=== PATIENT | female | born 1930 | race Caucasian/White ===

== ENCOUNTER 2016-03-05 13:46 | Emergency (ER) | payer OTHER ==
[~2016-03-05] VITALS: Ht 170.2 cm; Wt 74.0 kg
[~2016-03-05 13:46] MED LIST: ASPI81TA28 PO; BUPR-267 PO; CALC1TAB10 PO; MECL1TAB42 PO; MULT-190 PO; OMEP20CA9 PO; SERT-234 PO; SIMV20TA2 PO; TPRSR50 PO; ULT50X PO
[2016-03-05 13:51] VITALS: TEMP 36.9; Ht 170.2 cm; Wt 74.0 kg
[2016-03-05] MEDS ORDERED: METO25TA3 PO (15:26)
[2016-03-05] MEDS ORDERED: CALC8.5C PO (15:26)
[2016-03-05] MEDS ORDERED: MULT-663 PO (15:26)
[2016-03-05] MEDS ORDERED: TRAM-10 PO (15:26)
[2016-03-05] MEDS ORDERED: METOCLOPRAMIDE HCL INJ 5 MG/ML 2 ML VIAL IV STA (15:31)
[2016-03-05] MEDS ORDERED: SODIUM CHLORIDE 0.9% 500ML 500 ML IV STA (15:31)
--- NOTE | 2016-03-05 15:40 | EMERGENCY ROOM VISIT NOTE ---
History Report prepared by Ra: Ruperto Lam Under the Supervision of: Dr. Farshad Padron M.D. First contact with patient: 15:21 Chief Complaint: CONSTIPATION Stated Complaint: UNABLE TO HAVE BOWEL MOVEMENT Nursing Triage Summary: Had a BM on Tuesday, tried dulcolax. Prior BM to that was the . Lower abd pain. Denies vomiting. History of Present Illness The patient is an 85 year old female who presents to the Emergency Room with complaints of persistent lower abdominal pain that started around 12 days ago. She says the pain started when she became constipated. The patient was constipated for around a week until 5 days ago. That night she moved her bowels a couple times. She had been taking Miralax during the week that she was constipated. Currently, she is not constipated anymore. The patient has a history of diverticulitis, and her last colonoscopy was a while ago. She denies any vomiting. Source of History: patient Onset: 12 days ago Position: abdomen (lower) Timing: other (persistent) Associated Symptoms: No vomiting Note: Associated symptoms: Pain started when she became constipated. She denies current constipation, but the pain persisted. Review of Systems See HPI for pertinent positives & negatives. A total of 10 systems reviewed and were otherwise negative. Past Medical & Surgical Medical Problems: (1) HTN (hypertension) (2) Hyperlipidemia Family History Heart disease Social History Smoking Status: Former Smoker Alcohol Use: none Drug Use: none Marital Status: Occupation Status: retired Current/Historical Medications Scheduled Aspirin (Aspirin Ec), 81 MG PO HS Bupropion Hcl (Bupropion Hcl Er), 150 MG PO QAM Calcium W/ Vitamins D & K (Viactiv), 1 TAB PO DAILY Metoprolol Succinate (Toprol Xl), 25 MG PO DAILY Multiple Minerals W/ Vitamins (Citracal Plus), 2 TAB PO DAILY Ocuvite Preservision (Ocuvite Preservision), 1 TAB PO HS Omeprazole (Prilosec), 20 MG PO DAILY Sertraline (Zoloft), 150 MG PO DAILY Simvastatin (Zocor), 20 MG PO QPM Tramadol (Ultram), 50 MG PO HS Scheduled PRN Meclizine Hcl (Meclizine Hcl), 25 MG PO TID PRN for Dizziness or Vertigo Allergies Coded Allergies: Cephalosporins (Unverified Allergy, Unknown, HIVES/RASH, 03/05/16) Celecoxib (Unverified Adverse Reaction, Unknown, upset stomach, 03/05/16) Venlafaxine (Verified Adverse Reaction, Unknown, GI UPSET, 03/05/16) Physical Exam Vital Signs Date Time Temp Pulse Resp B/P Pulse Ox O2 Delivery O2 Flow Rate FiO2 03/05/16 19:33 62 16 166/64 92 03/05/16 17:42 61 16 140/80 97 03/05/16 16:24 64 03/05/16 16:00 70 16 149/82 03/05/16 13:51 36.9 81 18 151/84 94 Room Air Physical Exam GENERAL: Patient is a healthy-appearing well-nourished HEAD: Normocephalic atraumatic EYES: Ocular movements intact pupils equal and react to light OROPHARYNX mucous membranes are moist no exudates present no erythema or edema present NECK: Supple no nuchal rigidity CHEST: Good equal expansion LUNGS: Clear and equal to auscultation CARDIAC: Normal S1 and S2 ABDOMEN: Soft, mild tenderness to RLQ and LLQ, no guarding BACK: No CVA tenderness EXTREMITIES: No pain upon palpation normal muscle strength in all groups no clubbing cyanosis or edema NEURO: Patient is following commands is answering questions appropriately. Alert and oriented x3 Cranial Nerves 2-12 grossly intact Medical Decision & Procedures ER Provider Diagnostic Interpretation: CT results as stated below per my review and radiologist interpretation: ABDOMEN AND PELVIS CT WITH IV AND ORAL CONTRAST CT DOSE: 734.74 mGycm HISTORY: Generalized abdominal pain. TECHNIQUE: Multiaxial CT images of the abdomen and pelvis were performed following the use of intravenous and oral contrast. COMPARISON STUDY: Abdomen and pelvis CT 06/25/2011. FINDINGS: There is a 4.3 x 3.7 cm abdominal aortic aneurysm. This is increased in size in the interval. The heart is mildly enlarged. Bibasilar linear densities consistent with subsegmental atelectasis. There is a right total hip arthroplasty. This results in suboptimal evaluation of the pelvic structures due to the metallic artifact. There is posterior decompression and fusion within the lumbar spine. There is 3 mm of periprosthetic lucency surrounding the bilateral L1 pedicle screws. This is consistent with loosening. A 5 mm hypodense lesion within the right hepatic lobe remain stable. Therefore, this favors a cyst. The gallbladder, pancreas, spleen, and adrenal glands are unremarkable. The kidneys enhance normally. No hydronephrosis. There is pelvic floor collapse. Prior hysterectomy. The bladder is not well-distended but appears unremarkable. Contrast extends into the rectum. Colonic diverticulosis. No bowel wall thickening or obstruction. The appendix is surgically absent. No retroperitoneal lymphadenopathy. Focal area of soft tissue thickening anterior to the L1-L2 disc space. This measures up to 1.5 cm in thickness. However, there is gas within the L1-L2 disc space and no bony erosion. Therefore, this is unlikely to represent a discitis/osteomyelitis. Mildly distended right iliopsoas bursa measuring up to 1.8 cm in thickness. Small amount of fluid lateral to the greater trochanter which measures 1.5 x 3.6 cm. This may represent a trochanteric bursitis. IMPRESSION: 1. No bowel wall thickening or obstruction. 2. Increase in size in the 4.3 x 3.7 cm infrarenal abdominal aortic aneurysm. 3. Posterior decompression and fusion from L1 through L5. Abnormal periprosthetic lucency surrounding the bilateral L1 pedicle screws which favors loosening. 4. There is also focal soft tissue thickening anterior to the L1-L2 disc space level which is nonspecific. There is normal gas within the L1-L2 disc space and no endplate erosions. Therefore, this is unlikely to represent a discitis/osteomyelitis. Clinical correlation recommended. In addition, follow-up abdomen and pelvis CT in one month is recommended to ensure stability of this finding. 5. Mildly distended right iliopsoas bursa. This is consistent with a bursitis. 6. Small fluid collection lateral to the right greater trochanter. This likely represents a trochanteric bursitis. Electronically signed by: Rainer Manuel M.D. 03/05/2016 7:20 PM Dictated Date/Time: 03/05/2016 7:08 PM Laboratory Results 03/05/16 15:44 Red Blood Count 4.26, Mean Corpuscular Volume 89.4, Mean Corpuscular Hemoglobin 29.1, Mean Corpuscular Hemoglobin Concent 32.5, Mean Platelet Volume 8.9, Neutrophils (%) (Auto) 61.9, Lymphocytes (%) (Auto) 26.0, Monocytes (%) (Auto) 9.4, Eosinophils (%) (Auto) 1.6, Basophils (%) (Auto) 1.0, Neutrophils # (Auto) 4.14, Lymphocytes # (Auto) 1.74, Monocytes # (Auto) 0.63, Eosinophils # (Auto) 0.11, Basophils # (Auto) 0.07 03/05/16 15:44 Test 03/05/16 00:00 03/05/16 15:44 Urine Color YELLOW Urine Appearance CLEAR (CLEAR) Urine pH 5.0 (4.5-7.5) Urine Specific [place] 1.008 (1.000-1.030) Urine Protein NEG (NEG) Urine Glucose (UA) NEG (NEG) Urine Ketones NEG (NEG) Urine Occult Blood TRACE (NEG) Urine Nitrite NEG (NEG) Urine Bilirubin NEG (NEG) Urine Urobilinogen NEG (NEG) Urine Leukocyte Esterase SMALL (NEG) Urine WBC (Auto) 1-5 /hpf (0-5) Urine RBC (Auto) 0-4 /hpf (0-4) Urine Hyaline Casts (Auto) 0 /lpf (0-5) Urine Epithelial Cells (Auto) 10-20 /lpf (0-5) Urine Bacteria (Auto) NEG (NEG) White Blood Count 6.70 K/uL (4.8-10.8) Red Blood Count 4.26 M/uL (4.2-5.4) Hemoglobin 12.4 g/dL (12.0-16.0) Hematocrit 38.1 % (37-47) Mean Corpuscular Volume 89.4 fL (80-100) Mean Corpuscular Hemoglobin 29.1 pg (25-34) Mean Corpuscular Hemoglobin Concent 32.5 g/dl (32-36) Platelet Count 313 K/uL (130-400) Mean Platelet Volume 8.9 fL (7.4-10.4) Neutrophils (%) (Auto) 61.9 % Lymphocytes (%) (Auto) 26.0 % Monocytes (%) (Auto) 9.4 % Eosinophils (%) (Auto) 1.6 % Basophils (%) (Auto) 1.0 % Neutrophils # (Auto) 4.14 K/uL (1.4-6.5) Lymphocytes # (Auto) 1.74 K/uL (1.2-3.4) Monocytes # (Auto) 0.63 K/uL (0.11-0.59) Eosinophils # (Auto) 0.11 K/uL (0-0.5) Basophils # (Auto) 0.07 K/uL (0-0.2) RDW Standard Deviation 45.6 fL (36.4-46.3) RDW Coefficient of Variation 13.9 % (11.5-14.5) Immature Granulocyte % (Auto) 0.1 % Immature Granulocyte # (Auto) 0.01 K/uL (0.00-0.02) Anion Gap 11.0 mmol/L (3-11) Est Creatinine Clear Calc Drug Dose 37.3 ml/min Estimated GFR () 48.4 Estimated GFR (Non- 41.8 BUN/Creatinine Ratio 19.8 (10-20) Calcium Level 9.1 mg/dl (8.5-10.1) Total Bilirubin 0.3 mg/dl (0.2-1) Direct Bilirubin < 0.1 mg/dl (0-0.2) Aspartate Amino Transf (AST/SGOT) 16 U/L (15-37) Alanine Aminotransferase (ALT/SGPT) 14 U/L (12-78) Alkaline Phosphatase 97 U/L (45-117) Total Protein 8.1 gm/dl (6.4-8.2) Albumin 3.7 gm/dl (3.4-5.0) Lipase 227 U/L (73-393) Labs reviewed by ED physician. Medications Administered Medications (Trade) Dose Ordered Sig/Vaughn Route Start Time Stop Time Status Last Admin Dose Admin Sodium Chloride (Nss 500ml) 500 ml @ 999 mls/hr Q31M STAT IV 03/05/16 15:31 03/05/16 16:01 DC 03/05/16 16:03 999 MLS/HR Metoclopramide HCl (Reglan Inj) 10 mg NOW STAT IV 03/05/16 15:31 03/05/16 15:33 DC 03/05/16 16:03 10 MG ED Course 1525: Past medical records reviewed. The patient was evaluated in room A11B. A complete history and physical examination was performed. 1531: Ordered Reglan Inj 10 mg IV, NSS 500 ml @ 999 mls/hr IV. 1936: I reevaluated the patient and she is resting comfortably. The patient verbally expressed understanding and agreement of the treatment plan. The patient will be discharged. Medical Decision Differential diagnosis: Etiologies such as appendicitis, diverticulitis, PUD, biliary pathology, UTI, pancreatitis, obstruction, mesenteric ischemia, aortic pathology, infections, inflammatory bowel disease, renal colic, as well as others were entertained. This is an 85-year-old female who presents emergency department bowel movement pencil thin stools and having difficulty with a bowel movement since the . The patient is requesting a CAT scan to get a better look and does not feel that she is constipated. She has a normal CBC normal renal renal profile normal liver profile normal lipase. Based on the patient's complaint she was sent for a CAT scan of the abdomen pelvis. No an IV was established, the patient was given normal saline bolus as well as Reglan. The CAT scan does not show any evidence of obstruction. I do believe that the patient can be placed on magnesium citrate for a cleanout. I did stress the need for follow-up with gastroenterology to the patient as well as follow-up with the patient's primary care physician and have a repeat CAT scan of the abdomen pelvis performed in 1 month. Repeat abdominal examination revealed no tenderness on examination. I believe that the patient as well as to be discharged home. Patient was in agreement with the treatment plan. Impression Primary Impression: Abdominal pain Additional Impression: Constipation Scribe Attestation The scribe's documentation has been prepared under my direction and personally reviewed by me in its entirety. I confirm that the note above accurately reflects all work, treatment, procedures, and medical decision making performed by me. Departure Information Dispostion Home / Self-Care Referrals Demetris Garcia M.D. (PCP) Forms HOME CARE DOCUMENTATION FORM, IMPORTANT VISIT INFORMATION, School Instructions, Work Instructions Patient Instructions Constipation, ED Diet Clear Liquid, ED Epigastric Pain [facility], [facility] Additional Instructions Take 1/2 bottle of Mag Citrate Repeat second half in six hours Clear liquid diet next [address] scan in one month with PCP You have been examined and treated today on an emergency basis only. This is not a substitute for, or an effort to provide, complete comprehensive medical care. It is impossible to recognize and treat all injuries or illnesses in a single emergency department visit. It is therefore important that you follow up closely with Dr Garcia. Call as soon as possible for an appointment. Thank you for your time and consideration. I look forward to speaking with you again soon. Please don't hesitate to call us if you have any questions. Problem Qualifiers Primary Impression: Abdominal pain Abdominal location: epigastric Qualified Codes: R10.13 - Epigastric pain Additional Impression: Constipation Constipation type: unspecified constipation type Qualified Codes: K59.00 - Constipation, unspecified
[2016-03-05] MEDS ORDERED: OPTIRAY 320 IV PRN (15:45)
[2016-03-05 15:57] LABS: BASO ABS # 0.07 K/uL (0-0.2); COMPLETE YES; EOS % 1.6 %; HEMATOCRIT 38.1 % (37-47); IG% 0.1 %; LYMPH ABS # 1.74 K/uL (1.2-3.4); MEAN CELL VOLUME 89.4 fL (80-100); MEAN CORPUSCULAR HEMOGLOBIN 29.1 pg (25-34); MEAN CORPUSCULAR HGB CONC 32.5 g/dl (32-36); MEAN PLATELET VOLUME 8.9 fL (7.4-10.4); MONO % 9.4 %; NEUT % 61.9 %; PLATELET COUNT 313 K/uL (130-400); RED BLOOD COUNT 4.26 M/uL (4.2-5.4)
[2016-03-05 16:19] LABS: ALT/SGPT 14 U/L (12-78); BLOOD UREA NITROGEN 24 mg/dl (7-18); BUN/CREATININE RATIO 19.8 (10-20); CALCIUM 9.1 mg/dl (8.5-10.1); CARBON DIOXIDE 27 mmol/L (21-32); CHLORIDE 104 mmol/L (98-107); GLUCOSE 101 mg/dl (70-99); POTASSIUM 4.1 mmol/L (3.5-5.1); SODIUM 142 mmol/L (136-145)
[2016-03-05 16:22] LABS: ALKALINE PHOSPHATASE 97 U/L (45-117); AST/SGOT 16 U/L (15-37)
--- NOTE | 2016-03-05 19:22 | DIAGNOSTIC IMAGING REPORT ---
ABDOMEN AND PELVIS CT WITH IV AND ORAL CONTRAST CT DOSE: 734.74 mGycm HISTORY: Generalized abdominal pain. TECHNIQUE: Multiaxial CT images of the abdomen and pelvis were performed following the use of intravenous and oral contrast. COMPARISON STUDY: Abdomen and pelvis CT 06/25/2011. FINDINGS: There is a 4.3 x 3.7 cm abdominal aortic aneurysm. This is increased in size in the interval. The heart is mildly enlarged. Bibasilar linear densities consistent with subsegmental atelectasis. There is a right total hip arthroplasty. This results in suboptimal evaluation of the pelvic structures due to the metallic artifact. There is posterior decompression and fusion within the lumbar spine. There is 3 mm of periprosthetic lucency surrounding the bilateral L1 pedicle screws. This is consistent with loosening. A 5 mm hypodense lesion within the right hepatic lobe remain stable. Therefore, this favors a cyst. The gallbladder, pancreas, spleen, and adrenal glands are unremarkable. The kidneys enhance normally. No hydronephrosis. There is pelvic floor collapse. Prior hysterectomy. The bladder is not well-distended but appears unremarkable. Contrast extends into the rectum. Colonic diverticulosis. No bowel wall thickening or obstruction. The appendix is surgically absent. No retroperitoneal lymphadenopathy. Focal area of soft tissue thickening anterior to the L1-L2 disc space. This measures up to 1.5 cm in thickness. However, there is gas within the L1-L2 disc space and no bony erosion. Therefore, this is unlikely to represent a discitis/osteomyelitis. Mildly distended right iliopsoas bursa measuring up to 1.8 cm in thickness. Small amount of fluid lateral to the greater trochanter which measures 1.5 x 3.6 cm. This may represent a trochanteric bursitis. IMPRESSION: 1. No bowel wall thickening or obstruction. 2. Increase in size in the 4.3 x 3.7 cm infrarenal abdominal aortic aneurysm. 3. Posterior decompression and fusion from L1 through L5. Abnormal periprosthetic lucency surrounding the bilateral L1 pedicle screws which favors loosening. 4. There is also focal soft tissue thickening anterior to the L1-L2 disc space level which is nonspecific. There is normal gas within the L1-L2 disc space and no endplate erosions. Therefore, this is unlikely to represent a discitis/osteomyelitis. Clinical correlation recommended. In addition, follow-up abdomen and pelvis CT in one month is recommended to ensure stability of this finding. 5. Mildly distended right iliopsoas bursa. This is consistent with a bursitis. 6. Small fluid collection lateral to the right greater trochanter. This likely represents a trochanteric bursitis. Electronically signed by: Rainer Manuel M.D. 03/05/2016 7:20 PM Dictated Date/Time: 03/05/2016 7:08 PM
[2016-03-05 19:33] VITALS: BP 166/64; PULSE 62; O2SAT 92
[2016-03-05 19:37] LABS: URINE APPEARANCE CLEAR (CLEAR); URINE BILIRUBIN NEG (NEG); URINE COLOR YELLOW; URINE NITRITE NEG (NEG); URINE SPECIFIC GRAVITY 1.008 (1.000-1.030); UROBILINOGEN NEG (NEG)
[2016-03-05 19:38] LABS: MANUAL MICROSCOPIC REQUIRED? NO; REVIEW REQ? NO
[2016-03-05] MEDS ORDERED: MAGNESIUM CITRATE 296 ML/BTL ONE (20:03)
[2016-03-05] MEDS ORDERED: MAGNESIUM CITRATE 296 ML/BTL PO STA (20:04)
[2016-03-26] MEDS ORDERED: ACET-1256 PO ×2 (13:28)
== END 2016-03-05 20:15 | disposition home or self-care (01) ==
LOC: EDBD 13:46 → C.EDB 13:47 → C.EDA 20:15
DX: R10.13 Epigastric pain (principal); K59.00 Constipation, unspecified; I10 Essential (primary) hypertension; E78.5 Hyperlipidemia, unspecified; Z87.891 Personal history of nicotine dependence; Z79.82 Long term (current) use of aspirin; Z79.899 Other long term (current) drug therapy

== ENCOUNTER → 2016-03-26 | Outpatient (CLI) | payer OTHER ==
[~2016-03-26] MED LIST changes: +ACET-1256 PO; -CALC1TAB10 PO; +CALC8.5C PO; +METO25TA3 PO; +MULT-663 PO; -TPRSR50 PO; +TRAM-10 PO; -ULT50X PO
--- NOTE | 2016-03-26 15:38 | DIAGNOSTIC IMAGING REPORT ---
LUMBAR SPINE RADIOGRAPHS, INCLUDING FLEXION AND EXTENSION CLINICAL HISTORY: Lumbago. History of fusion. COMPARISON: Lumbar spine MRI June 22, 2007 and lumbar spine fluoroscopic images July 11, 2013. FINDINGS: There are findings consistent with a posterior decompression with bilateral pedicle screws at the L1-L5 levels. The hardware is intact. There is lucency surrounding the L1 pedicle screws. No acute fracture is identified. There is 8 mm of retrolisthesis of L1 on L2 and minimal retrolisthesis of L2 on L3. This does not significantly change with flexion or extension. Extensive atherosclerotic plaque of the abdominal aorta is noted. Right hip arthroplasty is incidentally noted. IMPRESSION: 1. Status post L1-L5 bilateral pedicle screw fusion with decompression. Lucency surrounding the L1 pedicle screws suggests loosening. 2. No acute lumbar spine fracture. 3. Mild retrolisthesis of L1 on L2 and L2 on L3 which does not significantly change with flexion or extension. Electronically signed by: Neymar rCum M.D. 03/26/2016 3:36 PM Dictated Date/Time: 03/26/2016 3:29 PM
== END | disposition home or self-care (01) ==
LOC: C.RADBC 14:36
PROVIDERS: ATTEND Anesthesiology
DX: M54.5 Low back pain (principal)

== ENCOUNTER → 2016-05-31 | Outpatient (CLI) | payer OTHER ==
[~2016-05-31] MED LIST changes: -METO25TA3 PO
--- NOTE | 2016-05-31 15:32 | DIAGNOSTIC IMAGING REPORT ---
MRI OF THE LUMBAR SPINE WITHOUT CONTRAST CLINICAL HISTORY: Lumbar pain. COMPARISON STUDY: Lumbar spine MRI June 22, 2007 and lumbar spine fluoroscopic images July 11, 2013 and lumbar spine radiographs March 26, 2016. TECHNIQUE: Utilizing a 1.5 Khushi magnet and dedicated coil, multiplanar, multiecho imaging of the lumbar spine was performed without IV contrast. FINDINGS: For purposes of numbering on this exam, the L5-S1 disc space is assigned to axial image 27 of 30. There is a posterior decompression with bilateral pedicle screws at the L1, L2, L3, L4 and L5 levels. There is slight retrolisthesis of L1 on L2. No suspicious marrow replacement is present. There is a hemangioma within T12 vertebral body. The conus terminates at the L1 level. There is a 2.8 x 1.2 x 1.7 cm laminectomy bed fluid collection at the L4 level. An abdominal aortic aneurysm is suboptimally assessed on this exam but is similar to CT of March 05, 2016, measuring approximate 4.3 cm in caliber. L1-2: There is disc space narrowing with disc bulge and a central disc protrusion that results in moderate narrowing of the central canal. This is slightly increased since MRI of June 22, 2007. Findings are suboptimally assessed due to artifact related to the hardware. L2-3: The central canal and neural foramen are patent. L3-4: There is disc space narrowing with a disc bulge. The central canal is patent. There is mild narrowing of the left neural foramen. L4-5: Central canal and neural foramen are patent. L5-S1: Central canal and neural foramen are patent. IMPRESSION: 1. Status post L1-L5 bilateral pedicle screw fusion with decompression. 2. Small 2.8 x 1.2 x 1.7 cm laminectomy bed fluid collection at the L4 level. This likely reflects a seroma. A pseudomeningocele could appear similar although is considered less likely. 3. Disc bulge with a moderate-sized central disc protrusion at L1-L2. Resultant moderate narrowing of the central canal. 4. Mild multilevel neural foraminal stenosis. Electronically signed by: Neymar Crum M.D. 05/31/2016 3:29 PM Dictated Date/Time: 05/31/2016 3:21 PM
--- NOTE | 2016-05-31 15:41 | DIAGNOSTIC IMAGING REPORT ---
MRI OF THE THORACIC SPINE WITHOUT CONTRAST CLINICAL HISTORY: Thoracic pain. COMPARISON: Chest CT January 07, 2012. TECHNIQUE: Utilizing a 1.5 Khushi magnet and dedicated coil, multiplanar, multiecho imaging of the thoracic spine was performed without IV contrast. FINDINGS: Alignment of the thoracic spine is anatomic. Vertebral body heights are maintained. There is no intracanalicular mass or fluid collection. Thoracic cord signal and caliber are normal. T1 and T2 hyperintense lesions within the thoracic spine are consistent with hemangiomas. There is no suspicious marrow replacement. Paravertebral soft tissues are unremarkable. Central canal and neural foramen are patent. No disc herniations are identified. Lumbar spinal hardware is better depicted on the MRI of the lumbar spine. IMPRESSION: Unremarkable MRI of the thoracic spine. Electronically signed by: Neymar Crum M.D. 05/31/2016 3:40 PM Dictated Date/Time: 05/31/2016 3:34 PM
== END | disposition home or self-care (01) ==
LOC: C.MRI 14:13
PROVIDERS: ATTEND Orthopaedic Surgery Orthopaedic Surgery of the Spine
DX: M54.6 Pain in thoracic spine (principal); M54.5 Low back pain

== ENCOUNTER → 2016-07-06 | Outpatient (CLI) | payer OTHER ==
--- NOTE | 2016-07-06 16:38 | MAMMOGRAPHY REPORT ---
BILATERAL DIGITAL SCREENING MAMMOGRAM WITH CAD: 07/06/2016 CLINICAL HISTORY: Routine screening. Patient has no complaints. TECHNIQUE: Bilateral CC and MLO views were obtained. Current study was also evaluated with a Comput er Aided Detection (CAD) system. COMPARISON: Comparison is made to exams dated: 07/04/2015 mammogram, 07/02/2014 mammogram, 06/28/2012 mammogram, 06/28/2011 mammogram, 06/29/2010 mammogram, and 06/24/2010 mammogram - [facility]. BREAST COMPOSITION: There are scattered areas of fibroglandular density in both breasts. FINDINGS: There are scattered bilateral benign-appearing rounded rim calcifications. Mild to modera te vascular calcifications in the breasts. No suspicious mass, architectural distortion or cluster of suspicious microcalcifications is seen. IMPRESSION: ACR BI-RADS CATEGORY 1: NEGATIVE There is no mammographic evidence of malignancy. A 1 year screening mammogram is recommended. The p atient will receive written notification of the results. Approximately 10% of breast cancers are not detected with mammography. A negative mammographic repor t should not delay biopsy if a clinically suggestive mass is present. Evy Huber M.D. ay/:07/06/2016 14:43:30 Ballast Regulator Operator: Desiree BALTAZAR(Michel)(Baylee), [facility] letter sent: Normal 1/2 BI-RADS Code: ACR BI-RADS Category 1: Negative
== END | disposition home or self-care (01) ==
LOC: C.MAMM 13:05
PROVIDERS: ATTEND Internal Medicine
DX: Z12.31 Encounter for screening mammogram for malignant neoplasm of breast (principal)

== ENCOUNTER → 2016-07-07 | Outpatient (CLI) | payer OTHER ==
--- NOTE | 2016-07-07 12:06 | DIAGNOSTIC IMAGING REPORT ---
ABDOMINAL AORTIC ULTRASOUND CLINICAL HISTORY: Aneurysm of infrarenal abdominal aorta. COMPARISON STUDY: Abdominal aortic ultrasound May 12, 2015. FINDINGS: There is moderate atherosclerotic plaque. An infrarenal abdominal aortic aneurysm is again noted. This aneurysm measures 3.8 x 3.6 cm. This is similar to exam of May 12, 2015 when it measured approximately 3.8 x 4 cm. IMPRESSION: No significant change in the infrarenal abdominal aortic aneurysm which measures approximately 3.8 cm since ultrasound of May 12, 2015. Electronically signed by: Neymar Crum M.D. 07/07/2016 12:04 PM Dictated Date/Time: 07/07/2016 12:02 PM
== END | disposition home or self-care (01) ==
LOC: C.ULTRBC 11:26
PROVIDERS: ATTEND Internal Medicine
DX: I71.4 Abdominal aortic aneurysm, without rupture (principal)

== ENCOUNTER → 2016-07-26 | Outpatient (CLI) | payer OTHER ==
[2016-07-26 14:45] LABS: HEMATOCRIT 36.7 % (37-47); MEAN CELL VOLUME 83.6 fL (80-100); MEAN CORPUSCULAR HEMOGLOBIN 25.5 pg (25-34); MEAN CORPUSCULAR HGB CONC 30.5 g/dl (32-36); PLATELET COUNT 312 K/uL (130-400); RED BLOOD COUNT 4.39 M/uL (4.2-5.4); WHITE BLOOD COUNT 7.01 K/uL (4.8-10.8)
--- NOTE | 2016-07-26 17:39 | DIAGNOSTIC IMAGING REPORT ---
THREE-PHASE BONE SCAN OF THE HIPS CLINICAL HISTORY: RIGHT HIP PAIN COMPARISON STUDY: 03/10/2015, CT scan dated 03/05/2016, conventional radiographic study dated 03/12/2014 FINDINGS: The patient was injected with 26 mCi of technetium 99m MDP. Anterior posterior vascular sequences were performed centered on the hips. Flow appears symmetric. Blood pool images demonstrated slight increased activity in the region the right hip. Delayed images demonstrate a focus of increased activity overlying the right symphysis pubis. This likely represents the bladder. There is a photopenic defect involving the right femoral head consistent with patient's known total right hip arthroplasty. There is increased activity surrounding the femoral portion of the prosthesis. This is increased when compared the prior March 2015 study. The findings could indicate loosening. Correlation with recent conventional radiographs is advocated. IMPRESSION: 1. Increasing nonspecific activity surrounding the femoral portion of the patient's right hip prosthesis. While nonspecific, this could indicate loosening. Correlation with recent conventional radiographs is recommended. Electronically signed by: Ethan Sotelo M.D. 07/26/2016 5:37 PM Dictated Date/Time: 07/26/2016 5:31 PM
== END | disposition home or self-care (01) ==
LOC: C.NUCL 13:39
PROVIDERS: ATTEND Orthopaedic Surgery Sports Medicine
DX: M25.551 Pain in right hip (principal); Z96.641 Presence of right artificial hip joint

== ENCOUNTER → 2016-08-06 | Outpatient (CLI) | payer OTHER ==
--- NOTE | 2016-08-06 10:26 | DIAGNOSTIC IMAGING REPORT ---
RIGHT HIP CT CT DOSE: 329.69 mGy.cm HISTORY: RT HIP PAIN TECHNIQUE: Multiaxial CT images of the right hip were performed and reformatted in the sagittal and coronal plane without the use of contrast. COMPARISON: Abdomen and pelvis CT 03/05/2016. FINDINGS: There is a right total hip arthroplasty. Metallic artifact results in suboptimal evaluation of the right hip. The hardware appears intact. No abnormal periprosthetic lucency. No definite fracture or dislocation within the right hip. The fluid collection within the lateral aspect of the right hip is not clearly identified and may have resolved in the interval. However, this is suboptimally assessed due to the lack of intravenous contrast. No masses or hematoma within the right hip. IMPRESSION: 1. Right total hip arthroplasty. No fracture or dislocation within the right hip. 2. Suboptimal evaluation of the right hip due to the metallic artifact. The fluid collection within the lateral aspect of the right seen on the prior study is not clearly identified and likely resolved. Electronically signed by: Rainer Manuel M.D. 08/06/2016 10:25 AM Dictated Date/Time: 08/06/2016 10:19 AM
== END | disposition home or self-care (01) ==
LOC: C.ULTR 09:24 → EDSTATUS 10:00
PROVIDERS: ATTEND Orthopaedic Surgery Sports Medicine
DX: M25.551 Pain in right hip (principal); M70.61 Trochanteric bursitis, right hip

== ENCOUNTER 2017-03-11 15:11 | Emergency (ER) | payer OTHER ==
[~2017-03-11] VITALS: Ht 170.2 cm; Wt 73.2 kg
[~2017-03-11 15:11] MED LIST changes: -ASPI81TA28 PO; -BUPR-267 PO; -MULT-190 PO; -MULT-663 PO; -OMEP20CA9 PO; -SERT-234 PO; -SIMV20TA2 PO; -TRAM-10 PO
[2017-03-11 15:15] VITALS: TEMP 37.1; Ht 170.2 cm; Wt 73.2 kg
[2017-03-11] MEDS ORDERED: MULT-663 PO (15:26)
[2017-03-11] MEDS ORDERED: TRAM-10 PO (15:26)
[2017-03-11] MEDS ORDERED: METO25TA3 PO (16:08)
[2017-03-11] MEDS ORDERED: GABA-113 PO (16:08)
[2017-03-11] MEDS ORDERED: SODIUM CHLORIDE 0.9% 1000ML 1,000 ML IV STA (16:09)
[2017-03-11] MEDS ORDERED: OPTIRAY 320 IV PRN (16:15)
[2017-03-11 16:28] LABS: BASO % 0.9 %; BASO ABS # 0.06 K/uL (0-0.2); EOS % 1.6 %; EOS ABS # 0.11 K/uL (0-0.5); HEMATOCRIT 39.5 % (37-47); HEMOGLOBIN 12.9 g/dL (12.0-16.0); IG# 0.01 K/uL (0.00-0.02); LYMPH % 26.9 %; LYMPH ABS # 1.85 K/uL (1.2-3.4); MEAN CELL VOLUME 82.1 fL (80-100); MEAN CORPUSCULAR HEMOGLOBIN 26.8 pg (25-34); MEAN CORPUSCULAR HGB CONC 32.7 g/dl (32-36); MEAN PLATELET VOLUME 9.4 fL (7.4-10.4); MONO % 8.3 %; MONO ABS # 0.57 K/uL (0.11-0.59); NEUT % 62.2 %; NEUT ABS # 4.29 K/uL (1.4-6.5); PLATELET COUNT 300 K/uL (130-400); RED CELL DISTRIBUTION WIDTH CV 15.2 % (11.5-14.5); RED CELL DISTRIBUTION WIDTH SD 45.6 fL (36.4-46.3); WHITE BLOOD COUNT 6.89 K/uL (4.8-10.8)
[2017-03-11 16:30] LABS: ISTAT IONIZED CALCIUM 1.23 mmol/l (1.12-1.32); ISTAT POTASSIUM 3.8 mEq/L (3.3-5.0)
--- NOTE | 2017-03-11 16:48 | EMERGENCY ROOM VISIT NOTE ---
History Report prepared by Ra: Quinton Johansen Under the Supervision of: Dr. Lance Herrera M.D. First contact with patient: 15:45 Chief Complaint: ILLNESS Stated Complaint: ILLNESS, VOMITING History of Present Illness The patient is a 86 year old female who presents to the Emergency Room with complaints of persistent generalized illness beginning three days ago. Her symptoms include nausea, headache, and fatigue. She also complains of dizziness after standing up and looking to the right (but not the left). The patient denies chest pain, SOB, diarrhea, fevers, ear pain, vomiting, or abdominal pain. She states that she as constipated this week. She denies any new medication changes. The patient states that she has been eating very little recently due to her nausea. She has a history of depression. She states that she has not left her house in about a month due to the weather. Source of History: patient Onset: Three days ago Position: other (generalized) Quality: other (illness) Timing: other (persistent) Associated Symptoms: + headache, + nausea, + fatigue, No fevers, No chest pain, No SOB, No vomiting, No abdominal pain, No diarrhea Note: The patient denies ear pain. She also complains of dizziness after standing up and looking to the right (but not the left). Review of Systems See HPI for pertinent positives & negatives. A total of 10 systems reviewed and were otherwise negative. Past Medical & Surgical Medical Problems: (1) Abrasions of multiple sites (2) Contusion of multiple sites (3) Contusion of multiple sites (4) Depression (5) Fall (6) Fall (7) Hip fracture, right (8) HTN (hypertension) (9) Hyperlipidemia (10) Minor head injury (11) Wound infection Surgical Problems: (1) Postoperative state Old medical records were reviewed. Nurse's notes were reviewed and I agree with. Family History Heart disease Social History Smoking Status: Former Smoker Alcohol Use: none Drug Use: none Marital Status: Occupation Status: retired Current/Historical Medications Scheduled Aspirin (Aspirin Ec), 81 MG PO HS Bupropion Hcl (Bupropion Hcl Er), 150 MG PO QAM Gabapentin (Neurontin), 300 MG PO TID Metoprolol Succ (Toprol Xl) (Toprol-Xl), 25 MG PO DAILY Multiple Minerals W/ Vitamins (Citracal Plus), 2 TAB PO DAILY Ocuvite Preservision (Ocuvite Preservision), 1 TAB PO HS Omeprazole (Prilosec), 20 MG PO DAILY Ondasetron Odt (Zofran Odt), 4 MG SL Q6H Sertraline (Zoloft), 150 MG PO DAILY Simvastatin (Zocor), 20 MG PO QPM Tramadol (Ultram), 50 MG PO TID Allergies Coded Allergies: Cephalosporins (Unverified Allergy, Unknown, HIVES/RASH, 03/05/16) Celecoxib (Unverified Adverse Reaction, Unknown, upset stomach, 03/05/16) Venlafaxine (Verified Adverse Reaction, Unknown, GI UPSET, 03/05/16) Physical Exam Vital Signs Date Time Temp Pulse Resp B/P (MAP) Pulse Ox O2 Delivery O2 Flow Rate FiO2 03/11/17 18:09 64 18 141/73 95 03/11/17 16:29 71 18 157/85 93 Room Air 03/11/17 15:15 37.1 76 18 174/88 92 Room Air Physical Exam General: Non-ill appearing older female in no acute distress. HEENT: Normal cephalic atraumatic. Pupils are equal round and reactive to light. Extraocular movements are intact. Oropharynx is pink with moist mucous membranes. No swelling of the mouth lips or tongue. Neck: Supple with a midline trachea. No meningeal signs or stiffness, no JVD or bruits. No Stridor. Chest: Clear to auscultation bilaterally. No wheezes or rhonchi. No increased work of breathing. Heart: regular rate and rhythm. Abdomen: Soft , nondistended. Mildly tender in the lower abdomen. No rebound, guarding or rigidity. Extremities: No cyanosis clubbing or edema. No calf tenderness or assymetry Spine/Back. Non tender to palpation. No CVA tenderness Skin: Good turgor without rashes. Neurologic exam: Cranial nerves two through 12 are intact. Motor and sensation are intact and symmetrical throughout. Medical Decision & Procedures ER Provider Diagnostic Interpretation: Radiology results as stated below per my review and radiologist interpretation: CT SCAN OF THE BRAIN WITHOUT IV CONTRAST FINDINGS: Brain parenchyma: There are age-related involutional changes noting mild subcortical and periventricular microangiopathic change. There is no hemorrhage, mass effect, or evidence of acute territorial ischemia by CT criteria. Martin-white matter is preserved. No extra-axial fluid collection is seen. Ventricles, sulci, cisterns: Prominent secondary to involutional change. Intracranial vasculature: There is atherosclerotic calcification of the cavernous carotid and vertebral arteries. Calvarium: Unremarkable. Sinuses and mastoids: Because of thickening is noted within the left sphenoid sinus. The remaining visualized paranasal sinuses are clear. The mastoid air cells are well pneumatized. Orbits: The bony orbits are grossly intact. There are bilateral ocular lens implants. IMPRESSION: There is no hemorrhage, mass effect, or evidence of acute territorial ischemia by CT criteria. Electronically signed by: Georges Hodge M.D. 03/11/2017 5:[address] SCAN OF THE ABDOMEN AND PELVIS WITH IV CONTRAST FINDINGS: Lung bases: The heart is enlarged and without pericardial effusion. The coronary arteries and mitral annulus are densely calcified. The lung bases are clear noting dependent atelectasis. Liver: The contrast-enhanced liver is normal in size, contour, and attenuation. 5. Infiltration is seen adjacent to falciform ligament. There is minimal central intrahepatic biliary ductal dilatation. The hepatic veins and portal veins are patent. Gallbladder: Unremarkable. Spleen: Normal in size and attenuation. Pancreas: Atrophic and grossly unremarkable. Adrenal glands: Unremarkable. Kidneys: The contrast enhanced kidneys are atrophic and without hydronephrosis. The kidneys enhance symmetrically. Abdominal vasculature: There is advanced atherosclerotic calcification and ectasia of the abdominal aorta. An infrarenal abdominal aneurysm measures 3.8 cm in AP diameter and 3.9 cm in transverse diameter. 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 There is ectasia of the right common iliac artery which measures up to 1.7 cm. Bowel: There is moderate sigmoid diverticulosis without CT evidence of acute diverticulitis. Liquid stool is noted in the right colon. No bowel obstruction is seen. The appendix is not identified. Peritoneum: There is no intraperitoneal free air or abdominal ascites. Lymphadenopathy: None. Pelvic viscera: Evaluation of the pelvis is degraded by streak artifact from a right hip arthroplasty. The bladder is decompressed and grossly unremarkable. The uterus is surgically absent. No adnexal lesion is seen. Skeletal structures: The skeletal structures are osteopenic. No lytic or blastic lesions are seen. Lumbar sacral spondylosis is noted. There are postoperative changes from L1 to L5 spinal fusion. Interpedicular screws are present at all levels. There is lucency around the interpedicular screws in the body of L1. This suggests loosening. Soft tissue thickening possibly representing anterior disc herniation is seen at L1-L2. This is unchanged from previous. A right hip arthroplasty is in place. Bursal fluid is noted around the right hip arthroplasty. IMPRESSION: 1. Liquid stool is noted in the right colon. Correlate clinically for evidence of a diarrheal illness. There is no colonic wall thickening or pericolonic inflammation. 2. Moderate sigmoid diverticulosis without CT evidence of acute diverticulitis. 3. Unchanged appearance of a 3.8 x 3.9 cm infrarenal abdominal aortic aneurysm as compared to previous. 4. Cardiomegaly. 5. There is lucency around the intervertebral screws at L1 suggesting loosening. 6. Nonspecific soft tissue thickening anterior to L1-L2 is unchanged and may represent anterior disc herniation. There is no surrounding inflammation. 7. Additional findings as above. Electronically signed by: Georges Hodge M.D. 03/11/2017 5:32 PM SINGLE VIEW CHEST FINDINGS: An AP, portable, upright chest radiograph is compared to study dated 10/07/2013. The examination is degraded by portable technique and patient rotation. The heart is enlarged and there is atherosclerotic calcification of the thoracic aorta. The pulmonary vasculature is noncongested. Chronic interstitial thickening is similar to previous. There is mild bibasilar atelectasis. No airspace consolidation or large pleural effusion is seen. No pneumothorax is identified. The skeletal structures are osteopenic. The bony thorax is grossly intact. IMPRESSION: Cardiomegaly with no acute cardiopulmonary abnormality. Electronically signed by: Georges Hodge M.D. 03/11/2017 5:35 PM Laboratory Results 03/11/17 16:10 Red Blood Count 4.81, Mean Corpuscular Volume 82.1, Mean Corpuscular Hemoglobin 26.8, Mean Corpuscular Hemoglobin Concent 32.7, Mean Platelet Volume 9.4, Neutrophils (%) (Auto) 62.2, Lymphocytes (%) (Auto) 26.9, Monocytes (%) (Auto) 8.3, Eosinophils (%) (Auto) 1.6, Basophils (%) (Auto) 0.9, Neutrophils # (Auto) 4.29, Lymphocytes # (Auto) 1.85, Monocytes # (Auto) 0.57, Eosinophils # (Auto) 0.11, Basophils # (Auto) 0.06 03/11/17 16:10 Test 03/11/17 16:10 03/11/17 16:15 03/11/17 16:17 03/11/17 16:24 White Blood Count 6.89 K/uL (4.8-10.8) Red Blood Count 4.81 M/uL (4.2-5.4) Hemoglobin 12.9 g/dL (12.0-16.0) Hematocrit 39.5 % (37-47) Mean Corpuscular Volume 82.1 fL (80-100) Mean Corpuscular Hemoglobin 26.8 pg (25-34) Mean Corpuscular Hemoglobin Concent 32.7 g/dl (32-36) Platelet Count 300 K/uL (130-400) Mean Platelet Volume 9.4 fL (7.4-10.4) Neutrophils (%) (Auto) 62.2 % Lymphocytes (%) (Auto) 26.9 % Monocytes (%) (Auto) 8.3 % Eosinophils (%) (Auto) 1.6 % Basophils (%) (Auto) 0.9 % Neutrophils # (Auto) 4.29 K/uL (1.4-6.5) Lymphocytes # (Auto) 1.85 K/uL (1.2-3.4) Monocytes # (Auto) 0.57 K/uL (0.11-0.59) Eosinophils # (Auto) 0.11 K/uL (0-0.5) Basophils # (Auto) 0.06 K/uL (0-0.2) RDW Standard Deviation 45.6 fL (36.4-46.3) RDW Coefficient of Variation 15.2 % (11.5-14.5) Immature Granulocyte % (Auto) 0.1 % Immature Granulocyte # (Auto) 0.01 K/uL (0.00-0.02) Est Creatinine Clear Calc Drug Dose 35.7 ml/min Estimated GFR () 51.1 Estimated GFR (Non- 44.1 BUN/Creatinine Ratio 15.8 (10-20) Calcium Level 9.5 mg/dl (8.5-10.1) Total Bilirubin 0.3 mg/dl (0.2-1) Direct Bilirubin < 0.1 mg/dl (0-0.2) Aspartate Amino Transf (AST/SGOT) 17 U/L (15-37) Alanine Aminotransferase (ALT/SGPT) 18 U/L (12-78) Alkaline Phosphatase 118 U/L (45-117) Total Protein 8.5 gm/dl (6.4-8.2) Albumin 3.6 gm/dl (3.4-5.0) Lipase 177 U/L (73-393) Thyroid Stimulating Hormone (TSH) 2.170 uIu/ml (0.300-4.500) Urine Color DK YELLOW Urine Appearance CLOUDY (CLEAR) Urine pH 5.0 (4.5-7.5) Urine Specific [place] 1.024 (1.000-1.030) Urine Protein NEG (NEG) Urine Glucose (UA) NEG (NEG) Urine Ketones TRACE (NEG) Urine Occult Blood 1+ (NEG) Urine Nitrite NEG (NEG) Urine Bilirubin NEG (NEG) Urine Urobilinogen NEG (NEG) Urine Leukocyte Esterase MODERATE (NEG) Urine WBC (Auto) 1-5 /hpf (0-5) Urine RBC (Auto) 0-4 /hpf (0-4) Urine Hyaline Casts (Auto) 1-5 /lpf (0-5) Urine Epithelial Cells (Auto) >30 /lpf (0-5) Urine Bacteria (Auto) NEG (NEG) Bedside Hemoglobin 13.9 g/dl (12.0-16.0) Bedside Hematocrit 41 % (37-47) Bedside Sodium 144 mEq/L (135-144) Bedside Potassium 3.8 mEq/L (3.3-5.0) Bedside Chloride 104 mEq/L (101-112) Bedside Total CO2 25 mEq/l (24-31) Anion Gap 20.0 mmol/L (16-25) Bedside Blood Urea Nitrogen 19 mg/dl (7-18) Bedside Creatinine 1.0 mg/dl (0.6-1.3) Bedside Glucose (other) 98 mg/dl (70-99) Bedside Ionized Calcium ([place]) 1.23 mmol/l (1.12-1.32) Bedside Troponin I < 0.030 ng/ml (0-0.045) Laboratory studies as stated above per my review. Medications Administered Medications (Trade) Dose Ordered Sig/Vaughn Route Start Time Stop Time Status Last Admin Dose Admin Sodium Chloride 1,000 ml @ 999 mls/hr Q1H1M STAT IV 03/11/17 16:09 03/11/17 17:09 DC 03/11/17 16:09 999 MLS/HR Ondansetron HCl (Zofran Inj) 4 mg NOW STAT IV 03/11/17 17:31 03/11/17 17:32 DC 03/11/17 17:44 4 MG Ondansetron HCl (ZOFRAN ODT 4MG Home Pack) 1 homepack UD ONCE PO 03/11/17 18:00 03/11/17 18:01 DC 03/11/17 18:00 1 HOMEPACK ECG Indication: other (fatigue) Rate (beats per minute): 73 Rhythm: normal sinus Findings: no acute ischemic change, no ectopy Comparison ECG Date: October 02, 2013 Change: no significant change ED Course 1546: Past medical records reviewed. The patient was evaluated in room C9, and a complete history and physical examination were performed. 1609: Ordered Sodium Chloride 1000 ml @ 999 mls/hr IV. 1635: The patient appears comfortable. Her other daughter called in and notes that the patient fell and hit her head about a month ago. 1731: Ordered Zofran Inj 4 mg IV. 1755: Upon reevaluation, the patient is resting comfortably. I discussed the results and treatment plan with her. She verbalized agreement of the treatment plan. The patient was discharged home. Medical Decision Differentials include, but are not limited to; dehydration, UTI, cardiac disease , intraabdominal process, intracranial process, and electrolyte or metabolic abnormality. This patient comes in as described above. She comes in after feeling nauseated. She also felt dizzy and weak and had a lot of vague different complaints. She denies any recent fall however her daughter said that she fell and hit her head month or so ago. She has a normal neurologic exam. Her abdomen is benign with some minimal lower abdominal tenderness but no peritonitis. IV access established and she was hydrated with IV normal saline. She was given Zofran 4 mg IV for nausea. EKG ,chest x-ray, urinalysis and culture multiple blood testing was obtained. I also did a CAT scan of her head and abdomen and pelvis. She was reassessed frequently. She has no white count or fever to suggest infection. She has no acute electrode or metabolic abnormalities. EKG does not suggest acute coronary syndrome or arrhythmia troponin is within normal limits. CAT scan of her head was unremarkable. CAT scan of her abdomen shows no acute findings she has an unchanged aneurysm. She feels better after the Zofran. She does feel up to go home. At this point, I do not find any evidence of infection or cardiac disease or surgical process or electrolyte or metabolic abnormality. This could be also related to her depression. I do think she should follow up with Dr. Garcia on Tuesday for recheck and return to ER over the weekend if symptoms worsen. She was given a prescription for Zofran that she can use if needed Medication Reconcilliation Current Medication List: was personally reviewed by me Blood Pressure Screening Patient's blood pressure: Elevated blood pressure Blood pressure disposition: Referred to PCP Impression Primary Impression: Nausea Additional Impression: Weakness Scribe Attestation The scribe's documentation has been prepared under my direction and personally reviewed by me in its entirety. I confirm that the note above accurately reflects all work, treatment, procedures, and medical decision making performed by me. Departure Information Dispostion Home / Self-Care Prescriptions Ondasetron Odt (ZOFRAN ODT) 4 Mg Tab 4 MG SL Q6H for Nausea, #10 TAB Prov: Lance Herrera M.D. 03/11/17 Referrals Demetris Garcia M.D. (PCP) Forms HOME CARE DOCUMENTATION FORM, IMPORTANT VISIT INFORMATION, WORK / SCHOOL INSTRUCTIONS Patient Instructions My [facility] Additional Instructions Rest. Drink plenty of fluids. Mild diet. For nausea, May use Zofran 4 mg every 6 hours if needed Follow-up with Dr. Garcia on Tuesday for recheck Return to the ER over the weekend if: Worsening of symptoms, chest pain, shortness of breath, fever or chills, abdominal pain, any new problems or concerns. Problem Qualifiers
[2017-03-11 16:52] LABS: CALCIUM 9.5 mg/dl (8.5-10.1); CREATININE 1.14 mg/dl (0.60-1.20); POTASSIUM 3.8 mmol/L (3.5-5.1)
[2017-03-11] MEDS ORDERED: MULT-190 PO (17:02)
[2017-03-11] MEDS ORDERED: SERT-234 PO (17:02)
[2017-03-11] MEDS ORDERED: SIMV20TA2 PO (17:02)
[2017-03-11 17:24] LABS: ALBUMIN 3.6 gm/dl (3.4-5.0); ALKALINE PHOSPHATASE 118 U/L (45-117); ALT/SGPT 18 U/L (12-78); AST/SGOT 17 U/L (15-37); LIPASE 177 U/L (73-393); TOTAL PROTEIN 8.5 gm/dl (6.4-8.2)
--- NOTE | 2017-03-11 17:24 | DIAGNOSTIC IMAGING REPORT ---
CT SCAN OF THE BRAIN WITHOUT IV CONTRAST CLINICAL HISTORY: Generalized weakness. Dizziness. COMPARISON STUDY: CT of the brain dated 05/06/2013. TECHNIQUE: Unenhanced axial CT scan of the brain is performed from the vertex to the skull base. A dose lowering technique was utilized adhering to the principles of ALARA. CT DOSE: 1178.55 mGy.cm FINDINGS: Brain parenchyma: There are age-related involutional changes noting mild subcortical and periventricular microangiopathic change. There is no hemorrhage, mass effect, or evidence of acute territorial ischemia by CT criteria. Martin-white matter is preserved. No extra-axial fluid collection is seen. Ventricles, sulci, cisterns: Prominent secondary to involutional change. Intracranial vasculature: There is atherosclerotic calcification of the cavernous carotid and vertebral arteries. Calvarium: Unremarkable. Sinuses and mastoids: Because of thickening is noted within the left sphenoid sinus. The remaining visualized paranasal sinuses are clear. The mastoid air cells are well pneumatized. Orbits: The bony orbits are grossly intact. There are bilateral ocular lens implants. IMPRESSION: There is no hemorrhage, mass effect, or evidence of acute territorial ischemia by CT criteria. Electronically signed by: Georges Hodge M.D. 03/11/2017 5:23 PM Dictated Date/Time: 03/11/2017 5:19 PM
[2017-03-11] MEDS ORDERED: ONDANSETRON INJ 2 MG/ML 2 ML VIAL IV STA (17:31)
--- NOTE | 2017-03-11 17:34 | DIAGNOSTIC IMAGING REPORT ---
CT SCAN OF THE ABDOMEN AND PELVIS WITH IV CONTRAST CLINICAL HISTORY: Lower abdominal pain. Nausea. COMPARISON STUDY: Abdominal CT dated 03/05/2016. TECHNIQUE: Following the IV administration of 95 cc of Optiray 320, CT scan of the abdomen and pelvis is performed from the lung bases to the proximal femora. Images are reviewed in the axial, sagittal, and coronal planes. IV contrast was administered without complication. A dose lowering technique was utilized adhering to the principles of ALARA. The examination is degraded by motion artifact. The examination is also degraded by streak artifact from extensive spinal orthopedic hardware. FINDINGS: Lung bases: The heart is enlarged and without pericardial effusion. The coronary arteries and mitral annulus are densely calcified. The lung bases are clear noting dependent atelectasis. Liver: The contrast-enhanced liver is normal in size, contour, and attenuation. 5. Infiltration is seen adjacent to falciform ligament. There is minimal central intrahepatic biliary ductal dilatation. The hepatic veins and portal veins are patent. Gallbladder: Unremarkable. Spleen: Normal in size and attenuation. Pancreas: Atrophic and grossly unremarkable. Adrenal glands: Unremarkable. Kidneys: The contrast enhanced kidneys are atrophic and without hydronephrosis. The kidneys enhance symmetrically. Abdominal vasculature: There is advanced atherosclerotic calcification and ectasia of the abdominal aorta. An infrarenal abdominal aneurysm measures 3.8 cm in AP diameter and 3.9 cm in transverse diameter. 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 There is ectasia of the right common iliac artery which measures up to 1.7 cm. Bowel: There is moderate sigmoid diverticulosis without CT evidence of acute diverticulitis. Liquid stool is noted in the right colon. No bowel obstruction is seen. The appendix is not identified. Peritoneum: There is no intraperitoneal free air or abdominal ascites. Lymphadenopathy: None. Pelvic viscera: Evaluation of the pelvis is degraded by streak artifact from a right hip arthroplasty. The bladder is decompressed and grossly unremarkable. The uterus is surgically absent. No adnexal lesion is seen. Skeletal structures: The skeletal structures are osteopenic. No lytic or blastic lesions are seen. Lumbar sacral spondylosis is noted. There are postoperative changes from L1 to L5 spinal fusion. Interpedicular screws are present at all levels. There is lucency around the interpedicular screws in the body of L1. This suggests loosening. Soft tissue thickening possibly representing anterior disc herniation is seen at L1-L2. This is unchanged from previous. A right hip arthroplasty is in place. Bursal fluid is noted around the right hip arthroplasty. IMPRESSION: 1. Liquid stool is noted in the right colon. Correlate clinically for evidence of a diarrheal illness. There is no colonic wall thickening or pericolonic inflammation. 2. Moderate sigmoid diverticulosis without CT evidence of acute diverticulitis. 3. Unchanged appearance of a 3.8 x 3.9 cm infrarenal abdominal aortic aneurysm as compared to previous. 4. Cardiomegaly. 5. There is lucency around the intervertebral screws at L1 suggesting loosening. 6. Nonspecific soft tissue thickening anterior to L1-L2 is unchanged and may represent anterior disc herniation. There is no surrounding inflammation. 7. Additional findings as above. Electronically signed by: Georges Hodge M.D. 03/11/2017 5:32 PM Dictated Date/Time: 03/11/2017 5:23 PM
--- NOTE | 2017-03-11 17:37 | DIAGNOSTIC IMAGING REPORT ---
SINGLE VIEW CHEST CLINICAL HISTORY: Atypical chest pain. FINDINGS: An AP, portable, upright chest radiograph is compared to study dated 10/07/2013. The examination is degraded by portable technique and patient rotation. The heart is enlarged and there is atherosclerotic calcification of the thoracic aorta. The pulmonary vasculature is noncongested. Chronic interstitial thickening is similar to previous. There is mild bibasilar atelectasis. No airspace consolidation or large pleural effusion is seen. No pneumothorax is identified. The skeletal structures are osteopenic. The bony thorax is grossly intact. IMPRESSION: Cardiomegaly with no acute cardiopulmonary abnormality. Electronically signed by: Georges Hodge M.D. 03/11/2017 5:35 PM Dictated Date/Time: 03/11/2017 5:35 PM
[2017-03-11] MEDS ORDERED: MoRPHine SULFATE 2 MG/ML CARP IV STA (17:41)
[2017-03-11] MEDS ORDERED: ONDA4TAB10 SL (17:59)
[2017-03-11] MEDS ORDERED: ONDANSETRON HOME PACK 4MG OD TAB PO ONE (18:00)
[2017-03-11 18:09] VITALS: BP 141/73; PULSE 64; O2SAT 95
[2017-03-11] MEDS ORDERED: OMEP20CA9 PO (20:53)
[2017-03-11] MEDS ORDERED: ASPI81TA28 PO (20:53)
[2017-03-11] MEDS ORDERED: BUPR-267 PO (20:53)
== END 2017-03-11 18:10 | disposition home or self-care (01) ==
LOC: EDBD 15:11 → C.EDC 15:12
DX: R11.0 Nausea (principal); R53.1 Weakness; R51 Headache; R53.83 Other fatigue; R42 Dizziness and giddiness; F32.9 Major depressive disorder, single episode, unspecified; I10 Essential (primary) hypertension; E78.5 Hyperlipidemia, unspecified; Z79.82 Long term (current) use of aspirin; Z87.891 Personal history of nicotine dependence; Z82.49 Family history of ischemic heart disease and other diseases of the circulatory system

== ENCOUNTER 2018-11-24 10:17 | Inpatient (IN) ==
[2018-11-24] MEDS ORDERED: ACETAMINOPHEN 1,000 MG/100 ML VIAL IV STA (11:45)
[2018-11-24] MEDS ORDERED: SODIUM CHLORIDE 0.9% 1000ML 1,000 ML IV SCH (12:00)
[2018-11-24] MEDS: MoRPHine SULFATE 2 MG/ML CARP IV PRN ×6 (12:23→23:38)
[2018-11-24 12:26] LABS: Basophils # (auto) 0.05 K/uL (0-0.2); Basophils % (auto) 0.6 %; Eosinophils # (auto) 0.15 K/uL (0-0.5); Eosinophils % (auto) 1.9 %; Hematocrit (blood only) 35.9 % (37-47); Hemoglobin 11.5 g/dL (12.0-16.0); Immature Granulocytes # (auto) 0.02 K/uL (0.00-0.02); Immature Granulocytes % (auto) 0.2 %; Lymphocytes % (auto) 18.7 %; Mean Corpuscular Hemoglobin 28.8 pg (25-34); Mean Corpuscular Volume 89.8 fL (80-100); Monocytes # (auto) 0.55 K/uL (0.11-0.59); Monocytes % (auto) 6.8 %; Neutrophils # (auto) 5.76 K/uL (1.4-6.5); Neutrophils % (auto) 71.8 %; Platelet Count 242 K/uL (130-400); RDW Coefficient of Variation 14.3 % (11.5-14.5); RDW Standard Deviation 47.2 fL (36.4-46.3); White Blood Count 8.03 K/uL (4.8-10.8)
[2018-11-24 12:39] LABS: INR 1.1 (0.9-1.1); Prothrombin Time 10.9 Seconds (9.0-12.0)
[2018-11-24 12:43] LABS: Albumin Level 3.3 gm/dl (3.4-5.0); BUN Creatinine Ratio 14.2 (10-20); Calcium 8.9 mg/dl (8.5-10.1); Creatinine Clr Calc Pharmacy 34.8 ml/min; Est GFR (African American) 50.2; Est GFR (Non-African American) 43.4; Potassium 4.3 mmol/L (3.5-5.1)
[2018-11-24 12:45] LABS: Albumin Globulin Ratio 0.7 (0.9-2); Bilirubin,Total 0.7 mg/dl (0.2-1); Globulin 4.5 gm/dl (2.5-4.0); Total Protein 7.8 gm/dl (6.4-8.2)
--- NOTE | 2018-11-24 13:20 | XRay Report ---
XR femur LT 2V routine HISTORY: 87 years-old Female fall acute left femur pain status post fall COMPARISON: Pelvis and left hip radiographs of same day TECHNIQUE: 2 views of the left femur FINDINGS: There is an acute comminuted impacted and mildly angulated intratrochanteric fracture of the left fem ur. Fracture fragments are displaced medially several millimeters. Moderate adjacent soft tissue swel ling. Moderate left hip osteoarthritis. Demineralized appearance of the bones. Peripheral arterial ca lcifications are noted. Degenerative changes are also noted about the knee. IMPRESSION: Acute comminuted, mildly impacted and angulated intratrochanteric fracture of the left fe mur. The above report was generated using voice recognition software. It may contain grammatical, syntax o r spelling errors. Electronically signed by: Kenneth Young M.D. 11/24/2018 1:19 PM
--- NOTE | 2018-11-24 13:20 | XRay Report ---
XR hip LT 2V w pelvis CLINICAL HISTORY: fall COMPARISON: CT of the abdomen and pelvis March 11, 2017. FINDINGS: Arthroplasty is noted as well as multilevel lumbar spine fusion. The sacroiliac joints and symphysis pubis are intact. There is a comminuted displaced and angulated intertrochanteric fracture of the left femur. IMPRESSION: Comminuted displaced and angulated intertrochanteric fracture of the left femur. Electronically signed by: Neymar Crum M.D. 11/24/2018 1:19 PM
--- NOTE | 2018-11-24 13:21 | XRay Report ---
XR chest 1V portable CLINICAL HISTORY: fall trauma COMPARISON STUDY: 03/11/2017 FINDINGS: Moderate stable cardiomegaly. Lungs are considered clear. Overlapping densities right lung base. No focal infiltrate. Minimal atelectasis right base. IMPRESSION: 1. Moderate stable cardiomegaly. 2. Atelectasis right base. The above report was generated using voice recognition software. It may contain grammatical, syntax or spelling errors. Electronically signed by: Ronnell Marvin M.D. 11/24/2018 1:20 PM
--- NOTE | 2018-11-24 13:52 | Emergency Department Note ---
ED Visit Note This patient was seen in concert with Dr. Wells and we discussed and agreed upon the history, physical, assessment, and plan. See attending's note for details. . Resident Activity Tracking Resident Involvement: Resident Care Provided Care Provided: Adult ED
[2018-11-24 14:39] LABS: Appearance Urine Clear (Clear); Bilirubin Urine Negative (Negative); Blood Urine Negative (Negative); Color Urine Yellow; Glucose Urine UA Negative (Negative); Ketones Urine Negative (Negative); Leukocyte Esterase Urine Negative (Negative); Nitrite Urine Negative (Negative); Protein Urine Negative (Negative); Urobilinogen Urine Negative (Negative)
--- NOTE | 2018-11-24 15:07 | History & Physical Report ---
Date of Service November 24, 2018 Assessment & Plan (1) Vitamin D deficiency: (2) Internal carotid artery stenosis: (3) History of hip replacement, total: (4) Esophageal reflux: (5) Chronic obstructive pulmonary disease: (6) Aneurysm of infrarenal abdominal aorta: (7) HTN (hypertension): (8) Hyperlipidemia: (9) Fall: (10) Depression: (11) Intertrochanteric fracture of left femur: 87-year-old female with history of hypertension, hyperlipidemia, aneurysm infrarenal abdominal aorta, peripheral artery disease, ICA stenosis,, COPD, depression, GERD, osteoarthritis, chronic back pain status post spinal fusion surgery in 2013, right hip replacement presents status post fall with left thigh pain. Left intertrochanteric femur fracture status post fall Left femur x-ray: Acute comminuted mildly impacted and angulated intertrochanteric left femur fracture Morphine 2 mg every 3 hours as needed in addition to home tramadol 3 times daily scheduled Ortho consulted: Dr. Figueroa, of note patient does not want to be seen by Dr. Corley Hypertension/peripheral artery disease/ICA stenosis/aneurysm and for renal abdominal aorta Patient denies any history of VA, CHF, CVAno history noted also on chart review Continue home metoprolol, simvastatin and aspirin Per patient monitoring abdominal aortic aneurysm History of COPD No home inhalers noted Dropped to 88% on room air and now on 2 L O2, no home O2 reported GERD Continue home omeprazole Chronic back pain status post spinal fusion surgery in 2013 Chronic right hip pain with occasional abscess development at site of hip replacement Continue home gabapentin and tramadol 50 mg 3 times daily scheduled Depression Continue home Wellbutrin and Zoloft FEN/GI: On IV fluids while n.p.o. for possible procedure DVT prophylaxis: Chemical contraindicated for possible surgery Code: Full per discussion with patient and daughter Dispo: MedSurg History of Present Illness Chief Complaint: L thigh pain s/p Fall Primary Care Provider: Demetris Garcia MD 87-year-old female with history of hypertension, hyperlipidemia, aneurysm infrarenal abdominal aorta, peripheral artery disease, ICA stenosis,, COPD, depression, GERD, osteoarthritis, chronic back pain status post spinal fusion surgery in 2013, right hip replacement presents status post fall with left thigh pain. Patient reports getting up quickly this morning to go to the bathroom without using walker and fell to the floor. Patient had immediate severe left thigh pain and could not move or get up. Daughter called ambulance and she was brought to the emergency department. Otherwise denies any headache, lightheadedness, chest pain, shortness of breath, fever, chills, abdominal pain, nausea, vomiting, diarrhea, constipation, dysuria. ED: Found to have acute comminuted mildly impacted and angulated intertrochanteric fracture of left femur. Given normal saline 150 cc/h and morphine 2 mg IV and Tylenol 1 g IV. ED resident contacted Dr. Figueroa and spoke to his nurse. Of note: Patient does not want to be seen by Dr. Corley Social history: Smoked cigarettes for 30 years 1 to 1.5 pack/day. Allergies Allergy/AdvReac Type Severity Reaction Status Date / Time Cephalosporins Allergy Unknown HIVES/RASH Verified 11/24/18 10:56 cephalexin [From Keflex] Allergy Unknown Verified 11/24/18 10:56 celecoxib AdvReac Unknown upset Verified 11/24/18 10:56 stomach venlafaxine AdvReac Unknown GI UPSET Verified 11/24/18 10:56 Home Medications Home Medications Medication Instructions Recorded Confirmed Type cholecalciferol (vitamin D3) 5,000 5,000 unit PO PM cap 07/18/18 11/24/18 History unit capsule omeprazole 20 mg capsule,delayed 20 mg PO QAM #90 cap 07/18/18 11/24/18 History release sertraline 100 mg tablet 150 mg PO QAM #135 tab 07/18/18 11/24/18 History simvastatin 20 mg tablet 20 mg PO PM #90 tab 07/18/18 11/24/18 History aspirin [Aspir-81] 81 mg PO HS 08/04/18 11/24/18 History acetaminophen [Tylenol] 325 mg PO TID 08/07/18 11/24/18 History gabapentin 400 mg PO TID 08/07/18 11/24/18 History vit C-E-zinc xoc-kniwml-ijokvg 2 tab PO PM 08/07/18 11/24/18 History [[facility]] bupropion HCl SR 150 mg tablet,12 150 mg PO QAM #90 ea 09/04/18 11/24/18 Rx hr sustained-release calcium 2 tab PO DAILY tab 09/07/18 11/24/18 History ujj-msh-Q7-Qk-frxvgi-Di-boron 250 mg-40 mg-125 unit tablet tramadol 50 mg tablet 50 mg PO TID #90 tab 10/05/18 11/24/18 Rx metoprolol succinate ER 25 mg 25 mg PO DAILY #90 tab 11/09/18 11/24/18 Rx tablet,extended release 24 hr tramadol 50 mg PO QID PRN #14 tab 11/15/18 11/24/18 Rx Past Med/Surg History Medical History Vitamin D deficiency (Acute) 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) Solitary thyroid nodule (Acute) Macular degeneration (Acute) Internal carotid artery stenosis (Acute) Esophageal reflux (Acute) Decreased hearing (Acute) Collagenous colitis (Acute) Chronic right hip pain (Acute) Chronic pain syndrome (Acute) Chronic osteoarthritis (Acute) Chronic obstructive pulmonary disease (Acute) Chronic constipation (Acute) Aneurysm of infrarenal abdominal aorta (Acute) Abnormal CT scan, lumbar spine (Acute) Surgical History History of hip replacement, total (Resolved) Family History Mother Acute myocardial infarction Father Stroke syndrome Hypertension Brother Lung cancer Acute myocardial infarction Sister Carcinoma of pancreas Social History Preferred Language: Polish Feels Safe at Home: Yes Smoking Status: Former smoker caffeine: Yes Seatbelt Use: always Review of Systems Review of Systems: As per HPI Physical Exam Physical Exam: General: In NAD HEENT: dry mucous membranes Neuro: A&O x 4 Pulm: CTAB equal breath sounds bilaterally CV: RRR, no m/r/g Abdomen:+BS, no TTP in all quadrants, non-distended Left LE: Pain on moving LLE, 2+ DP pulse, no LE edema, no skin changes Results & Data Vital Signs (Past 12 Hours) Vital Signs Temp Pulse Pulse Resp BP BP Pulse Ox 11/24/18 13:32 68 18 165/84 H 98 11/24/18 12:31 76 15 184/110 H 96 11/24/18 12:19 69 19 175/90 H 11/24/18 12:18 70 18 191/89 H 11/24/18 12:00 65 20 95 11/24/18 11:00 63 18 96 11/24/18 10:25 69 21 90 11/24/18 10:22 67 23 191/89 H 90 11/24/18 10:17 36.8 C 66 16 191/89 H 91 Laboratory Results Abnormal lab results 11/24/18 11/24/18 Range/Units 12:15 12:15 RBC 4.00 L (4.2-5.4) M/uL Hgb 11.5 L (12.0-16.0) g/dL Hct 35.9 L (37-47) % RDW Std Deviation 47.2 H (36.4-46.3) fL Albumin 3.3 L (3.4-5.0) gm/dl Globulin 4.5 H (2.5-4.0) gm/dl Albumin/Globulin Ratio 0.7 L (0.9-2) Diagnostic Findings XR femur LT 2V routine HISTORY: 87 years-old Female fall acute left femur pain status post fall COMPARISON: Pelvis and left hip radiographs of same day TECHNIQUE: 2 views of the left femur FINDINGS: There is an acute comminuted impacted and mildly angulated intratrochanteric fracture of the left femur. Fracture fragments are displaced medially several millimeters. Moderate adjacent soft tissue swelling. Moderate left hip osteoarthritis. Demineralized appearance of the bones. Peripheral arterial calcifications are noted. Degenerative changes are also noted about the knee. IMPRESSION: Acute comminuted, mildly impacted and angulated intratrochanteric fracture of the left femur. Code Status & VTE Plan Code Status Full per discussion with patient and daughter VTE Prophylaxis Plan VTE Prophylaxis will be ordered: Yes Supervising Physician Co-Signing Physician Notes Patient seen and examined with Dr. Whitmore. I agree with their exam findings, review of systems, assessment and plan. I have personally reviewed the lab work and imaging from today. patient resting comfortably in bed. she had a dose of Morphine 2mg but the effects are wearing off, not due for more pain medications, discussed I would adjust it no chest pain or dyspnea, no fever chills, no abdominal pain/nausea updated family at the bedside, plan for IM nailing tomorrow with Dr. Figueroa Exam: elderly female in NAD, WD WN, lungs CTA bilaterally, S1 S2 regular, no murmurs, abdomen soft, NT, ND left hip tender, cannot move it due to pain - Left femoral neck fracture: NPO after midnight, plan for IM nailing tomorrow pain control with Morphine PRN - HTN: BP stable, take Metoprolol in the AM - H/o AAA: stable - Peipheral artery disease: antiplatelets - COPD: no wheezing, no distress PG Care Time/CCT Total # of Minutes Spent Total Time Spent with Patient: Total time spent is greater than 50% in coordination of care (as documented) at patient's floor/unit and/or counseling patient: Resident Activity Tracking Resident Involvement: Resident Care Provided Care Provided: Adult Hospital Medicine
[2018-11-24] MEDS ORDERED: VANCOMYCIN CONSULT ACTIVE PRN (15:39)
--- NOTE | 2018-11-24 15:54 | Emergency Department Note ---
Entered by Sd Worley acting as a scribe for Javed Wells MD History of Present Illness General Chief complaint: Fall Stated complaint: Left Upper Leg Pain Time Seen by Provider: 11/24/18 11:12 Source: patient Limitations: no limitations History of Present Illness Onset (ago): hour(s) 4 Location: upper extremity (left wrist, left forearm ) and lower extremity (left leg) Maximum Pain Intensity: 2 Current Pain Intensity: 10 Associated symptoms: + denies other symptoms (loss of consciousness, dizziness) Treatments prior to arrival: other (use of walker) The patient is a 87 year old female who presents to the Emergency Room with complaints of a fall that happened four hours prior to arrival. The patient notes that she fell when she was transferring from one chair to the next. The patient states that she hit her left leg and left forearm. The patient reports a 2/10 pain without movement, and a 10/10 pain with movement. The patient notes that she uses a walker at home and was not using the walker during this incident. The patient denies any loss of consciousness or dizziness. The patient reports that she was last seen in the ED for hip pain two months ago. The patient denies taking any pain medication. Home Medications Home Medications Medication Instructions Recorded Confirmed Type cholecalciferol (vitamin D3) 5,000 5,000 unit PO PM cap 07/18/18 11/24/18 History unit capsule omeprazole 20 mg capsule,delayed 20 mg PO QAM #90 cap 07/18/18 11/24/18 History release sertraline 100 mg tablet 150 mg PO QAM #135 tab 07/18/18 11/24/18 History simvastatin 20 mg tablet 20 mg PO PM #90 tab 07/18/18 11/24/18 History aspirin [Aspir-81] 81 mg PO HS 08/04/18 11/24/18 History acetaminophen [Tylenol] 325 mg PO TID 08/07/18 11/24/18 History gabapentin 400 mg PO TID 08/07/18 11/24/18 History vit C-E-zinc czx-dyqzkv-marcdd 2 tab PO PM 08/07/18 11/24/18 History [[facility]] bupropion HCl SR 150 mg tablet,12 150 mg PO QAM #90 ea 09/04/18 11/24/18 Rx hr sustained-release calcium 2 tab PO DAILY tab 09/07/18 11/24/18 History idw-eif-M7-Zr-xnrnwq-Rr-boron 250 mg-40 mg-125 unit tablet tramadol 50 mg tablet 50 mg PO TID #90 tab 10/05/18 11/24/18 Rx metoprolol succinate ER 25 mg 25 mg PO DAILY #90 tab 11/09/18 11/24/18 Rx tablet,extended release 24 hr tramadol 50 mg PO QID PRN #14 tab 11/15/18 11/24/18 Rx Allergies Allergy/AdvReac Type Severity Reaction Status Date / Time Cephalosporins Allergy Unknown HIVES/RASH Verified 11/24/18 10:56 cephalexin [From Keflex] Allergy Unknown Verified 11/24/18 10:56 celecoxib AdvReac Unknown upset Verified 11/24/18 10:56 stomach venlafaxine AdvReac Unknown GI UPSET Verified 11/24/18 10:56 Past Med/Surg History Medical History Vitamin D deficiency (Acute) 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) Solitary thyroid nodule (Acute) Macular degeneration (Acute) Internal carotid artery stenosis (Acute) Esophageal reflux (Acute) Decreased hearing (Acute) Collagenous colitis (Acute) Chronic right hip pain (Acute) Chronic pain syndrome (Acute) Chronic osteoarthritis (Acute) Chronic obstructive pulmonary disease (Acute) Chronic constipation (Acute) Aneurysm of infrarenal abdominal aorta (Acute) Abnormal CT scan, lumbar spine (Acute) Surgical History History of hip replacement, total (Resolved) Family History Mother Acute myocardial infarction Father Stroke syndrome Hypertension Brother Lung cancer Acute myocardial infarction Sister Carcinoma of pancreas Social History Preferred Language: Danish Communication Ability Comment: Patient is hard of hearing Lens Coater Required: No Beliefs That Will Affect Care: None Current Living Situation: Alone Other Information That Helps Us Care for You: No Feels Safe at Home: Yes Safety Concerns: Feels Safe At This Time Smoking Status: Former smoker Second Hand Exposure: No ; Hx Alcohol Use: No Hx Substance Use: No caffeine: Yes Seatbelt Use: always Review of Systems See HPI for pertinent positives & negatives. and A total of 10 systems reviewed and were otherwise negative Physical Exam Vital Signs Vital Signs - 24 hr 11/24/18 10:17 11/24/18 10:22 11/24/18 10:25 Temperature 36.8 C Temperature Source Oral Sepsis Recent Fever Within 48 Hours No Sepsis New/Unexplained Change in Mental Status No Sepsis Action Taken by Nursing No Action Required Oxygen Flow Rate - Titration Pulse Oximetry Post Tiitration Pulse Rate 66 67 69 Pulse Rate [Apical] Pulse Rate from SpO2 Sensor 67 68 Pulse Rhythm Regular Respiratory Rate 16 23 21 Respiratory Effort / Characteristics Non-Labored Respiratory Depth Normal Respiratory Pattern Regular Blood Pressure 191/89 H 191/89 H Blood Pressure [Left Arm] Blood Pressure Mean 123 123 Blood Pressure Mean [Left Arm] Blood Pressure Position Sitting Blood Pressure Position [Left Arm] Pulse Oximetry 91 90 90 Oxygen Delivery Method Room Air Oxygen Flow Rate 11/24/18 11:00 11/24/18 12:00 11/24/18 12:15 Temperature Temperature Source Sepsis Recent Fever Within 48 Hours Sepsis New/Unexplained Change in Mental Status Sepsis Action Taken by Nursing Oxygen Flow Rate - Titration 2 Pulse Oximetry Post Tiitration 97 Pulse Rate 63 65 Pulse Rate [Apical] Pulse Rate from SpO2 Sensor 65 65 Pulse Rhythm Respiratory Rate 18 20 Respiratory Effort / Characteristics Respiratory Depth Respiratory Pattern Blood Pressure Blood Pressure [Left Arm] Blood Pressure Mean Blood Pressure Mean [Left Arm] Blood Pressure Position Blood Pressure Position [Left Arm] Pulse Oximetry 96 95 Oxygen Delivery Method Room Air Oxygen Flow Rate 11/24/18 12:18 11/24/18 12:19 11/24/18 12:30 Temperature Temperature Source Sepsis Recent Fever Within 48 Hours Sepsis New/Unexplained Change in Mental Status Sepsis Action Taken by Nursing Oxygen Flow Rate - Titration Pulse Oximetry Post Tiitration Pulse Rate 70 69 70 Pulse Rate [Apical] Pulse Rate from SpO2 Sensor 74 Pulse Rhythm Respiratory Rate 18 19 15 Respiratory Effort / Characteristics Respiratory Depth Respiratory Pattern Blood Pressure 191/89 H 175/90 H Blood Pressure [Left Arm] Blood Pressure Mean 123 118 Blood Pressure Mean [Left Arm] Blood Pressure Position Blood Pressure Position [Left Arm] Pulse Oximetry 90 Oxygen Delivery Method Oxygen Flow Rate 11/24/18 12:31 11/24/18 13:14 11/24/18 13:15 Temperature Temperature Source Sepsis Recent Fever Within 48 Hours Sepsis New/Unexplained Change in Mental Status Sepsis Action Taken by Nursing Oxygen Flow Rate - Titration Pulse Oximetry Post Tiitration Pulse Rate 76 67 67 Pulse Rate [Apical] Pulse Rate from SpO2 Sensor 75 64 Pulse Rhythm Respiratory Rate 15 14 16 Respiratory Effort / Characteristics Respiratory Depth Respiratory Pattern Blood Pressure 184/110 H 167/81 H Blood Pressure [Left Arm] Blood Pressure Mean 134 109 Blood Pressure Mean [Left Arm] Blood Pressure Position Blood Pressure Position [Left Arm] Pulse Oximetry 96 90 Oxygen Delivery Method Oxygen Flow Rate 0 11/24/18 13:30 11/24/18 13:32 11/24/18 14:00 Temperature Temperature Source Sepsis Recent Fever Within 48 Hours Sepsis New/Unexplained Change in Mental Status Sepsis Action Taken by Nursing Oxygen Flow Rate - Titration Pulse Oximetry Post Tiitration Pulse Rate 69 69 Pulse Rate [Apical] 68 Pulse Rate from SpO2 Sensor 70 67 Pulse Rhythm Respiratory Rate 17 18 22 Respiratory Effort / Characteristics Non-Labored Respiratory Depth Normal Respiratory Pattern Regular Blood Pressure 165/84 H 114/62 Blood Pressure [Left Arm] 165/84 H Blood Pressure Mean 111 79 Blood Pressure Mean [Left Arm] 111 Blood Pressure Position Blood Pressure Position [Left Arm] Lying Pulse Oximetry 98 98 96 Oxygen Delivery Method Room Air Oxygen Flow Rate 2 2 11/24/18 14:30 Temperature Temperature Source Sepsis Recent Fever Within 48 Hours Sepsis New/Unexplained Change in Mental Status Sepsis Action Taken by Nursing Oxygen Flow Rate - Titration Pulse Oximetry Post Tiitration Pulse Rate 75 Pulse Rate [Apical] Pulse Rate from SpO2 Sensor 76 Pulse Rhythm Respiratory Rate 14 Respiratory Effort / Characteristics Respiratory Depth Respiratory Pattern Blood Pressure 142/72 H Blood Pressure [Left Arm] Blood Pressure Mean 95 Blood Pressure Mean [Left Arm] Blood Pressure Position Blood Pressure Position [Left Arm] Pulse Oximetry 95 Oxygen Delivery Method Oxygen Flow Rate 2 GENERAL: Awake, alert, uncomfortable-appearing, in no distress HENT: Normocephalic, atraumatic. Oropharynx with dry mucous membranes and otherwise unremarkable. EYES: Normal conjunctiva. Sclera non-icteric. EOMI. No nystamgus. PEARRL. NECK: Supple. No nuchal rigidity. FROM. No JVD. RESPIRATORY: CTAB. CARDIAC: Regular rate, normal rhythm. Extremities warm and well perfused. Pulses equal. ABDOMEN: Soft, non-distended. No tenderness to palpation. No rebound or guarding. No masses. RECTAL: Deferred. MUSCULOSKELETAL: Chest examination reveals no tenderness. The back is symmetrical on inspection without obvious abnormality. There is no CVA tenderness to palpation. Moderate ttp of left inguinal region and mid-thigh with ROM at the hip limited 2/2 pain. Distal PMS intact. LOWER EXTREMITIES: Calves are equal size bilaterally and non-tender. No edema. No discoloration. NEURO: Normal sensorium. No sensory or motor deficits noted. SKIN: No rash or jaundice noted. Course 1115: The patient was evaluated in room B11A. A complete history and physical exam was performed. Administered Medications Aspirin (Ecotrin Ectab) 81 mg PO HS PATRIA Stop: 12/24/18 20:59 Last Admin: 11/24/18 20:08 Dose: 81 mg Documented by: [id number] Gabapentin (Neurontin) 400 mg PO TID PATRIA Stop: 12/24/18 20:59 Last Admin: 11/24/18 20:10 Dose: 400 mg Documented by: [id number] Lactated Ringer's (Lr) 1,000 mls @ 80 mls/hr IV .[id number] PATRIA Stop: 12/24/18 16:24 Last Admin: 11/24/18 17:47 Dose: 80 mls/hr Documented by: [id number] Morphine Sulfate (Morphine Sulfate) 2 mg IV Q2H PRN PRN Reason: Pain Stop: 12/08/18 16:10 Last Admin: 11/24/18 23:38 Dose: 2 mg Documented by: [id number] Admin: 11/24/18 20:12 Dose: 2 mg Documented by: [id number] Admin: 11/24/18 17:52 Dose: 2 mg Documented by: [id number] Multivitamins/Minerals (Multivitamin W/ Minerals Tab) 1 tab PO PM PATRIA Stop: 12/24/18 20:59 Last Admin: 11/24/18 20:09 Dose: 1 tab Documented by: [id number] Simvastatin (Zocor) 20 mg PO PM PATRIA Stop: 12/24/18 20:59 Last Admin: 11/24/18 20:10 Dose: 20 mg Documented by: [id number] Vitamin D (Vitamin D3) 5,000 units PO PM PATRIA Stop: 12/24/18 20:59 Last Admin: 11/24/18 20:10 Dose: 5,000 units Documented by: [id number] Discontinued Medications Acetaminophen (Ofirmev) 1,000 mg in 100 mls @ 400 mls/hr IV NOW STA Stop: 11/24/18 11:59 Last Infusion: 11/24/18 12:39 Dose: 0 mls/hr Documented by: [id number] Admin: 11/24/18 12:22 Dose: 400 mls/hr Documented by: [id number] Sodium Chloride (Nss 1000ml) 1,000 mls @ 150 mls/hr IV .[id number] PATRAI Stop: 11/24/18 18:39 Last Infusion: 11/24/18 17:35 Dose: 0 mls/hr Documented by: [id number] Admin: 11/24/18 12:23 Dose: 150 mls/hr Documented by: [id number] Morphine Sulfate (Morphine Sulfate) 2 mg IV Q1H PRN PRN Reason: Moderate Pain (Rating 3,4,5,6) Stop: 12/08/18 11:53 Last Admin: 11/24/18 15:52 Dose: 2 mg Documented by: [id number] Admin: 11/24/18 13:27 Dose: 2 mg Documented by: [id number] Admin: 11/24/18 12:23 Dose: 2 mg Documented by: [id number] Medical Decision Making Differential Diagnosis Differential diagnosis: Etiologies such as fracture, cervical/vertebral injury, dislocation, intra- abdominal process, pneumothorax, intrathoracic trauma, intracranial injury, soft tissue injury, neurologic process, as well as other traumatic pathologies were entertained. Medical Records Attestation: I reviewed the patient's medical records. Home Medications Current Medication List: was personally reviewed by me Laboratory Data Attestation: I reviewed the patient's lab results. Result diagrams: 11/24/18 12:15 11/24/18 12:15 Lab Results 11/24/18 11/24/18 11/24/18 Range/Units 12:15 12:15 12:15 WBC 8.03 (4.8-10.8) K/uL RBC 4.00 L (4.2-5.4) M/uL Hgb 11.5 L (12.0-16.0) g/dL Hct 35.9 L (37-47) % MCV 89.8 (80-100) fL MCH 28.8 (25-34) pg MCHC 32.0 (32-36) g/dL RDW Std Deviation 47.2 H (36.4-46.3) fL RDW Coeff of Martine 14.3 (11.5-14.5) % Plt Count 242 (130-400) K/uL MPV 9.0 (7.4-10.4) fL Immature Gran % (Auto) 0.2 % Neut % (Auto) 71.8 % Lymph % (Auto) 18.7 % [place] % (Auto) 6.8 % Eos % (Auto) 1.9 % Baso % (Auto) 0.6 % Immature Gran # (Auto) 0.02 (0.00-0.02) K/uL Neut # (Auto) 5.76 (1.4-6.5) K/uL Lymph # (Auto) 1.50 (1.2-3.4) K/uL [place] # (Auto) 0.55 (0.11-0.59) K/uL Eos # (Auto) 0.15 (0-0.5) K/uL Baso # (Auto) 0.05 (0-0.2) K/uL PT 10.9 (9.0-12.0) Seconds INR 1.1 (0.9-1.1) Sodium 140 (136-145) mmol/L Potassium 4.3 (3.5-5.1) mmol/L Chloride 106 (98-107) mmol/L Carbon Dioxide 31 (21-32) mmol/L Anion Gap 3.0 (3-11) BUN 16 (7-18) mg/dl Creatinine 1.15 (0.6-1.2) mg/dl Est Cr Clr Drug Dosing 34.8 ml/min Est GFR ( Amer) 50.2 Est GFR (Non-Af Amer) 43.4 BUN/Creatinine Ratio 14.2 (10-20) Glucose 96 (70-99) mg/dl Calcium 8.9 (8.5-10.1) mg/dl Total Bilirubin 0.7 (0.2-1) mg/dl AST 16 (15-37) U/L ALT 16 (12-78) U/L Alkaline Phosphatase 111 (45-117) U/L Total Protein 7.8 (6.4-8.2) gm/dl Albumin 3.3 L (3.4-5.0) gm/dl Globulin 4.5 H (2.5-4.0) gm/dl Albumin/Globulin Ratio 0.7 L (0.9-2) Urine Color Urine Appearance (Clear) Urine pH (4.5-7.5) Ur Specific Marshall (1.000-1.030) Urine Protein (Negative) Urine Glucose (UA) (Negative) Urine Ketones (Negative) Urine Blood (Negative) Urine Nitrite (Negative) Urine Bilirubin (Negative) Urine Urobilinogen (Negative) Ur Leukocyte Esterase (Negative) 11/24/18 Range/Units 13:40 WBC (4.8-10.8) K/uL RBC (4.2-5.4) M/uL Hgb (12.0-16.0) g/dL Hct (37-47) % MCV (80-100) fL MCH (25-34) pg MCHC (32-36) g/dL RDW Std Deviation (36.4-46.3) fL RDW Coeff of Martine (11.5-14.5) % Plt Count (130-400) K/uL MPV (7.4-10.4) fL Immature Gran % (Auto) % Neut % (Auto) % Lymph % (Auto) % [place] % (Auto) % Eos % (Auto) % Baso % (Auto) % Immature Gran # (Auto) (0.00-0.02) K/uL Neut # (Auto) (1.4-6.5) K/uL Lymph # (Auto) (1.2-3.4) K/uL [place] # (Auto) (0.11-0.59) K/uL Eos # (Auto) (0-0.5) K/uL Baso # (Auto) (0-0.2) K/uL PT (9.0-12.0) Seconds INR (0.9-1.1) Sodium (136-145) mmol/L Potassium (3.5-5.1) mmol/L Chloride (98-107) mmol/L Carbon Dioxide (21-32) mmol/L Anion Gap (3-11) BUN (7-18) mg/dl Creatinine (0.6-1.2) mg/dl Est Cr Clr Drug Dosing ml/min Est GFR ( Amer) Est GFR (Non-Af Amer) BUN/Creatinine Ratio (10-20) Glucose (70-99) mg/dl Calcium (8.5-10.1) mg/dl Total Bilirubin (0.2-1) mg/dl AST (15-37) U/L ALT (12-78) U/L Alkaline Phosphatase (45-117) U/L Total Protein (6.4-8.2) gm/dl Albumin (3.4-5.0) gm/dl Globulin (2.5-4.0) gm/dl Albumin/Globulin Ratio (0.9-2) Urine Color Yellow Urine Appearance Clear (Clear) Urine pH 5.0 (4.5-7.5) Ur Specific Marshall 1.020 (1.000-1.030) Urine Protein Negative (Negative) Urine Glucose (UA) Negative (Negative) Urine Ketones Negative (Negative) Urine Blood Negative (Negative) Urine Nitrite Negative (Negative) Urine Bilirubin Negative (Negative) Urine Urobilinogen Negative (Negative) Ur Leukocyte Esterase Negative (Negative) Imaging Data Radiologist's Impression: Radiology results as stated below per my review and the radiologist's interpretation: XR femur LT 2V routine HISTORY: 87 years-old Female fall acute left femur pain status post fall COMPARISON: Pelvis and left hip radiographs of same day TECHNIQUE: 2 views of the left femur FINDINGS: There is an acute comminuted impacted and mildly angulated intratrochanteric fracture of the left femur. Fracture fragments are displaced medially several millimeters. Moderate adjacent soft tissue swelling. Moderate left hip osteoarthritis. Demineralized appearance of the bones. Peripheral arterial calcifications are noted. Degenerative changes are also noted about the knee. IMPRESSION: Acute comminuted, mildly impacted and angulated intratrochanteric fracture of the left femur. The above report was generated using voice recognition software. It may contain grammatical, syntax or spelling errors. Electronically signed by: Kenneth Young M.D. 11/24/2018 1:19 PM XR hip LT 2V w pelvis CLINICAL HISTORY: fall COMPARISON: CT of the abdomen and pelvis March 11, 2017. FINDINGS: Arthroplasty is noted as well as multilevel lumbar spine fusion. The sacroiliac joints and symphysis pubis are intact. There is a comminuted displaced and angulated intertrochanteric fracture of the left femur. IMPRESSION: Comminuted displaced and angulated intertrochanteric fracture of the left femur. Electronically signed by: Neymar Crum M.D. 11/24/2018 1:19 PM XR chest 1V portable CLINICAL HISTORY: fall trauma COMPARISON STUDY: 03/11/2017 FINDINGS: Moderate stable cardiomegaly. Lungs are considered clear. Overlapping densities right lung base. No focal infiltrate. Minimal atelectasis right base. IMPRESSION: 1. Moderate stable cardiomegaly. 2. Atelectasis right base. The above report was generated using voice recognition software. It may contain grammatical, syntax or spelling errors. Electronically signed by: Ronnell Marvin M.D. 11/24/2018 1:20 PM Blood Pressure Blood Pressure Findings: Elevated blood pressure Blood Pressure Disposition: did not require urgent referral MDM Narrative The patient is a pleasant 87 y/o woman with a pmhx of COPD, HTN, HLD who presents to the emergency department with left hip pain after having a mechanical fall per HPI. On arrival the patient is uncomfortable but in NAD, AFVSS. On exam the patient exhibits moderate ttp of left inguinal region and mid-thigh with ROM at the hip limited 2/2 pain. Distal PMS intact. Head is atraumatic and patient is neurologically intact. EKG without evidence of acute ischemia. CXR with most likely right baslilar atelectasis. Plain films of pelvis, left hip and femur demonstrates comminuted displaced and angulated intertrochanteric fracture of the left femur. WBC and platelets wnl. H/H 11.5/35.9 similar to prior range of values. Chemistry without acidosis. Khadijah ctrolytes and LfTs unremarkable. UA negative for infection. Case was discussed by resident, Dr. Param Muhammad with Dr. James, [facility] hospitalist, who will evaluate the patient for admission. Dr. Muhammad also discussed case with orthopedics, Dr. Figueroa's staff who are aware of the patient. Impression & Plan Intertrochanteric fracture of left femur, Fall, History of total right hip arthroplasty, History of hypertension Discharge Plan Visit Data *Final* Discharge Date/Time: 11/24/18 15:45 Chief Complaint: Fall Stated Complaint: Left Upper Leg Pain ED Provider: Javed Wells ED Midlevel Provider: Param Muhammad Discharge Problem: Intertrochanteric fracture of left femur, Fall, History of total right hip arthroplasty, History of hypertension Patient Disposition: Admitted As Inpatient Discharge Instructions Interventions: ED Discharge Assessment Last Done: 11/24/18 15:45 The scribe's documentation has been prepared under my direction and personally reviewed by me in its entirety. I confirm that the note above accurately reflects all work, treatment, procedures, and medical decision making performed by me.
--- NOTE | 2018-11-24 15:59 | Orthopedic Consultation ---
Date of Consultation November 24, 2018 Assessment & Plan (1) Intertrochanteric fracture of left femur: She was seen also today by Dr. Figueroa in the emergency department. Her and her family were educated on this type fracture and treatment options. We did recommend surgical intervention specifically IM nailing of the left femur. Procedure was explained including risks benefits and alternatives to surgery and consent was obtained. She is been admitted to the hospitalist service service. She can eat today we will make her n.p.o. after midnight for planned surgery tomorrow morning. Teds and SCDs for DVT prophylaxis. We will order a type and screen today. She has allergies to cephalosporins so we will do vancomycin preoperatively. History of Present Illness Reason for Consultation: Left hip fracture History of Present Illness Elena is 87-year-old female who suffered a left hip fracture this morning when she was walking and bumped into a chair and fell. She was brought to the emergency department by ambulance x-rays were obtained she is found to have a displaced left intertrochanteric hip fracture. She denies any hip pain in the left hip prior to the fall. She does use a walker normally to ambulate. She is had a history of some spine surgery. Was actually in the emergency department about 9 days ago with back pain. She followed up with Dr. Corley for her back yesterday and was found to have 2 screws that apparently pulled out. She was scheduled for further imaging. She is also had a history of right hip replacement due to a fracture. She continues to have pain in the right hip and right leg. She apparently gets a fluid collection at times in the right hip and has this drained. She denies any history of infection after her hip or spine surgeries. Her complete past medical history were reviewed and please refer to the admission H&P for completeness. Allergies Allergy/AdvReac Type Severity Reaction Status Date / Time Cephalosporins Allergy Unknown HIVES/RASH Verified 11/24/18 10:56 cephalexin [From Keflex] Allergy Unknown Verified 11/24/18 10:56 celecoxib AdvReac Unknown upset Verified 11/24/18 10:56 stomach venlafaxine AdvReac Unknown GI UPSET Verified 11/24/18 10:56 Home Medications Home Medications Medication Instructions Recorded Confirmed Type cholecalciferol (vitamin D3) 5,000 5,000 unit PO PM cap 07/18/18 11/24/18 History unit capsule omeprazole 20 mg capsule,delayed 20 mg PO QAM #90 cap 07/18/18 11/24/18 History release sertraline 100 mg tablet 150 mg PO QAM #135 tab 07/18/18 11/24/18 History simvastatin 20 mg tablet 20 mg PO PM #90 tab 07/18/18 11/24/18 History aspirin [Aspir-81] 81 mg PO HS 08/04/18 11/24/18 History acetaminophen [Tylenol] 325 mg PO TID 08/07/18 11/24/18 History gabapentin 400 mg PO TID 08/07/18 11/24/18 History vit C-E-zinc ihu-ntjlps-nlynmh 2 tab PO PM 08/07/18 11/24/18 History [[facility]] bupropion HCl SR 150 mg tablet,12 150 mg PO QAM #90 ea 09/04/18 11/24/18 Rx hr sustained-release calcium 2 tab PO DAILY tab 09/07/18 11/24/18 History brb-khk-S7-Ud-mpjfez-Dd-boron 250 mg-40 mg-125 unit tablet tramadol 50 mg tablet 50 mg PO TID #90 tab 10/05/18 11/24/18 Rx metoprolol succinate ER 25 mg 25 mg PO DAILY #90 tab 11/09/18 11/24/18 Rx tablet,extended release 24 hr tramadol 50 mg PO QID PRN #14 tab 11/15/18 11/24/18 Rx Patient History Medical History Vitamin D deficiency (Acute) 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) Solitary thyroid nodule (Acute) Macular degeneration (Acute) Internal carotid artery stenosis (Acute) Esophageal reflux (Acute) Decreased hearing (Acute) Collagenous colitis (Acute) Chronic right hip pain (Acute) Chronic pain syndrome (Acute) Chronic osteoarthritis (Acute) Chronic obstructive pulmonary disease (Acute) Chronic constipation (Acute) Aneurysm of infrarenal abdominal aorta (Acute) Abnormal CT scan, lumbar spine (Acute) Surgical History History of hip replacement, total (Resolved) Family History Mother Acute myocardial infarction Father Stroke syndrome Hypertension Brother Lung cancer Acute myocardial infarction Sister Carcinoma of pancreas Social History Preferred Language: Occitan Feels Safe at Home: Yes Smoking Status: Former smoker caffeine: Yes Seatbelt Use: always Review of Systems Review of Systems: She denies any numbness or tingling. No other musculoskeletal complaints. Physical Exam Physical Exam: She is alert and oriented. Laying supine in the bed. She has no pain with range of motion of her upper extremities. She has a scar in her right hip from her previous hip replacement. There is an area of some slight swelling. No open areas. Examination of the left lower extremity she has some tenderness at the fracture site around her left hip. Some swelling of the left hip and thigh. No significant knee effusion at this time. She is able to dorsiflex plantarflex move her toes appropriately. She is neurovascular intact in the left leg. Results & Data Vital Signs (Past 12 Hours) Vital Signs Temp Pulse Pulse Resp BP BP Pulse Ox 11/24/18 15:30 73 15 137/73 11/24/18 15:00 73 18 127/72 95 11/24/18 14:30 75 14 142/72 H 95 11/24/18 14:00 69 22 114/62 96 11/24/18 13:32 68 18 165/84 H 98 11/24/18 13:30 69 17 165/84 H 98 11/24/18 13:15 67 16 167/81 H 90 11/24/18 13:14 67 14 11/24/18 12:31 76 15 184/110 H 96 11/24/18 12:30 70 15 90 11/24/18 12:19 69 19 175/90 H 11/24/18 12:18 70 18 191/89 H 11/24/18 12:00 65 20 95 11/24/18 11:00 63 18 96 11/24/18 10:25 69 21 90 11/24/18 10:22 67 23 191/89 H 90 11/24/18 10:17 36.8 C 66 16 191/89 H 91 Diagnostic Findings X-rays of her femur and pelvis showed previous right total hip replacement as well as the hardware in her lumbar spine. She has a displaced comminuted left intertrochanteric hip fracture PG Care Time/CCT Total # of Minutes Spent Total Time Spent with Patient: Total time spent is greater than 50% in coordination of care (as documented) at patient's floor/unit and/or counseling patient:
[2018-11-24] MEDS ORDERED: ONDANSETRON INJ 2 MG/ML 2 ML VIAL IV PRN (16:11)
[2018-11-24] MEDS ORDERED: POLYETHYLENE (MIRALAX) 17 GM PACK PO PRN (16:11)
[2018-11-24] MEDS ORDERED: MoRPHine SULFATE 2 MG/ML CARP IV PRN (16:11)
[2018-11-24] MEDS ORDERED: MoRPHine SULFATE 4 MG/ML 1 ML CARP\\VIAL IV PRN (16:58)
[2018-11-24] MEDS: LACTATED RINGER'S 1,000 ML IV SCH (17:47)
[2018-11-24] MEDS: CEROVITE ADV FORMULA TAB PO SCH (20:09)
[2018-11-24] MEDS: CHOLECALCIFEROL 1,000 UNITS TAB PO SCH (20:10)
[2018-11-24] MEDS: GABAPENTIN 400 MG CAP PO SCH (20:10)
[2018-11-24] MEDS: SIMVASTATIN 20 MG TAB PO SCH (20:10)
[2018-11-24] MEDS ORDERED: ASPIRIN 81 MG ECTAB PO SCH (21:00)
[2018-11-24] MEDS ORDERED: TRAMADOL HCL 50 MG TABLET PO SCH (21:00)
[2018-11-25] MEDS: MoRPHine SULFATE 2 MG/ML CARP IV PRN ×3 (05:11→22:38)
[2018-11-25] MEDS: LACTATED RINGER'S 1,000 ML IV SCH ×3 (05:11→17:14)
[2018-11-25] MEDS ORDERED: CLINDAMYCIN 600 MG/54 ML BAG IV SCH (06:00)
[2018-11-25] MEDS ORDERED: VANCOMYCIN HCL 1,000 MG/270 ML BAG IV SCH (06:00)
[2018-11-25] MEDS ORDERED: LIDOCAINE HCL 2% 2 ML VIAL/AMP(20MG/ML) INFIL ONE (06:55)
[2018-11-25] MEDS ORDERED: fentaNYL citrate 100 MCG/2 ML VIAL ONE (06:55)
[2018-11-25] MEDS ORDERED: ROCURONIUM BROMIDE 10 MG/ML 5 ML VIAL ONE (06:55)
[2018-11-25] MEDS ORDERED: ONDANSETRON INJ 2 MG/ML 2 ML VIAL ONE (06:55)
[2018-11-25] MEDS ORDERED: PROPOFOL IV EMULSION 10 MG/ML 20 ML VIAL IV ONE (06:55)
[2018-11-25] MEDS ORDERED: BUPIVACAINE/EPINEPHRINE 0.5% MPF 1:200,000 30 ML VIAL ONE (06:56)
[2018-11-25] MEDS ORDERED: ACETAMINOPHEN 1000 MG/100 ML IV IV ONE (07:06)
--- NOTE | 2018-11-25 07:19 | Anesthesiology Consultation ---
Date of Service November 25, 2018 Assessment & Plan ASA [id number] Proposed Anesthesia Anesthesia Type: General Risk / Benefits Reviewed With: PT / POA / Parent / Guardian, Accepts Plan and Informed Consent Obtained History Surgery Operation Date: 11/25/18 07:30 Proposed Procedures p Left Femur Fracture Trochanteric Nailing - Ishaan Figueroa MD Height/Weight Height: 5 ft 7 in Weight: 72.8 kg Allergies Allergy/AdvReac Type Severity Reaction Status Date / Time Cephalosporins Allergy Unknown HIVES/RASH Verified 11/24/18 10:56 cephalexin [From Keflex] Allergy Unknown Verified 11/24/18 10:56 celecoxib AdvReac Unknown upset Verified 11/24/18 10:56 stomach venlafaxine AdvReac Unknown GI UPSET Verified 11/24/18 10:56 Medications Home Medications Medication Instructions Recorded Confirmed Last Taken cholecalciferol (vitamin D3) 5,000 5,000 unit PO PM cap 07/18/18 11/24/18 08/06/18 16:00 unit capsule omeprazole 20 mg capsule,delayed 20 mg PO QAM #90 cap 07/18/18 11/24/18 08/07/18 release sertraline 100 mg tablet 150 mg PO QAM #135 tab 07/18/18 11/24/18 08/07/18 simvastatin 20 mg tablet 20 mg PO PM #90 tab 07/18/18 11/24/18 08/06/18 16:00 aspirin [Aspir-81] 81 mg PO HS 08/04/18 11/24/18 08/06/18 acetaminophen [Tylenol] 325 mg PO TID 08/07/18 11/24/18 08/07/18 08:00 gabapentin 400 mg PO TID 08/07/18 11/24/18 08/07/18 08:00 vit C-E-zinc toz-uouzlp-kvvlwe 2 tab PO PM 08/07/18 11/24/18 08/06/18 16:00 [[facility]] bupropion HCl SR 150 mg tablet,12 150 mg PO QAM #90 ea 09/04/18 11/24/18 Unknown hr sustained-release calcium 2 tab PO DAILY tab 09/07/18 11/24/18 Unknown nby-bhx-J9-Vr-jmqxpc-Tk-boron 250 mg-40 mg-125 unit tablet tramadol 50 mg tablet 50 mg PO TID #90 tab 10/05/18 11/24/18 Unknown metoprolol succinate ER 25 mg 25 mg PO DAILY #90 tab 11/09/18 11/24/18 Unknown tablet,extended release 24 hr tramadol 50 mg PO QID PRN #14 tab 11/15/18 11/24/18 Unknown Active Medications Generic Name Dose Route Start Last Admin Trade Name Freq PRN Reason Stop Dose Admin Aspirin 81 mg 11/24/18 21:00 11/24/18 20:08 Ecotrin Ectab PO 12/24/18 20:59 81 mg HS PATRIA Administration Gabapentin 400 mg 11/24/18 21:00 11/24/18 20:10 Neurontin PO 12/24/18 20:59 400 mg TID PATRIA Administration Lactated Ringer's 1,000 mls @ 80 mls/hr 11/24/18 16:25 11/25/18 05:11 Lr IV 12/24/18 16:24 80 mls/hr .[id number] PATRIA Administration Morphine Sulfate 2 mg 11/24/18 16:59 11/25/18 05:11 Morphine Sulfate IV 12/08/18 16:10 2 mg Q2H PRN Administration Pain Multivitamins/Minerals 1 tab 11/24/18 21:00 11/24/18 20:09 Multivitamin W/ Minerals Tab PO 12/24/18 20:59 1 tab PM PATRIA Administration Simvastatin 20 mg 11/24/18 21:00 11/24/18 20:10 Zocor PO 12/24/18 20:59 20 mg PM PATRIA Administration Vitamin D 5,000 units 11/24/18 21:00 11/24/18 20:10 Vitamin D3 PO 12/24/18 20:59 5,000 units PM PATRIA Administration Past Medical History Medical History Vitamin D deficiency (Resolved) Thrombosis of left external carotid artery (Resolved) Solitary thyroid nodule (Chronic) Macular degeneration (Chronic) Internal carotid artery stenosis (Chronic) Esophageal reflux (Chronic) Decreased hearing (Chronic) Collagenous colitis (Chronic) Chronic right hip pain (Chronic) Chronic pain syndrome (Chronic) Chronic osteoarthritis (Chronic) Chronic obstructive pulmonary disease (Chronic) Chronic constipation (Chronic) Aneurysm of infrarenal abdominal aorta (Chronic) Abnormal CT scan, lumbar spine (Chronic) Past Family History Family History Mother Acute myocardial infarction Father Stroke syndrome Hypertension Brother Lung cancer Acute myocardial infarction Sister Carcinoma of pancreas Past Surgical History Surgical History History of hip replacement, total (Resolved) Social History Smoking Status: Former smoker Hx Alcohol Use: No Hx Substance Use: No substance use type: does not use Review of Systems negative cough cold,fever, chest pain, sob Physical Exam Vital Signs Last Vital Signs Temp 37.3 C 11/25/18 05:35 Pulse 97 H 11/25/18 05:35 Resp 16 11/25/18 05:35 BP 131/73 11/25/18 05:35 Pulse Ox 92 11/25/18 05:35 Respiratory normal respiratory effort Auscultation: lungs clear to auscultation bilaterally Cardiovascular Rate/Rhythm: regular rate and regular rhythm Testing Laboratory Results 11/24/18 12:15 11/24/18 12:15 PT 10.9 Seconds (9.0-12.0) 11/24/18 12:15 INR 1.1 (0.9-1.1) 11/24/18 12:15 Urine Color Yellow 11/24/18 13:40 Urine Appearance Clear (Clear) 11/24/18 13:40 Urine pH 5.0 (4.5-7.5) 11/24/18 13:40 Ur Specific Kohler 1.020 (1.000-1.030) 11/24/18 13:40 Urine Protein Negative (Negative) 11/24/18 13:40 Urine Glucose (UA) Negative (Negative) 11/24/18 13:40 Urine Ketones Negative (Negative) 11/24/18 13:40 Urine Nitrite Negative (Negative) 11/24/18 13:40 Ur Leukocyte Esterase Negative (Negative) 11/24/18 13:40 Blood Type B Positive 11/24/18 16:28 Antibody Screen NEGATIVE 11/24/18 16:28 : Intertrochanteric fracture of left femur Qualifiers: Encounter type: initial encounter Fracture type: closed Fracture alignment: displaced Qualified Code(s): S72.142A - Displaced intertrochanteric fracture of left femur, initial encounter for closed fracture
[2018-11-25] MEDS ORDERED: ATROPINE SULFATE 0.1 MG/ML 10ML SYR IV PRN (07:21)
[2018-11-25] MEDS ORDERED: ePHEDrine sulfate 50 MG/ML AMP IV PRN (07:21)
[2018-11-25] MEDS ORDERED: ONDANSETRON INJ 2 MG/ML 2 ML VIAL IV PRN (07:21)
[2018-11-25] MEDS ORDERED: fentaNYL citrate 100 MCG/2 ML VIAL IV PRN (07:21)
--- NOTE | 2018-11-25 07:21 | History & Physical Bridge Note ---
Date of Service November 25, 2018 History & Physical Bridge Note I have examined the patient, reviewed the History & Physical and in the interval since the performance of the History & Physical I have noted the following changes of clinical significance: no changes noted
[2018-11-25] MEDS ORDERED: ePHEDrine sulfate 50 MG/ML AMP ONE (08:24)
[2018-11-25] MEDS ORDERED: VASOPRESSIN 20 UNIT/ML VIAL ONE (08:24)
[2018-11-25] MEDS ORDERED: PHENYLEPHRINE HCL 10 MG/ML VIAL ONE (08:24)
--- NOTE | 2018-11-25 08:51 | Post Operative Brief Note ---
PG Immediate Post Op with CF Date of Surgery November 25, 2018 Pre & Post Diagnosis Operation Date: 11/25/18 07:30 Pre-Op Diagnosis: Intertrochanteric fracture of left femur. Post-Op Diagnosis: Intertrochanteric fracture of left femur. I identified the patient and participated in the time-out.: Yes Procedure Operation Date: 11/25/18 07:30 Actual Procedures p Left Femur Fracture Trochanteric Nailing(Left) - Ishaan Figueroa MD Surgeon Ishaan Figueroa MD Counter Tender Chantelle, PAC Estimated Blood Loss 50 Findings Consistent with Post-Op Diagnosis Fluids 800 cc Drains Rose Catheter Anesthesia Type General Complications none Disposition Accompanied Patient To Recovery: No Disposition: Recovery Room
[2018-11-25] MEDS ORDERED: INFLUENZA VACCINE HIGH DOSE 65+ 0.5 ML SYR IM ONE (09:00)
[2018-11-25] MEDS ORDERED: INFLUENZA ADMINISTRATION CHARGE ONE (09:00)
--- NOTE | 2018-11-25 09:38 | Anesthesiology Progress Note ---
Date of Service November 25, 2018 Anesthesia Post Procedure Vital Signs Vital Signs: Temp Pulse Pulse Pulse Pulse Pulse Resp 11/25/18 09:25 36.6 C 95 H 16 11/25/18 09:15 93 H 16 11/25/18 09:05 98 H 16 11/25/18 08:56 36.7 C 100 H 12 11/25/18 05:35 37.3 C 97 H 16 11/24/18 23:33 37.2 C 90 16 11/24/18 22:17 69 11/24/18 16:05 36.7 C 69 16 11/24/18 15:30 73 15 11/24/18 15:00 73 18 11/24/18 14:30 75 14 11/24/18 14:00 69 22 11/24/18 13:32 68 18 11/24/18 13:30 69 17 11/24/18 13:15 67 16 11/24/18 13:14 67 14 11/24/18 12:31 76 15 11/24/18 12:30 70 15 11/24/18 12:19 69 19 11/24/18 12:18 70 18 11/24/18 12:00 65 20 11/24/18 11:00 63 18 11/24/18 10:25 69 21 11/24/18 10:22 67 23 11/24/18 10:17 36.8 C 66 16 BP BP BP Pulse Ox 11/25/18 09:25 102/49 L 92 11/25/18 09:15 108/52 L 94 11/25/18 09:05 106/58 L 94 11/25/18 08:56 128/61 94 11/25/18 05:35 131/73 92 11/24/18 23:33 118/70 92 11/24/18 22:17 118/70 11/24/18 16:05 166/77 H 97 11/24/18 15:30 137/73 11/24/18 15:00 127/72 95 11/24/18 14:30 142/72 H 95 11/24/18 14:00 114/62 96 11/24/18 13:32 165/84 H 98 11/24/18 13:30 165/84 H 98 11/24/18 13:15 167/81 H 90 11/24/18 13:14 11/24/18 12:31 184/110 H 96 11/24/18 12:30 90 11/24/18 12:19 175/90 H 11/24/18 12:18 191/89 H 11/24/18 12:00 95 11/24/18 11:00 96 11/24/18 10:25 90 11/24/18 10:22 191/89 H 90 11/24/18 10:17 191/89 H 91 Pain Intensity Left Thigh: Pain Intensity: 4 Transfer of Care Handoff Completed per policy Notes Mental Status: alert / awake / arousable and participated in evaluation Patient Amnestic to Procedure: Yes Nausea / Vomiting: adequately controlled Pain: adequately controlled Airway Patency, RR, SpO2: stable & adequate BP & HR: stable & adequate Hydration State: stable & adequate Anesthetic Complications: no major complications apparent and Pt Satisfied with anesthetic care
[2018-11-25] MEDS ORDERED: NALOXONE HCL 0.4 MG/1 ML VIAL/CARP IV PRN (10:04)
--- NOTE | 2018-11-25 10:13 | Fluoroscopy Report ---
FL femur LT 2V CLINICAL HISTORY: LEFT TROCHNAIL COMPARISON STUDY: 11/24/2018 FLUOROSCOPY TIME: 1 minute 17 seconds NUMBER OF FLUOROSCOPIC IMAGES: 4 FINDINGS: Findings consistent with intramedullary riaz placement of the femur as well as a left hip na rrowing procedure. IMPRESSION: Open reduction internal fixation left femur. The above report was generated using voice recognition software. It may contain grammatical, syntax or spelling errors. Electronically signed by: Ronnell Marvin M.D. 11/25/2018 10:12 AM
--- NOTE | 2018-11-25 10:39 | Operative Report ---
DATE OF OPERATION: 11/25/2018 SURGEON: Ishaan Figueroa MD BRIDGE CONTRACTOR: GERALDINE Reyes PREOPERATIVE DIAGNOSIS: Left intertrochanteric/subtrochanteric femur fracture. POSTOPERATIVE DIAGNOSIS: Left intertrochanteric/subtrochanteric femur fracture. PROCEDURE PERFORMED: Left long trochanteric nailing of left intertrochanteric/subtrochanteric femur fracture. COMPLICATIONS: None. ESTIMATED BLOOD LOSS: 50 mL. FLUID REPLACEMENT: 800 mL crystalloid fluid replacement. ANESTHESIA: General. SPECIMENS: None. OPERATIVE INDICATIONS: The patient is an 87-year-old fairly independent female who lives by herself, who sustained a fall yesterday. She was brought to the Emergency Room where x-rays revealed displaced intertrochanteric/subtrochanteric fracture. She was admitted to medicine service, medically optimized and indicated for surgical treatment. OPERATIVE IMPLANTS: Operative implants consisted of: 1. A Synthes left 360 mm x 11 mm long trochanteric nail. 2. A 100 mm helical blade. 3. A 52 mm distal interlocking screw. OPERATIVE PROCEDURE: The patient was taken to the operating room, identified and placed on the operating table in supine position. All contact areas were appropriately padded. IV antibiotics were provided by the anesthesia team. She was supposed to get vancomycin preoperatively, but she had not got, so we gave her 600 mg of clindamycin. A general anesthetic was implemented due to her extensive back surgery in the past. She was then placed on the fracture table. The left leg was placed in boot traction and the right leg was placed in a well leg catalan. I applied some longitudinal traction to the left leg and internally rotated the foot so the kneecap pointed to the ceiling. X-ray was brought in and the fracture was nearly anatomically aligned. The right hip and leg were then scrubbed with Hibiclens and prepped with ChloraPrep. The left leg was then prepped and draped in the usual sterile fashion. Under fluoroscopic guidance, a curvilinear incision was made just proximal to the tip of the trochanter. Dissection was carried through subcutaneous tissue down to the level of the gluteal fascia. The gluteal fascia was incised longitudinally in line with skin incision. I then placed a guidewire just lateral to the tip of the trochanter and in line with the IM canal in both the AP and lateral planes. This was advanced down the IM canal and verified fluoroscopically. I then overreamed this with a 17 mm reamer. This guidewire was removed and a ball-tipped guidewire was placed down the canal. I measured for length and a 360 mm nail was selected. The guidewire was overreamed with a 12.5 mm reamer. A 360 mm x 11 mm left long trochanteric nail was then placed over the guidewire and tapped into position. The lateral aiming arm was attached. A stab incision was made laterally and the lateral aiming arm was advanced to the lateral aspect of the femur. We did try and reduce the trochanter piece that slipped out slightly with the helical blade targeting device. The guidewire was placed in the central aspect of the femoral head and neck in both the AP and lateral planes. This was measured and a 100 mm helical blade was selected. The cortical drill was used to breach the cortex. The triple reamer set at 100 and a guidewire was overreamed. A 100 mm helical blade was then placed over the guidewire and tapped into position. This was verified fluoroscopically. I then tightened the set screw proximally. The lateral aiming arm was removed. Some final x-rays were obtained. Attention was then drawn toward distal interlocking. Using the perfect [place] technique, the dynamic distal interlocking hole was identified. Perfect circles were obtained. A stab incision was made. A distal interlocking screw was then placed in a standard fashion and the distal aspect to allow some dynamization. Some final fluoroscopic x-rays were obtained. Attention was then drawn toward closing. All wounds were irrigated with copious amounts of normal saline. I did inject locally with 30 mL of 0.5% Marcaine with epinephrine. The gluteal fascia was then closed with #1 Vicryl suture in running fashion. Subcutaneous tissues of all wounds were then closed with 2-0 Dexon suture in a buried interrupted fashion. Skin was closed with skin ed. Leg was then cleaned and dried and a sterile dressing with Xeroform, 4 x 4, sterile ABD pad and foam tape was applied. The patient was then taken off the fracture table and placed on the transport bed. She was brought out of general anesthesia and transferred to the recovery room in stable condition. The patient tolerated the procedure well with no complications. All needle and sponge counts were correct at the end of the operation. I attest to the content of the Intraoperative Record and any orders documented therein. Any exception s are noted below.
[2018-11-25] MEDS: GABAPENTIN 400 MG CAP PO SCH ×3 (10:40→20:02)
[2018-11-25] MEDS: PANTOprazole 40 MG TAB PO SCH (10:40)
[2018-11-25] MEDS: SERTRALINE HCL 100 MG TABLET PO SCH (10:41)
[2018-11-25] MEDS: BuPROPion SR 150 MG TABCR PO SCH (10:41)
[2018-11-25] MEDS: METOPROLOL SUCC 25MG EXT REL TAB PO SCH (10:42)
[2018-11-25] MEDS: CALCIUM 600MG + VIT D 400 IU TAB PO SCH (10:43)
[2018-11-25] MEDS: ASPIRIN 81 MG ECTAB PO SCH ×2 (13:07→20:03)
--- NOTE | 2018-11-25 14:59 | Hospitalist Progress Note ---
Date of Service November 25, 2018 Assessment & Plan (1) Intertrochanteric fracture of left femur: POD #0 for IM nailing of left femoral neck tolerated well, minimal pain afterwards eating well, breathing stable check labs in the AM therapy orders per ortho d/w family, will look into rehab options since she lives alone (2) Fall: will consult PT/OT (3) HTN (hypertension): BP low normal after surgery follow closely, metoprolol with hold parameters (4) Internal carotid artery stenosis: continue antiplatelets (5) Vitamin D deficiency: continue supplementation (6) Esophageal reflux: continue PPI (7) Chronic obstructive pulmonary disease: breathing stable, no wheezing (8) Aneurysm of infrarenal abdominal aorta: stable, follow as outpatient (9) Hyperlipidemia: (10) Depression: (11) History of hip replacement, total: Subjective patient doing well after IM nailing procedure this morning no pain in the hip vitals stable, no operative complications, blood loss estimated at 50cc updated family at the bedside patient eating well, no chest pain or pressure, no dyspnea Review of Systems Review of Systems: All systems reviewed & are unremarkable except as noted in HPI & below Respiratory: no cough and no dyspnea Cardiovascular: no chest pain and no edema Musculoskeletal: + joint pain (left hip with movement only) Physical Exam Constitutional: WD/WN, vitals as above Eyes: PERRL, conjunctivae normal, anicteric sclerae ENMT: external ear and nose normal, oropharynx normal Neck: trachea midline, no thyromegaly Respiratory: normal respiratory effort, lungs clear to auscultation Cardiovascular: RRR, no murmur, no edema Gastrointestinal (Abdomen): normal bowel sounds, soft, nontender, no hepatosplenomegaly Musculoskeletal: Head/Neck/Chest: normocephalic and head atraumatic Extremities: + limited ROM of extremities (left hip due to pain) and strength 5/5 throughout; no muscle atrophy, no cyanosis and no clubbing Skin: no rashes, warm and dry Neurologic: patellar DTR's 2+ bilat, sensation intact and PERRL, EOMI, accommodation nl, no face palsy, no dysarthria Psychiatric: A+Ox3, euthymic affect Lymphatic: no cervical or axillary lymphadenopathy Results & Data Vital Signs (Past 12 Hours) Vital Signs Temp Pulse Pulse Resp BP Pulse Ox 11/25/18 13:07 37 C 94 H 16 95/55 L 95 11/25/18 11:49 36.7 C 91 H 16 95/56 L 97 11/25/18 10:52 93 H 16 97/57 L 95 11/25/18 10:16 36.4 C L 92 H 18 91/58 L 96 11/25/18 10:12 36.8 C 96 H 18 106/65 96 11/25/18 09:25 36.6 C 95 H 16 102/49 L 92 11/25/18 09:15 93 H 16 108/52 L 94 11/25/18 09:05 98 H 16 106/58 L 94 11/25/18 08:56 36.7 C 100 H 12 128/61 94 11/25/18 05:35 37.3 C 97 H 16 131/73 92 Laboratory Results Laboratory Results - last 24 hr 11/24/18 16:28 Blood Type B Positive Antibody Screen NEGATIVE Diagnostic Findings FL femur LT 2V FINDINGS: Findings consistent with intramedullary riaz placement of the femur as well as a left hip narrowing procedure. IMPRESSION: Open reduction internal fixation left femur. Medications Administered Current Inpatient Medications Aspirin (Ecotrin Ectab) 81 mg PO BID [facility] Stop: 12/25/18 10:03 Last Admin: 11/25/18 13:07 Dose: 81 mg Documented by: Bupropion HCl (Wellbutrin-Sr) 150 mg PO QAM [facility] Stop: 12/25/18 08:59 Last Admin: 11/25/18 10:41 Dose: 150 mg Documented by: Gabapentin (Neurontin) 400 mg PO TID [facility] Stop: 12/24/18 20:59 Last Admin: 11/25/18 13:44 Dose: 400 mg Documented by: Vancomycin HCl (Vancomycin Hcl) 1,000 mg in 270 mls @ 125 mls/hr IV PREOP PATRIA; Protocol Stop: 11/25/18 18:00 Last Admin: 11/25/18 10:31 Dose: Not Given Documented by: Lactated Ringer's (Lr) 1,000 mls @ 80 mls/hr IV .[id number] [facility] Stop: 12/24/18 16:24 Last Infusion: 11/25/18 14:41 Dose: 80 mls/hr Documented by: Metoprolol Succinate (Toprol Xl) 25 mg PO DAILY [facility] Stop: 12/25/18 08:59 Last Admin: 11/25/18 10:42 Dose: Not Given Documented by: Morphine Sulfate (Morphine Sulfate) 4 mg IV Q4H PRN PRN Reason: Severe Pain Stop: 12/08/18 16:57 Morphine Sulfate (Morphine Sulfate) 2 mg IV Q2H PRN PRN Reason: Pain Stop: 12/08/18 16:10 Last Admin: 11/25/18 05:11 Dose: 2 mg Documented by: Multivitamins/Minerals (Caltrate Plus) 1 tab PO DAILY PATRIA Stop: 12/25/18 08:59 Last Admin: 11/25/18 10:43 Dose: 1 tab Documented by: Multivitamins/Minerals (Multivitamin W/ Minerals Tab) 1 tab PO PM PATRIA Stop: 12/24/18 20:59 Last Admin: 11/24/18 20:09 Dose: 1 tab Documented by: Naloxone HCl (Narcan) 0.1 mg IV UD PRN PRN Reason: Opioid Overdose Stop: 12/25/18 10:03 Ondansetron HCl (Zofran) 4 mg IV Q6H PRN PRN Reason: Nausea Stop: 12/24/18 16:10 Pantoprazole Sodium (Protonix) 40 mg PO QAM PATRIA Stop: 12/25/18 08:59 Last Admin: 11/25/18 10:40 Dose: 40 mg Documented by: Polyethylene Glycol (Miralax Powder Packet) 17 gm PO DAILY PRN PRN Reason: Constipation Stop: 12/24/18 16:10 Sertraline HCl (Zoloft) 150 mg PO QAM PATRIA Stop: 12/25/18 08:59 Last Admin: 11/25/18 10:41 Dose: 150 mg Documented by: Simvastatin (Zocor) 20 mg PO PM PATRIA Stop: 12/24/18 20:59 Last Admin: 11/24/18 20:10 Dose: 20 mg Documented by: Vitamin D (Vitamin D3) 5,000 units PO PM PATRIA Stop: 12/24/18 20:59 Last Admin: 11/24/18 20:10 Dose: 5,000 units Documented by: PG Care Time/CCT Total # of Minutes Spent Total Time Spent with Patient: Total time spent is greater than 50% in coordination of care (as documented) at patient's floor/unit and/or counseling patient: (1) Intertrochanteric fracture of left femur Encounter type: initial encounter Fracture alignment: displaced Fracture type: closed Qualified Code(s): S72.142A - Displaced intertrochanteric fracture of left femur, initial encounter for closed fracture
[2018-11-25] MEDS: SIMVASTATIN 20 MG TAB PO SCH (20:01)
[2018-11-25] MEDS: CHOLECALCIFEROL 1,000 UNITS TAB PO SCH (20:02)
[2018-11-25] MEDS: CEROVITE ADV FORMULA TAB PO SCH (20:02)
[2018-11-26] MEDS: MoRPHine SULFATE 2 MG/ML CARP IV PRN (05:14)
[2018-11-26] MEDS: LACTATED RINGER'S 1,000 ML IV SCH (05:15)
[2018-11-26] MEDS ORDERED: CLINDAMYCIN 600 MG/54 ML BAG IV SCH (06:00)
[2018-11-26 07:03] LABS: BUN Creatinine Ratio 14.8 (10-20); Creatinine Clr Calc Pharmacy 29.2 ml/min; Est GFR (African American) 40.7; Est GFR (Non-African American) 35.1; Potassium 4.9 mmol/L (3.5-5.1)
[2018-11-26 07:10] LABS: Hematocrit (blood only) 23.2 % (37-47); Hemoglobin 7.4 g/dL (12.0-16.0); Mean Corpuscular Hemoglobin 28.8 pg (25-34); Mean Corpuscular Hgb Conc 31.9 g/dL (32-36); Mean Corpuscular Volume 90.3 fL (80-100); Mean Platelet Volume 9.4 fL (7.4-10.4); Platelet Count 194 K/uL (130-400); RDW Coefficient of Variation 14.5 % (11.5-14.5); Red Blood Count 2.57 M/uL (4.2-5.4); White Blood Count 7.76 K/uL (4.8-10.8)
[2018-11-26 07:12] LABS: Basophils # (auto) 0.03 K/uL (0-0.2); Basophils % (auto) 0.4 %; Eosinophils # (auto) 0.15 K/uL (0-0.5); Eosinophils % (auto) 1.9 %; Immature Granulocytes # (auto) 0.01 K/uL (0.00-0.02); Immature Granulocytes % (auto) 0.1 %; Lymphocytes # (auto) 2.09 K/uL (1.2-3.4); Lymphocytes % (auto) 26.9 %; Monocytes # (auto) 1.01 K/uL (0.11-0.59); Neutrophils # (auto) 4.47 K/uL (1.4-6.5); Neutrophils % (auto) 57.7 %; Polychromasia 1+
[2018-11-26] MEDS ORDERED: SODIUM CHLORIDE 0.9% 250 ML IV PRN ×2 (07:35→13:41)
[2018-11-26] MEDS: BuPROPion SR 150 MG TABCR PO SCH (08:49)
[2018-11-26] MEDS: METOPROLOL SUCC 25MG EXT REL TAB PO SCH (08:49)
[2018-11-26] MEDS: GABAPENTIN 400 MG CAP PO SCH ×3 (08:49→20:21)
[2018-11-26] MEDS: ASPIRIN 81 MG ECTAB PO SCH ×2 (08:49→20:21)
[2018-11-26] MEDS: PANTOprazole 40 MG TAB PO SCH (08:50)
[2018-11-26] MEDS: SERTRALINE HCL 100 MG TABLET PO SCH (08:50)
[2018-11-26] MEDS: CALCIUM 600MG + VIT D 400 IU TAB PO SCH (08:50)
--- NOTE | 2018-11-26 09:11 | Progress Note ---
DATE: 11/26/2018 SUBJECTIVE: An 87-year-old female postop day #1 from IM nailing of the left intertrochanteric/subtrochanteric fracture. She is doing pretty well. No pain while lying in bed, but did say she had quite a bit of pain while trying to mobilize last evening. No chest pain or shortness of breath. Not feeling dizzy or lightheaded. No new complaints. OBJECTIVE: VITAL SIGNS: Temperature 36.6. Vital signs stable. GENERAL: This is a pleasant elderly female. She is lying in bed, looks comfortable. EXTREMITIES: Examination of the left leg reveals the leg lengths to be equal. Leg is well aligned. Dressing is clean, dry and intact. She can dorsiflex and plantarflex her foot appropriately. She is neurologically intact. LABORATORY DATA: Hemoglobin 7.7. Hematocrit 23.2. Electrolytes are stable. Creatinine just slightly elevated. ASSESSMENT: An 87-year-old white female postop day #1 from IM nailing of left intertrochanteric/subtrochanteric fracture, doing pretty well. She is anemic, but currently asymptomatic. Creatinine is a little bit elevated. Pain seems to be controlled for the most part. PLAN: 1. DVT prophylaxis and we would recommend thigh-high TEDs, SCDs, and just a baby aspirin twice a day for the next 4 weeks. 2. PT/OT. She can weightbear as tolerated. 3. Anemia. She is currently relatively asymptomatic. Will continue iron supplementation. We will leave that up to the medicine service about transfusion, but unless she develops symptoms, I would recommend continued followup and just clinical followup. 4. Elevated creatinine. Creatinine is a little bit elevated. This will likely improve with further hydration. Encourage oral intake. 5. Disposition: She is going to likely need a rehab stay and is more open to that this morning. She will likely be okay for discharge any time medically stable on Tuesday or thereafter. I need to see her back 2 weeks out from surgery date. Any orthopedic questions can be directed to me at [phone].
[2018-11-26] MEDS ORDERED: OXYCODONE HCL IR 5 MG TAB (IMMEDIATE RELEASE) PO STA (12:31)
[2018-11-26 13:02] LABS: Hemoglobin 7.7 g/dL (12.0-16.0)
--- NOTE | 2018-11-26 13:47 | Hospitalist Progress Note ---
Date of Service November 26, 2018 Assessment & Plan (1) Intertrochanteric fracture of left femur: POD #1 for IM nailing of left femoral neck tolerated well, minimal pain afterwards eating well, breathing stable Aspirin BID for DVT prophylaxis acute blood loss, see below d/w family, will look into rehab options since she lives alone (2) Acute blood loss as cause of postoperative anemia: Hb down to 7.7 today from 11 yesterday will give one unit of blood BP stable and HR in the 90's (3) Fall: will consult PT/OT (4) HTN (hypertension): BP normal today follow closely, metoprolol with hold parameters (5) Internal carotid artery stenosis: continue antiplatelets (6) Vitamin D deficiency: continue supplementation (7) Esophageal reflux: continue PPI (8) Chronic obstructive pulmonary disease: breathing stable, no wheezing (9) Aneurysm of infrarenal abdominal aorta: stable, follow as outpatient (10) Hyperlipidemia: (11) Depression: (12) History of hip replacement, total: Subjective patient doing okay today, she was able to eat her breakfast no chest pain or dyspnea therapy attempted to get patient up, she had a lot of pain, unstable Hb was 7.4 on AM labs, dropped by 4 gm from yesterday, no signs of active bleeding repeated in afternoon, 7.7, will transfuse Cr stable at 1.3 Review of Systems Review of Systems: All systems reviewed & are unremarkable except as noted in HPI & below Constitutional: + fatigue and + weakness; no fever Respiratory: no cough and no dyspnea Cardiovascular: no chest pain and no edema Musculoskeletal: + joint pain (hip) Physical Exam Constitutional: WD/WN, vitals as above Eyes: PERRL, conjunctivae normal, anicteric sclerae ENMT: external ear and nose normal, oropharynx normal Neck: trachea midline, no thyromegaly Respiratory: normal respiratory effort, lungs clear to auscultation Cardiovascular: RRR, no murmur, no edema Gastrointestinal (Abdomen): normal bowel sounds, soft, nontender, no hepatosplenomegaly Musculoskeletal: Head/Neck/Chest: normocephalic and head atraumatic Extremities: + limited ROM of extremities (left hip due to pain) and strength 5/5 throughout; no muscle atrophy, no cyanosis and no clubbing Skin: no rashes, warm and dry Neurologic: patellar DTR's 2+ bilat, sensation intact and PERRL, EOMI, accommodation nl, no face palsy, no dysarthria Psychiatric: A+Ox3, euthymic affect Lymphatic: no cervical or axillary lymphadenopathy Results & Data Vital Signs (Past 12 Hours) Vital Signs Temp Pulse Resp BP Pulse Ox 11/26/18 07:22 36.6 C 98 H 16 131/67 93 11/26/18 04:15 37.4 C 95 H 16 130/64 95 11/26/18 02:20 88 L Laboratory Results Laboratory Results - last 24 hr 11/24/18 11/26/18 11/26/18 16:28 05:58 05:58 WBC 7.76 RBC 2.57 L Hgb 7.4 L D Hct 23.2 L MCV 90.3 MCH 28.8 MCHC 31.9 L RDW Std Deviation 48.0 H RDW Coeff of Martine 14.5 Plt Count 194 MPV 9.4 Immature Gran % (Auto) 0.1 Neut % (Auto) 57.7 Lymph % (Auto) 26.9 [place] % (Auto) 13.0 Eos % (Auto) 1.9 Baso % (Auto) 0.4 Immature Gran # (Auto) 0.01 Neut # (Auto) 4.47 Lymph # (Auto) 2.09 [place] # (Auto) 1.01 H Eos # (Auto) 0.15 Baso # (Auto) 0.03 Polychromasia 1+ Sodium 138 Potassium 4.9 Chloride 105 Carbon Dioxide 31 Anion Gap 2.0 L BUN 20 H Creatinine 1.37 H Est Cr Clr Drug Dosing 29.2 Est GFR ( Amer) 40.7 Est GFR (Non-Af Amer) 35.1 BUN/Creatinine Ratio 14.8 Glucose 126 H Calcium 8.0 L Blood Type B Positive Antibody Screen NEGATIVE Crossmatch See Detail 11/26/18 12:48 WBC RBC Hgb 7.7 L Hct 24.0 L MCV MCH MCHC RDW Std Deviation RDW Coeff of Martine Plt Count MPV Immature Gran % (Auto) Neut % (Auto) Lymph % (Auto) [place] % (Auto) Eos % (Auto) Baso % (Auto) Immature Gran # (Auto) Neut # (Auto) Lymph # (Auto) [place] # (Auto) Eos # (Auto) Baso # (Auto) Polychromasia Sodium Potassium Chloride Carbon Dioxide Anion Gap BUN Creatinine Est Cr Clr Drug Dosing Est GFR ( Amer) Est GFR (Non-Af Amer) BUN/Creatinine Ratio Glucose Calcium Blood Type Antibody Screen Crossmatch Medications Administered Current Inpatient Medications Aspirin (Ecotrin Ectab) 81 mg PO BID [facility] Stop: 12/25/18 10:03 Last Admin: 11/26/18 08:49 Dose: 81 mg Documented by: Bupropion HCl (Wellbutrin-Sr) 150 mg PO QAM PATRIA Stop: 12/25/18 08:59 Last Admin: 11/26/18 08:49 Dose: 150 mg Documented by: Gabapentin (Neurontin) 400 mg PO TID [facility] Stop: 12/24/18 20:59 Last Admin: 11/26/18 08:49 Dose: 400 mg Documented by: Sodium Chloride (Nss) 250 mls @ 15 mls/hr IV .[id number] PRN PRN Reason: For Transfusion Stop: 12/26/18 13:40 Metoprolol Succinate (Toprol Xl) 25 mg PO DAILY [facility] Stop: 12/25/18 08:59 Last Admin: 11/26/18 08:49 Dose: 25 mg Documented by: Morphine Sulfate (Morphine Sulfate) 4 mg IV Q4H PRN PRN Reason: Severe Pain Stop: 12/08/18 16:57 Morphine Sulfate (Morphine Sulfate) 2 mg IV Q2H PRN PRN Reason: Pain Stop: 12/08/18 16:10 Last Admin: 11/26/18 05:14 Dose: 2 mg Documented by: Multivitamins/Minerals (Caltrate Plus) 1 tab PO DAILY [facility] Stop: 12/25/18 08:59 Last Admin: 11/26/18 08:50 Dose: 1 tab Documented by: Multivitamins/Minerals (Multivitamin W/ Minerals Tab) 1 tab PO PM PATRIA Stop: 12/24/18 20:59 Last Admin: 11/25/18 20:02 Dose: 1 tab Documented by: Naloxone HCl (Narcan) 0.1 mg IV UD PRN PRN Reason: Opioid Overdose Stop: 12/25/18 10:03 Ondansetron HCl (Zofran) 4 mg IV Q6H PRN PRN Reason: Nausea Stop: 12/24/18 16:10 Oxycodone HCl (Roxicodone Immediate Rel) 5 mg PO Q6 PRN PRN Reason: Pain Stop: 12/10/18 09:37 Pantoprazole Sodium (Protonix) 40 mg PO QAM PATRIA Stop: 12/25/18 08:59 Last Admin: 11/26/18 08:50 Dose: 40 mg Documented by: Polyethylene Glycol (Miralax Powder Packet) 17 gm PO DAILY PRN PRN Reason: Constipation Stop: 12/24/18 16:10 Sertraline HCl (Zoloft) 150 mg PO QAM [facility] Stop: 12/25/18 08:59 Last Admin: 11/26/18 08:50 Dose: 150 mg Documented by: Simvastatin (Zocor) 20 mg PO PM [facility] Stop: 12/24/18 20:59 Last Admin: 11/25/18 20:01 Dose: 20 mg Documented by: Vitamin D (Vitamin D3) 5,000 units PO PM [facility] Stop: 12/24/18 20:59 Last Admin: 11/25/18 20:02 Dose: 5,000 units Documented by: PG Care Time/CCT Total # of Minutes Spent Total Time Spent with Patient: Total time spent is greater than 50% in coordination of care (as documented) at patient's floor/unit and/or counseling patient: (1) Intertrochanteric fracture of left femur Encounter type: initial encounter Fracture alignment: displaced Fracture type: closed Qualified Code(s): S72.142A - Displaced intertrochanteric fracture of left femur, initial encounter for closed fracture
[2018-11-26] MEDS: OXYCODONE HCL IR 5 MG TAB (IMMEDIATE RELEASE) PO PRN (14:01)
[2018-11-26 16:31] LABS: Blood Urine 1+ (Negative)
[2018-11-26] MEDS: CEROVITE ADV FORMULA TAB PO SCH (20:21)
[2018-11-26] MEDS: CHOLECALCIFEROL 1,000 UNITS TAB PO SCH (20:21)
[2018-11-26] MEDS: SIMVASTATIN 20 MG TAB PO SCH (20:21)
[2018-11-27] MEDS: MoRPHine SULFATE 2 MG/ML CARP IV PRN (05:31)
[2018-11-27] MEDS: OXYCODONE HCL IR 5 MG TAB (IMMEDIATE RELEASE) PO PRN ×3 (05:34→20:15)
[2018-11-27 07:44] LABS: Basophils # (auto) 0.03 K/uL (0-0.2); Basophils % (auto) 0.4 %; Eosinophils # (auto) 0.22 K/uL (0-0.5); Eosinophils % (auto) 2.6 %; Hematocrit (blood only) 26.9 % (37-47); Hemoglobin 8.4 g/dL (12.0-16.0); Immature Granulocytes # (auto) 0.01 K/uL (0.00-0.02); Immature Granulocytes % (auto) 0.1 %; Lymphocytes # (auto) 1.61 K/uL (1.2-3.4); Mean Corpuscular Hemoglobin 28.5 pg (25-34); Mean Corpuscular Hgb Conc 31.2 g/dL (32-36); Mean Corpuscular Volume 91.2 fL (80-100); Mean Platelet Volume 9.3 fL (7.4-10.4); Monocytes # (auto) 0.98 K/uL (0.11-0.59); Monocytes % (auto) 11.6 %; Neutrophils # (auto) 5.61 K/uL (1.4-6.5); Neutrophils % (auto) 66.3 %; Platelet Count 187 K/uL (130-400); RDW Coefficient of Variation 14.2 % (11.5-14.5); RDW Standard Deviation 47.7 fL (36.4-46.3); Red Blood Count 2.95 M/uL (4.2-5.4); White Blood Count 8.46 K/uL (4.8-10.8)
[2018-11-27] MEDS: GABAPENTIN 400 MG CAP PO SCH ×3 (08:38→20:15)
[2018-11-27] MEDS: METOPROLOL SUCC 25MG EXT REL TAB PO SCH (08:38)
[2018-11-27] MEDS: ASPIRIN 81 MG ECTAB PO SCH ×2 (08:39→20:15)
[2018-11-27] MEDS: SERTRALINE HCL 100 MG TABLET PO SCH (08:39)
[2018-11-27] MEDS: CALCIUM 600MG + VIT D 400 IU TAB PO SCH (08:39)
[2018-11-27] MEDS: BuPROPion SR 150 MG TABCR PO SCH (08:39)
[2018-11-27] MEDS: PANTOprazole 40 MG TAB PO SCH (08:39)
[2018-11-27] MEDS: ACETAMINOPHEN 325 MG TAB PO PRN (08:41)
--- NOTE | 2018-11-27 09:07 | Progress Note ---
DATE: 11/27/2018 SUBJECTIVE: An 87-year-old white female postop day 2 from IM nailing of left intertrochanteric/subtrochanteric fracture. She is doing well. No pain at all while in bed. She does have discomfort with mobilization. No new complaints. No chest pain or shortness of breath. OBJECTIVE: VITAL SIGNS: Temperature 36.4. Vital signs stable. GENERAL: Shows a pleasant elderly female. She is lying in bed, looks comfortable. EXTREMITIES: Examination of the left leg reveals the dressing to be clean, dry and intact. Leg lengths are equal. Leg position was good. Dressing is clean, dry and intact. She is neurologically intact. LABORATORY DATA: Hemoglobin 8.4. Hematocrit 26.9. Electrolytes are stable. Creatinine just slightly elevated. It is about her baseline. ASSESSMENT: An 87-year-old female postop day 2 from a left femur IM nailing for an intertrochanteric/subtrochanteric fracture, doing okay. She is orthopedically stable. She is okay for discharge any time medically stable. I need to see her back 2 weeks from her surgery date. PLAN: 1. DVT prophylaxis including thigh-high TEDs, SCDs and we would recommend a baby aspirin twice a day. 2. PT/OT. She can weightbear as tolerated on left lower extremity. 3. Medical management as per the Medicine Service. 4. Disposition: She is orthopedically okay for discharge any time medically stable. I need to see her back 2 weeks out from surgery. Any Orthopedic questions can be directed to me at [phone].
--- NOTE | 2018-11-27 10:00 | Anesthesiology Progress Note ---
Date of Service November 27, 2018 Anesthesia Post Procedure Vital Signs Vital Signs: Temp Pulse Pulse Resp BP BP Pulse Ox 11/27/18 07:22 36.4 C L 78 16 125/70 96 11/27/18 06:36 91 11/27/18 06:33 89 L 11/27/18 06:30 60 L 11/27/18 06:00 95 11/27/18 00:31 37.0 C 93 11/26/18 22:59 90 11/26/18 22:55 37.7 C H 97 H 17 137/74 86 L 11/26/18 18:20 37.4 C 93 H 18 114/66 94 11/26/18 17:40 37 C 87 14 143/74 H 92 11/26/18 17:20 37.5 C 92 H 18 143/73 H 90 11/26/18 16:48 36.8 C 91 H 18 139/62 91 11/26/18 16:20 37.5 C 98 H 18 142/76 H 90 11/26/18 16:12 37.3 C 90 18 135/71 91 11/26/18 15:30 37.8 C H 90 18 158/66 H 90 11/26/18 15:20 37.4 C 91 H 18 149/72 H 91 11/26/18 14:50 37 C 88 18 128/66 92 11/26/18 14:35 36.9 C 92 H 16 133/72 97 11/26/18 14:17 37.4 C 94 H 20 126/73 92 Notes Mental Status: alert / awake / arousable and participated in evaluation Nausea / Vomiting: adequately controlled Pain: adequately controlled Airway Patency, RR, SpO2: stable & adequate BP & HR: stable & adequate Hydration State: stable & adequate Anesthetic Complications: no major complications apparent and Pt Satisfied with anesthetic care
--- NOTE | 2018-11-27 11:35 | Hospitalist Progress Note ---
Date of Service November 27, 2018 Assessment & Plan (1) Intertrochanteric fracture of left femur: POD #2 for IM nailing of left femoral neck. Slowly improving. Appreciate Ortho recommendations Aspirin BID for DVT prophylaxis H&H stable. Continue physical and occupational therapy. Patient most likely needs to go to SNF since she lives alone. (2) Acute blood loss as cause of postoperative anemia: H&H stable after 1 unit of blood. Improved from 7.7-8.4. It was due to acute blood loss during the surgery (3) Fall: Ongoing PT/OT. Patient will need placement to rehab after discharge (4) HTN (hypertension): BP normal today follow closely, metoprolol with hold parameters (5) Internal carotid artery stenosis: continue antiplatelets (6) Vitamin D deficiency: continue supplementation (7) Esophageal reflux: continue PPI (8) Chronic obstructive pulmonary disease: breathing stable, no wheezing (9) Aneurysm of infrarenal abdominal aorta: stable, follow as outpatient (10) Hyperlipidemia: (11) Depression: (12) History of hip replacement, total: Subjective She is seen and examined at the bedside. Slowly improving. Ongoing physical therapy. Status post day 2 left long trochanteric nailing of left intratrochanteric/subtrochanteric femur fracture. H&H is stable at 8.4/26.9 status post transfusion. Patient denies fever chills chest pain shortness of breath abdominal pain frequency urgency. P.o. intake improving. Regular BMs. Review of Systems Review of Systems: All systems reviewed & are unremarkable except as noted in HPI & below Physical Exam Constitutional: WD/WN, vitals as above well developed and + frail appearing Eyes: PERRL, conjunctivae normal, anicteric sclerae ENMT: external ear and nose normal, oropharynx normal Neck: trachea midline, no thyromegaly Respiratory: normal respiratory effort, lungs clear to auscultation Cardiovascular: RRR, no murmur, no edema Vessels: dorsalis pedis pulses present Gastrointestinal (Abdomen): normal bowel sounds, soft, nontender, no hepatosplenomegaly Musculoskeletal: no cyanosis or clubbing, extremities motor strength 5/5 Skin: no rashes, warm and dry Neurologic: patellar DTR's 2+ bilat, sensation intact Psychiatric: A+Ox3, euthymic affect Lymphatic: no cervical or axillary lymphadenopathy Results & Data Vital Signs (Past 12 Hours) Vital Signs Temp Pulse Resp BP Pulse Ox 11/27/18 10:07 74 16 94 11/27/18 07:22 36.4 C L 78 16 125/70 96 11/27/18 06:36 91 11/27/18 06:33 89 L 11/27/18 06:30 60 L 11/27/18 06:00 95 11/27/18 00:31 37.0 C 93 PG Care Time/CCT Total # of Minutes Spent Total Time Spent with Patient: Total time spent is greater than 50% in coordination of care (as documented) at patient's floor/unit and/or counseling patient: (1) Intertrochanteric fracture of left femur Encounter type: initial encounter Fracture alignment: displaced Fracture type: closed Qualified Code(s): S72.142A - Displaced intertrochanteric fracture of left femur, initial encounter for closed fracture
[2018-11-27] MEDS: SODIUM CHLORIDE 0.9% 500 ML IV SCH ×2 (15:10→21:45)
[2018-11-27] MEDS: SIMVASTATIN 20 MG TAB PO SCH (20:15)
[2018-11-27] MEDS: CEROVITE ADV FORMULA TAB PO SCH (20:15)
[2018-11-27] MEDS: CHOLECALCIFEROL 1,000 UNITS TAB PO SCH (20:15)
[2018-11-28] MEDS: SODIUM CHLORIDE 0.9% 500 ML IV SCH ×3 (03:28→16:47)
[2018-11-28 06:08] LABS: Basophils # (auto) 0.03 K/uL (0-0.2); Basophils % (auto) 0.4 %; Eosinophils # (auto) 0.22 K/uL (0-0.5); Eosinophils % (auto) 2.9 %; Hematocrit (blood only) 23.9 % (37-47); Hemoglobin 7.7 g/dL (12.0-16.0); Immature Granulocytes # (auto) 0.01 K/uL (0.00-0.02); Immature Granulocytes % (auto) 0.1 %; Lymphocytes # (auto) 1.64 K/uL (1.2-3.4); Lymphocytes % (auto) 21.6 %; Mean Corpuscular Hemoglobin 29.1 pg (25-34); Mean Corpuscular Hgb Conc 32.2 g/dL (32-36); Mean Corpuscular Volume 90.2 fL (80-100); Mean Platelet Volume 9.1 fL (7.4-10.4); Monocytes # (auto) 0.75 K/uL (0.11-0.59); Monocytes % (auto) 9.9 %; Neutrophils # (auto) 4.95 K/uL (1.4-6.5); Neutrophils % (auto) 65.1 %; Platelet Count 222 K/uL (130-400); RDW Coefficient of Variation 14.4 % (11.5-14.5); RDW Standard Deviation 47.3 fL (36.4-46.3); Red Blood Count 2.65 M/uL (4.2-5.4)
[2018-11-28 06:49] LABS: Polychromasia 1+
[2018-11-28 06:53] LABS: Albumin Level 2.1 gm/dl (3.4-5.0); BUN Creatinine Ratio 18.1 (10-20); Calcium 8.1 mg/dl (8.5-10.1); Creatinine Clr Calc Pharmacy 38.8 ml/min; Est GFR (African American) 57.4; Est GFR (Non-African American) 49.5; Potassium 4.1 mmol/L (3.5-5.1)
[2018-11-28 07:07] LABS: Albumin Globulin Ratio 0.6 (0.9-2); Bilirubin,Total 0.5 mg/dl (0.2-1); Globulin 3.6 gm/dl (2.5-4.0); Total Protein 5.7 gm/dl (6.4-8.2)
[2018-11-28] MEDS: ASPIRIN 81 MG ECTAB PO SCH ×2 (09:34→21:59)
[2018-11-28] MEDS: GABAPENTIN 400 MG CAP PO SCH ×3 (09:34→21:59)
[2018-11-28] MEDS: CALCIUM 600MG + VIT D 400 IU TAB PO SCH (09:34)
[2018-11-28] MEDS: METOPROLOL SUCC 25MG EXT REL TAB PO SCH (09:34)
[2018-11-28] MEDS: BuPROPion SR 150 MG TABCR PO SCH (09:35)
[2018-11-28] MEDS: SERTRALINE HCL 100 MG TABLET PO SCH (09:35)
--- NOTE | 2018-11-28 11:33 | Progress Note ---
DATE: 11/28/2018 SUBJECTIVE: An 87-year-old white female postop day 3 from IM nailing of a left intertrochanteric/subtrochanteric fracture. She is doing pretty well. No pain at all while lying in bed. She continues to have pain with mobilization. No new complaints. OBJECTIVE: VITAL SIGNS: Temperature 37.1. Vital signs stable. GENERAL: Shows a pleasant elderly female, lying in bed, looks pretty comfortable this morning. EXTREMITIES: Examination of left hip reveals the dressing to be clean, dry and intact. Leg lengths are equal. Thigh is soft and supple. She is neurologically intact. LABORATORY DATA: Hemoglobin is 7.7. Hematocrit 23.9. Electrolytes are stable. Creatinine is actually improved at 1.03. ASSESSMENT: An 87-year-old female postoperative day 3 from intramedullary nailing of a left intertrochanteric/subtrochanteric fracture, doing pretty well. Pain is controlled. She is neurologically intact. She is anemic, but does not appear to be symptomatic. Creatinine is actually improved, probably suggestive of some hemodilution. PLAN: 1. DVT prophylaxis including thigh-high TEDs, SCDs, and aspirin twice a day for 6 weeks. 2. PT/OT. She can fully weightbear in the left leg as she can tolerate. 3. Medical management as per the medicine service. 4. Disposition: She is orthopedically okay for discharge at any time. I need to see her back 2 weeks out from her surgery date. Any orthopedic questions can be directed to me at [phone].
[2018-11-28] MEDS ORDERED: SODIUM CHLORIDE 0.9% 250 ML IV PRN (17:51)
--- NOTE | 2018-11-28 17:54 | Hospitalist Progress Note ---
Date of Service November 28, 2018 Assessment & Plan (1) Intertrochanteric fracture of left femur: POD #2 for IM nailing of left femoral neck. Slowly improving. Appreciate Ortho recommendations Aspirin BID for DVT prophylaxis H&H stable. Continue physical and occupational therapy. Patient most likely needs to go to SNF since she lives alone. (2) Acute blood loss as cause of postoperative anemia: H&H slightly dropped to 7.7. Since it is below 8 we will give another blood PRBC transfusion. It was due to acute blood loss during the surgery (3) Fall: Ongoing PT/OT. Patient will need placement to rehab after discharge (4) HTN (hypertension): BP normal today follow closely, metoprolol with hold parameters (5) Internal carotid artery stenosis: continue antiplatelets (6) Vitamin D deficiency: continue supplementation (7) Esophageal reflux: continue PPI (8) Chronic obstructive pulmonary disease: breathing stable, no wheezing (9) Aneurysm of infrarenal abdominal aorta: stable, follow as outpatient (10) Hyperlipidemia: (11) Depression: (12) History of hip replacement, total: Subjective She is seen and examined at the bedside. Slowly improving. Ongoing physical therapy. Status post day 2 left long trochanteric nailing of left intratrochanteric/subtrochanteric femur fracture. H&H slighthy lower today 7.7. status post transfusion 1 day ago. Patient denies fever chills chest pain shortness of breath abdominal pain frequency urgency. P.o. intake improving. Regular BMs. Review of Systems Review of Systems: All systems reviewed & are unremarkable except as noted in HPI & below Physical Exam Constitutional: WD/WN, vitals as above well developed and + frail appearing Eyes: PERRL, conjunctivae normal, anicteric sclerae ENMT: external ear and nose normal, oropharynx normal Neck: trachea midline, no thyromegaly Respiratory: normal respiratory effort, lungs clear to auscultation Cardiovascular: RRR, no murmur, no edema Vessels: dorsalis pedis pulses present Gastrointestinal (Abdomen): normal bowel sounds, soft, nontender, no hepatosplenomegaly Musculoskeletal: no cyanosis or clubbing, extremities motor strength 5/5 Skin: no rashes, warm and dry Neurologic: patellar DTR's 2+ bilat, sensation intact Psychiatric: A+Ox3, euthymic affect Lymphatic: no cervical or axillary lymphadenopathy Results & Data Vital Signs (Past 12 Hours) Vital Signs Temp Pulse Resp BP Pulse Ox 11/28/18 16:31 37 C 83 16 118/74 96 11/28/18 09:32 88 121/65 11/28/18 07:33 37.1 C 88 16 135/68 90 PG Care Time/CCT Total # of Minutes Spent Total Time Spent with Patient: Total time spent is greater than 50% in coordination of care (as documented) at patient's floor/unit and/or counseling patient: (1) Intertrochanteric fracture of left femur Encounter type: initial encounter Fracture alignment: displaced Fracture type: closed Qualified Code(s): S72.142A - Displaced intertrochanteric fracture of left femur, initial encounter for closed fracture
[2018-11-28] MEDS: OXYCODONE HCL IR 5 MG TAB (IMMEDIATE RELEASE) PO PRN (20:50)
[2018-11-28] MEDS: CEROVITE ADV FORMULA TAB PO SCH (21:59)
[2018-11-28] MEDS: CHOLECALCIFEROL 1,000 UNITS TAB PO SCH (21:59)
[2018-11-28] MEDS: SIMVASTATIN 20 MG TAB PO SCH (21:59)
[2018-11-29] MEDS: SODIUM CHLORIDE 0.9% 500 ML IV SCH ×2 (02:27→08:36)
[2018-11-29 06:10] LABS: Basophils # (auto) 0.03 K/uL (0-0.2); Basophils % (auto) 0.5 %; Eosinophils # (auto) 0.23 K/uL (0-0.5); Eosinophils % (auto) 3.5 %; Hematocrit (blood only) 25.9 % (37-47); Hemoglobin 8.4 g/dL (12.0-16.0); Lymphocytes # (auto) 1.54 K/uL (1.2-3.4); Lymphocytes % (auto) 23.3 %; Mean Corpuscular Hgb Conc 32.4 g/dL (32-36); Mean Corpuscular Volume 89.3 fL (80-100); Mean Platelet Volume 8.9 fL (7.4-10.4); Monocytes # (auto) 0.77 K/uL (0.11-0.59); Monocytes % (auto) 11.7 %; Neutrophils # (auto) 4.03 K/uL (1.4-6.5); Platelet Count 230 K/uL (130-400); RDW Coefficient of Variation 14.9 % (11.5-14.5); RDW Standard Deviation 49.1 fL (36.4-46.3)
[2018-11-29 06:46] LABS: Albumin Level 2.1 gm/dl (3.4-5.0); BUN Creatinine Ratio 19.7 (10-20); Calcium 8.2 mg/dl (8.5-10.1); Potassium 4.2 mmol/L (3.5-5.1)
[2018-11-29 06:49] LABS: Albumin Globulin Ratio 0.6 (0.9-2); Bilirubin,Total 0.7 mg/dl (0.2-1); Globulin 3.5 gm/dl (2.5-4.0); Total Protein 5.6 gm/dl (6.4-8.2)
[2018-11-29] MEDS: CALCIUM 600MG + VIT D 400 IU TAB PO SCH (08:39)
[2018-11-29] MEDS: ASPIRIN 81 MG ECTAB PO SCH ×2 (08:39→20:40)
[2018-11-29] MEDS: GABAPENTIN 400 MG CAP PO SCH ×3 (08:39→20:40)
[2018-11-29] MEDS: METOPROLOL SUCC 25MG EXT REL TAB PO SCH (08:39)
[2018-11-29] MEDS: BuPROPion SR 150 MG TABCR PO SCH (08:40)
[2018-11-29] MEDS: SERTRALINE HCL 100 MG TABLET PO SCH (08:40)
[2018-11-29] MEDS: OXYCODONE HCL IR 5 MG TAB (IMMEDIATE RELEASE) PO PRN ×2 (09:16→16:37)
[2018-11-29] MEDS ORDERED: FUROSEMIDE 20 MG in SYRINGE 0 ML IV ONE (09:40)
--- NOTE | 2018-11-29 11:05 | XRay Report ---
XR chest 1V portable CLINICAL HISTORY: hypoxia dyspnea COMPARISON STUDY: 11/24/2018 FINDINGS: Mild stable cardiac megaly. Interstitial prominence considered chronic. No well-defined nodularity on the current study. IMPRESSION: Mild stable cardiomegaly. Chronic interstitial change. No acute process. The above report was generated using voice recognition software. It may contain grammatical, syntax or spelling errors. Electronically signed by: Ronnell Marvin M.D. 11/29/2018 11:03 AM
--- NOTE | 2018-11-29 12:08 | Progress Note ---
DATE: 11/29/2018 SUBJECTIVE: An 87-year-old white female now postop day 4 from IM nailing of a left intertrochanteric/subtrochanteric fracture. She is doing okay. She continues to just have pain with weightbearing and attempted movement. No pain at all while resting. No chest pain or shortness of breath. Not feeling dizzy or lightheaded. OBJECTIVE: VITAL SIGNS: Temperature 36.6. Vital signs stable. GENERAL: Physical examination shows a pleasant elderly female. She is sitting up at her bedside chair, looks pretty comfortable. EXTREMITIES: Examination of left hip reveals the dressing to be clean, dry and intact. She has some usgz-pc-yedzsdll swelling. No drainage. She can dorsiflex and plantarflex her foot appropriately. Leg lengths are equal. LABORATORY DATA: Hemoglobin 8.4. Hematocrit 25.9. Electrolytes are stable. ASSESSMENT: An 87-year-old white female postop day 4 from IM nailing of a left intertrochanteric/subtrochanteric fracture, doing reasonably well. Having pain with movement, which is not unexpected. Wound looks good. Some moderate swelling which is also expected. PLAN: 1. DVT prophylaxis including thigh-high TEDs, SCDs, and aspirin twice a day for 6 weeks. 2. PT/OT. She can weightbear as tolerated in the left lower extremity. 3. Medical management as per the medicine service. 4. Disposition: She is orthopedically okay for discharge any time medically stable. I am going to see her back 2 weeks out from surgery date. Any orthopedic questions can be directed to me at [phone].
[2018-11-29] MEDS: ACETAMINOPHEN 325 MG TAB PO PRN (12:58)
--- NOTE | 2018-11-29 13:32 | Hospitalist Progress Note ---
Date of Service November 29, 2018 Assessment & Plan (1) Intertrochanteric fracture of left femur: POD #4 for IM nailing of left femoral neck. Improving, appreciate Ortho recommendations-stable for discharge from orthopedic standpoint Aspirin BID for DVT prophylaxis x6 weeks, SCDs, thigh-high teds Hemoglobin with drop requiring 2 units of PRBCs during this hospitalization- hemoglobin improved today -Continue physical and occupational therapy -Plan is for discharge to acute rehab when medically stable -Will need follow-up with orthopedics after discharge (2) Acute blood loss as cause of postoperative anemia: Hemoglobin dropped to 7.7. This was due to acute blood loss during the surgery -Hemoglobin is now improved back up to 8.4 -Follow CBC again in the morning (3) Acute respiratory failure with hypoxia: Continues on 2 L nasal cannula with pulse ox in the low 90% range She has received 2 units of PRBCs this admission as well as IV fluids She was anemic with hemoglobin of 7 and now up to 8.4-likely combination of some mild volume overload as well as anemia as cause of her mild hypoxia Chest x-ray on 11/29 with interstitial thickening and changes, but I do believe she has rales on exam and likely some component of hypervolemia -Give Lasix 20 mg IV x1 now -Monitor urine output, daily weights -We will try to wean off of O2-discussed with nursing -I would like to keep her here until her volume status is improved (4) Fall: Mechanical fall leading to left femur fracture as above -Ongoing PT/OT. Patient will need placement to rehab after discharge (5) HTN (hypertension): BP acceptable -Continue Toprol-XL 25 mg daily -Giving IV Lasix x1 as above (6) Internal carotid artery stenosis: continue aspirin, statin (7) Vitamin D deficiency: continue supplementation (8) Esophageal reflux: continue PPI (9) Chronic obstructive pulmonary disease: breathing stable, no wheezing but with hypoxia and rales as above -No need for bronchodilators at this point (10) Aneurysm of infrarenal abdominal aorta: stable, 3 x 4 cm on recent imaging -Follow as outpatient (11) Hyperlipidemia: Continue statin (12) Depression: Stable -Continue sertraline and bupropion (13) History of hip replacement, total: (14) DVT prophylaxis: Aspirin twice daily, SCDs, DEWAYNE hose Disposition-not medically stable for discharge at this time due to hypoxia and hypervolemia-giving IV Lasix as above Is medically accepted at [facility] for rehab-hopeful for discharge tomorrow Subjective Patient has some pain in the hip but is better controlled today, she is taking Tylenol for that. She remains on oxygen since her surgery and is positive on her fluid balance. She received another transfusion yesterday of 1 unit of PRBCs. Her pulse ox on the 2 L does seem to be a bit lower than previously. She denies any shortness of breath. She reports a mild nonproductive cough. Denies chest pain or lightheadedness. Denies abdominal pain or nausea. She is eating. She is making quite a bit of urine since getting IV Lasix this morning. Review of Systems Review of Systems: All systems reviewed & are unremarkable except as noted in HPI & below Physical Exam Constitutional: WD/WN, vitals as above Eyes: + anicteric sclerae Neck: trachea midline, no thyromegaly Respiratory: normal respiratory effort; no labored breathing Auscultation: + crackles (Bibasilar); no rhonchi and no wheezes Cardiovascular: RRR, no murmur, no edema Gastrointestinal (Abdomen): normal bowel sounds, soft, nontender, no hepatosplenomegaly Musculoskeletal: Extremities: + extremities abnormal to inspection (Left hip with dressing over lateral hip and lateral distal femur, mild pitting edema of the thigh), no cyanosis and no clubbing Skin: no rashes, warm and dry Neurologic: moves all extremities and awake; no focal motor deficits Psychiatric: A+Ox3, euthymic affect Results & Data Vital Signs (Past 12 Hours) Vital Signs Temp Pulse Resp BP Pulse Ox Pulse Ox 11/29/18 08:37 83 155/75 H 11/29/18 07:34 36.6 C 81 16 155/73 H 92 11/29/18 04:44 91 11/29/18 04:03 36.7 C 79 16 129/72 91 Laboratory Results 11/29/18 11/29/18 11/28/18 Range/Units 05:58 05:58 18:07 WBC 6.60 (4.8-10.8) K/uL RBC 2.90 L (4.2-5.4) M/uL Hgb 8.4 L (12.0-16.0) g/dL Hct 25.9 L (37-47) % MCV 89.3 (80-100) fL MCH 29.0 (25-34) pg MCHC 32.4 (32-36) g/dL RDW Std Deviation 49.1 H (36.4-46.3) fL RDW Coeff of Martine 14.9 H (11.5-14.5) % Plt Count 230 (130-400) K/uL MPV 8.9 (7.4-10.4) fL Immature Gran % (Auto) 0.0 % Neut % (Auto) 61.0 % Lymph % (Auto) 23.3 % [place] % (Auto) 11.7 % Eos % (Auto) 3.5 % Baso % (Auto) 0.5 % Immature Gran # (Auto) 0.00 (0.00-0.02) K/uL Neut # (Auto) 4.03 (1.4-6.5) K/uL Lymph # (Auto) 1.54 (1.2-3.4) K/uL [place] # (Auto) 0.77 H (0.11-0.59) K/uL Eos # (Auto) 0.23 (0-0.5) K/uL Baso # (Auto) 0.03 (0-0.2) K/uL Sodium 140 (136-145) mmol/L Potassium 4.2 (3.5-5.1) mmol/L Chloride 107 (98-107) mmol/L Carbon Dioxide 29 (21-32) mmol/L Anion Gap 4.0 (3-11) BUN 18 (7-18) mg/dl Creatinine 0.93 (0.6-1.2) mg/dl Est Cr Clr Drug Dosing 43.0 ml/min Est GFR ( Amer) 65.0 Est GFR (Non-Af Amer) 56.0 BUN/Creatinine Ratio 19.7 (10-20) Glucose 105 H (70-99) mg/dl Calcium 8.2 L (8.5-10.1) mg/dl Total Bilirubin 0.7 (0.2-1) mg/dl AST 28 (15-37) U/L ALT 16 (12-78) U/L Alkaline Phosphatase 62 (45-117) U/L Total Protein 5.6 L (6.4-8.2) gm/dl Albumin 2.1 L (3.4-5.0) gm/dl Globulin 3.5 (2.5-4.0) gm/dl Albumin/Globulin Ratio 0.6 L (0.9-2) Blood Type B Positive Antibody Screen NEGATIVE Crossmatch See Detail Diagnostic Findings Chest x-ray image personally reviewed by me and agree with following report: XR chest 1V portable CLINICAL HISTORY: hypoxia dyspnea COMPARISON STUDY: 11/24/2018 FINDINGS: Mild stable cardiac megaly. Interstitial prominence considered chronic. No well-defined nodularity on the current study. IMPRESSION: Mild stable cardiomegaly. Chronic interstitial change. No acute process. PG Care Time/CCT Total # of Minutes Spent Total Time Spent with Patient: Total time spent is greater than 50% in coordination of care (as documented) at patient's floor/unit and/or counseling patient: (1) Intertrochanteric fracture of left femur Encounter type: initial encounter Fracture alignment: displaced Fracture type: closed Qualified Code(s): S72.142A - Displaced intertrochanteric fracture of left femur, initial encounter for closed fracture
[2018-11-29] MEDS: CHOLECALCIFEROL 1,000 UNITS TAB PO SCH (20:40)
[2018-11-29] MEDS: CEROVITE ADV FORMULA TAB PO SCH (20:40)
[2018-11-29] MEDS: SIMVASTATIN 20 MG TAB PO SCH (20:43)
[2018-11-30 05:33] LABS: Basophils # (auto) 0.04 K/uL (0-0.2); Basophils % (auto) 0.6 %; Eosinophils # (auto) 0.26 K/uL (0-0.5); Hematocrit (blood only) 28.5 % (37-47); Hemoglobin 9.3 g/dL (12.0-16.0); Lymphocytes # (auto) 1.59 K/uL (1.2-3.4); Lymphocytes % (auto) 24.7 %; Mean Corpuscular Hemoglobin 29.7 pg (25-34); Mean Corpuscular Hgb Conc 32.6 g/dL (32-36); Mean Corpuscular Volume 91.1 fL (80-100); Mean Platelet Volume 9.3 fL (7.4-10.4); Monocytes # (auto) 0.78 K/uL (0.11-0.59); Monocytes % (auto) 12.1 %; Neutrophils # (auto) 3.76 K/uL (1.4-6.5); Neutrophils % (auto) 58.6 %; Platelet Count 282 K/uL (130-400); RDW Coefficient of Variation 14.9 % (11.5-14.5); Red Blood Count 3.13 M/uL (4.2-5.4); White Blood Count 6.43 K/uL (4.8-10.8)
[2018-11-30 06:00] LABS: BUN Creatinine Ratio 20.6 (10-20); Calcium 8.5 mg/dl (8.5-10.1); Creatinine Clr Calc Pharmacy 40.4 ml/min; Est GFR (African American) 60.2; Magnesium 1.8 mg/dl (1.8-2.4); Potassium 3.9 mmol/L (3.5-5.1)
[2018-11-30] MEDS ORDERED: FUROSEMIDE 20 MG TAB PO SCH (09:00)
[2018-11-30] MEDS: METOPROLOL SUCC 25MG EXT REL TAB PO SCH (09:26)
[2018-11-30] MEDS: GABAPENTIN 400 MG CAP PO SCH (09:26)
[2018-11-30] MEDS: CALCIUM 600MG + VIT D 400 IU TAB PO SCH (09:26)
[2018-11-30] MEDS: ASPIRIN 81 MG ECTAB PO SCH (09:26)
[2018-11-30] MEDS: BuPROPion SR 150 MG TABCR PO SCH (09:27)
[2018-11-30] MEDS: SERTRALINE HCL 100 MG TABLET PO SCH (09:27)
[2018-11-30] MEDS: OXYCODONE HCL IR 5 MG TAB (IMMEDIATE RELEASE) PO PRN (09:30)
[2018-11-30] MEDS: ACETAMINOPHEN 325 MG TAB PO PRN (11:18)
--- NOTE | 2018-11-30 12:48 | Discharge Summary ---
Date of Service November 30, 2018 Admission HPI Per Admitting Provider 87-year-old female with history of hypertension, hyperlipidemia, aneurysm infrarenal abdominal aorta, peripheral artery disease, ICA stenosis,, COPD, depression, GERD, osteoarthritis, chronic back pain status post spinal fusion surgery in 2013, right hip replacement presents status post fall with left thigh pain. Patient reports getting up quickly this morning to go to the bathroom without using walker and fell to the floor. Patient had immediate severe left thigh pain and could not move or get up. Daughter called ambulance and she was brought to the emergency department. Otherwise denies any headache, lig htheadedness, chest pain, shortness of breath, fever, chills, abdominal pain, nausea, vomiting, diarrhea, constipation, dysuria. ED: Found to have acute comminuted mildly impacted and angulated inter trochanteric fracture of left femur. Given normal saline 150 cc/h and morphine 2 mg IV and Tylenol 1 g IV. ED resident contacted Dr. Figueroa and spoke to his nurse. Of note: Patient does not want to be seen by Dr. Corley Social history: Smoked cigarettes for 30 years 1 to 1.5 pack/day. Principal Diagnosis Left femur fracture Discharge Exam Constitutional WD/WN, vitals as above Eyes + anicteric sclerae Neck trachea midline, no thyromegaly Respiratory normal respiratory effort, lungs clear to auscultation no labored breathing Auscultation: no crackles Cardiovascular RRR, no murmur, no edema Gastrointestinal (Abdomen) normal bowel sounds, soft, nontender, no hepatosplenomegaly Musculoskeletal Extremities: + extremities abnormal to inspection (Left hip with dressing over lateral hip and lateral distal femur, mild pitting edema of the thigh), no cyanosis and no clubbing Skin no rashes, warm and dry Neurologic moves all extremities and awake; no focal motor deficits Psychiatric A+Ox3, euthymic affect Discharge Data Allergies Allergy/AdvReac Type Severity Reaction Status Date / Time Cephalosporins Allergy Unknown HIVES/RASH Verified 11/24/18 10:56 cephalexin [From Keflex] Allergy Unknown Verified 11/24/18 10:56 celecoxib AdvReac Unknown upset Verified 11/24/18 10:56 stomach venlafaxine AdvReac Unknown GI UPSET Verified 11/24/18 10:56 Consultations 11/24/18 14:09 ED Decision to Admit Stat 11/24/18 16:11 Consult Orthopedic Surgery Stat 11/24/18 22:16 Consult Case Management - Discharge Planning Routine 11/25/18 10:04 Consult Case Management - Discharge Planning Routine Procedures Performed Operation Date: 11/25/18 07:30 Actual Procedures p Left Femur Fracture Trochanteric Nailing(Left) - Ishaan Figueroa MD Ordered Studies 11/25/18 07:00 FL femur LT 2V Routine FL fluoroscopy <1hr Routine CXR x 2 Femur xray Hip/pelvis xray Hospital Course (1) Intertrochanteric fracture of left femur: POD #5 for IM nailing of left femoral neck. Improving, appreciate Ortho recommendations-stable for discharge from orthopedic standpoint Aspirin BID for DVT prophylaxis x6 weeks, SCDs, thigh-high teds Hemoglobin with drop requiring 2 units of PRBCs during this hospitalization- hemoglobin improved now to 9.3 -Continue physical and occupational therapy -Plan is for discharge to acute rehab today -Will need follow-up with orthopedics after discharge (2) Acute blood loss as cause of postoperative anemia: Hemoglobin dropped to 7.7. This was due to acute blood loss during the surgery -Hemoglobin is now improved back up to 9.3 (3) Acute respiratory failure with hypoxia: Was persistently requiring 2 L nasal cannula with pulse ox in the low 90% range for several days She has received 2 units of PRBCs this admission as well as IV fluids She was anemic with hemoglobin of 7 and now up to 9.3 -likely combination of some mild volume overload as well as anemia as cause of her mild hypoxia Chest x-ray on 11/29 with interstitial thickening and changes, and had rales on exam and likely some component of hypervolemia Now much improved after giving Lasix 20 mg IV x1 and then starting lasix 20mg po qAM Is now weaned off O2, rales have resolved -Monitor urine output, daily weights -stable for dc, would only give po lasix for a few more days or week Discussed case with Dr. Johnson from [facility] (4) Fall: Mechanical fall leading to left femur fracture as above -Ongoing PT/OT. Patient will need placement to rehab after discharge (5) HTN (hypertension): BP acceptable -Continue Toprol-XL 25 mg daily -Giving Lasix as above (6) Internal carotid artery stenosis: continue aspirin, statin (7) Vitamin D deficiency: continue supplementation (8) Esophageal reflux: continue PPI (9) Chronic obstructive pulmonary disease: breathing stable, no wheezing but with hypoxia and rales as above which are now resolved and secondary to hypervolemia -No need for bronchodilators at this point (10) Aneurysm of infrarenal abdominal aorta: stable, 3 x 4 cm on recent imaging -Follow as outpatient (11) Hyperlipidemia: Continue statin (12) Depression: Stable -Continue sertraline and bupropion (13) History of hip replacement, total: (14) DVT prophylaxis: Aspirin twice daily, SCDs, DEWAYNE hose Disposition-is now medically stable for discharge Is medically accepted at [facility] for rehab Total Time Total Time Spent Total Time Spent (In Minutes): >30 min Total Time Includes: Examination of the Patient, Discharge Planning and Medication Reconciliation Discharge Plan Discharge Items Patient Disposition: Transfer Inpatient Rehab Fac Reason For Visit: LEFT FEMUR FRACTURE,S/P FALL Discharge Diagnosis: IM Nailing of Left Hip Fracture Condition on Discharge: Good Activity: Per Instructions section Activity Comment: No restrictions Weightbearing: Full weightbearing Non-emergency contact: Primary Care Provider and Surgeon Call non-emergency contact if: you have any medication questions, your symptoms worsen, your pain is not controlled, your pain is worsening, your pain is unusual for you, your pain is concerning for you, you have a fever and your temperature is above 101 Follow-up/Referrals: Demetris Garcia MD [Primary Care Provider] - Ishaan Figueroa MD [Physician] - (Follow-up with Orthopedics 2 weeks from surgery date.) Diet: Heart Healthy Addtl Attending Provider Instructions: Elena had some mild volume overload from being transfused with PRBCs and was requiring oxygen. She is now weaned off oxygen after diuresis with lasix. Please continue po lasix for a few more days and then stop once euvolemic. 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 Pending Studies at Discharge: No Stand-Alone Forms: My [facility] Skilled Items Patient informed of condition?: Yes DNR: No Discharge Level of Care: Skilled Communicable Disease: No Discharge Prognosis: Stable Lines: None Urinary Catheter: No Medications and DC Order Prescriptions: New acetaminophen [Mapap (acetaminophen)] 325 mg Tablet 650 mg PO Q4H PRN (Reason: pain) Qty: 30 RF: 0 aspirin [Ecotrin Low Strength] 81 mg Tablet,Delayed Release (Dr/Ec) 81 mg PO BID Qty: 70 RF: 0 oxycodone 5 mg Tablet 5 mg PO Q6 PRN (Reason: severe pain) Qty: 14 RF: 0 Continued bupropion HCl [Wellbutrin SR] 150 mg tablet sustained-release 12 hr 150 mg PO QAM Qty: 90 RF: 3 metoprolol succinate 25 mg tablet extended release 24 hr 25 mg PO DAILY Qty: 90 RF: 3 sertraline [Zoloft] 100 mg tablet 150 mg PO DAILY Qty: 135 RF: 1 simvastatin [Zocor] 20 mg tablet 20 mg PO PM Qty: 90 RF: 0 cholecalciferol (vitamin D3) [Dialyvite Vitamin D] 5,000 unit capsule 5,000 unit PO PM RF: 0 Citracal Plus Magnesium 250-40-125 mg-mg-unit tablet 2 tab PO DAILY RF: 0 gabapentin 400 mg capsule 400 mg PO TID RF: 0 Ocuvite Eye Health 50 mg-15 unit- 4.5 mg-2.5 mg Tablet,Chewable 2 tab PO PM RF: 0 Discontinued tramadol [Ultram] 50 mg tablet 50 mg PO TID Qty: 90 RF: 0 aspirin [Aspir-81] 81 mg Tablet,Delayed Release (Dr/Ec) 81 mg PO HS RF: 0 acetaminophen [Tylenol] 325 mg Tablet 325 mg PO TID RF: 0 tramadol 50 mg tablet 50 mg PO QID PRN (Reason: pain) Qty: 14 RF: 0 No Action omeprazole 20 mg capsule,delayed release(DR/EC) 20 mg PO QAM Qty: 90 RF: 3 Discharge Orders: Discharge Order (Routine); Ordered 11/30/18 Ordered By: Lupe Gallegos/Other Patient Handouts: Surgery Prevent DVT After Admission Data Admit Date/Time: 11/24/18 14:47 Attending Provider: Lupe Mcmillan Admit Provider: Tung Virgen Primary Care Provider: Demetris Garcia Other Providers: Nate James ; Ishaan Figueroa ; [facility] ; Tung Virgen ; Emma Morris Other Interventions: Discharge Summary Assessment (RN) Last Done: 11/30/18 12:48 DC Date/Time DO NOT enter until pt leaves facility: 11/30/18 13:45
== END 2018-11-30 13:45 | DRG 480 ==
LOC: ED 10:17 → 3W 14:47 → SUATTDRO 14:47 → 3W 15:45 → 3N 11-28 03:21

== ENCOUNTER 2020-10-24 20:10 | Inpatient (IN) ==
--- NOTE | 2020-10-24 20:38 | Emergency Department Note ---
History of Present Illness General Chief complaint: Fall Stated complaint: Fall Time Seen by Provider: 10/24/20 20:19 Source: patient Mode of arrival: EMS Limitations: no limitations History of Present Illness Maximum Pain Intensity: 1 This is an 89-year-old female who presents to the emergency department for evaluation of a fall and left hip pain. Patient states that she was sitting at the table and got up to water a plant. She walked around her walker and lost her balance. She states that she was not dizzy or lightheaded when this occurred. She is not sure why she lost her balance. She landed onto her left side. She does not believe that she hit her head. She does not take any anticoagulants. Patient does report some pain in the left hip/pelvis. She sustained a small abrasion to the left elbow. She denies any other injuries. She does report a history of a left hip fracture with surgery performed by Dr. Figueroa. She has also had back surgery and a right hip fracture. 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 Home Medications Medication Instructions Recorded Confirmed Type cholecalciferol (vitamin D3) 125 5,000 unit PO PM cap 07/18/18 10/24/20 History mcg (5,000 unit) capsule (Dialyvite Vitamin D) calcium 2 tab PO DAILY tab 09/07/18 10/24/20 History [id number]-lhm-[id number]-Im-gtdgyg-Uz-boron 250 mg-40 mg-125 unit tablet (Citracal-D3 Plus Magnesium) acetaminophen 325 mg tablet (Mapap 650 mg PO Q4H PRN #30 tab 11/30/18 10/24/20 Rx (acetaminophen)) albuterol sulfate 90 mcg/actuation 2 puff INHALATION Q6 PRN 03/19/20 10/24/20 History aerosol inhaler aspirin 81 mg tablet,delayed 81 mg PO DAILY tab 04/03/20 10/24/20 History release (Ecotrin Low Strength) mupirocin 2 % topical ointment 1 applic TOPICAL BID #22 g 04/03/20 10/24/20 Rx metoprolol succinate 25 mg 25 mg PO DAILY #90 tab 04/08/20 10/24/20 Rx tablet,extended release 24 hr gabapentin 400 mg capsule 400 mg PO TID #90 cap 04/15/20 10/24/20 Rx simvastatin 20 mg tablet (Zocor) 20 mg PO QPM #90 tab 04/22/20 10/24/20 Rx bupropion HCl 150 mg tablet,12 hr 150 mg PO QAM #90 ea 06/23/20 10/24/20 Rx sustained-release (Wellbutrin SR) ferrous sulfate 325 mg (65 mg 325 mg PO DAILY 08/20/20 10/24/20 History iron) tablet gabapentin 300 mg capsule 300 mg PO TID #270 cap 10/02/20 10/24/20 Rx sertraline 100 mg tablet (Zoloft) 150 mg PO DAILY #135 tab 10/02/20 10/24/20 Rx tramadol 50 mg tablet 50 mg PO TID PRN #90 tab 10/16/20 10/24/20 Rx omeprazole 20 mg capsule,delayed 20 mg PO QAM 10/24/20 10/24/20 History release Allergies Allergy/AdvReac Type Severity Reaction Status Date / Time cephalexin [From Keflex] Allergy Intermediate Unknown Verified 10/25/20 18:11 Cephalosporins Allergy Intermediate HIVES/RASH Verified 10/25/20 18:11 celecoxib AdvReac Mild upset Verified 10/25/20 18:11 stomach venlafaxine AdvReac Mild GI UPSET Verified 10/25/20 18:11 Past Med/Surg History Medical History (Updated 10/25/20 @ 22:34 by Sima Cai PA-C) Abnormal CT scan, lumbar spine Aneurysm of infrarenal abdominal aorta Chronic constipation Chronic obstructive pulmonary disease Chronic osteoarthritis Chronic pain syndrome Chronic right hip pain Collagenous colitis Decreased hearing Esophageal reflux Internal carotid artery stenosis Macular degeneration Solitary thyroid nodule Thrombosis of left external carotid artery Vitamin D deficiency Surgical History H/O hysterectomy with oophorectomy H/O ligation of vein with stripping History of bladder surgery bladder tuck History of bunionectomy of both great toes History of cataract surgery bilateral History of hip replacement, total History of intravascular stent placement Dr. Alas History of lumbar fusion History of total right hip arthroplasty Hx of appendectomy Hx of colonoscopy Family History Mother Acute myocardial infarction Myocardial infarction Father Stroke syndrome Hypertension Brother Lung cancer Acute myocardial infarction Sister Carcinoma of pancreas Pancreatic cancer Aunt Breast cancer Denies family history of Ovarian cancer Prostate cancer Colorectal cancer Social History Smoking Status: Former smoker Second Hand Exposure: No; Hx Alcohol Use: No Hx Substance Use: No Preferred Language: Greenlandic Communication Ability: Effective Visual Impairment: Limited Hearing Ability: Use of Hearing Aid Console Attendant Required: No Beliefs That Will Affect Care: None marital status: 6 Current Living Situation: Alone current occupational status: retired How many Children do You have: 8 Feels Safe at Home: Yes Childhood Exposure to Second-Hand Smoke: Yes caffeine: Yes Dental Care, Regularly: No Physical Activity Frequency: Does not Exercise Seatbelt Use: always Sunscreen Use: No Assistive Devices: Walker Review of Systems A total of 10 systems reviewed and were otherwise negative Physical Exam Vital Signs Vital Signs - 24 hr 10/24/20 22:30 10/24/20 22:44 Pulse Rate 62 Pulse Rate [Apical] 62 Pulse Rate from SpO2 Sensor 62 Respiratory Rate 19 20 Blood Pressure 176/77 H Blood Pressure [Left Arm] 176/77 H Blood Pressure Mean 110 Blood Pressure Mean [Left Arm] 110 Pulse Oximetry 94 94 Oxygen Delivery Method Nasal Cannula VITALS: Vitals are noted on the nurse's note and reviewed by myself. GENERAL: This is an 89-year-old female, in no acute distress, well-developed well-nourished. SKIN: Small abrasion noted to the left elbow. No lacerations. HEAD: Normocephalic atraumatic. EARS: External auditory canals clear, tympanic membranes pearly waite without erythema or effusion bilaterally. EYES: Pupils equal round and reactive to light and accommodation. Extraocular movements intact. MOUTH: Mucous membranes slightly dry. NECK: Supple without nuchal rigidity. Cervical spine is nontender. HEART: Regular rate and rhythm without murmurs gallops or rubs. LUNGS: Clear to auscultation bilaterally without wheezes, rales or rhonchi. ABDOMEN: Positive bowel sounds x 4. Soft, nontender to palpation. No guarding or rebound tenderness. MUSCULOSKELETAL: No obvious deformity. There is some generalized tenderness to the left hip and pelvis. NEURO: Patient was alert and oriented to person place and time. Distal sensation intact. Course Administered Medications Discontinued Medications Acetaminophen (Acetaminophen 325 Mg Tab) 650 mg PO Q4H PRN PRN Reason: pain/fever Stop: 11/24/20 01:58 Last Admin: 10/29/20 14:35 Dose: 650 mg Documented by: [id number] Admin: 10/25/20 04:41 Dose: 650 mg Documented by: [id number] Aspirin (Aspirin 81 Mg Ectab) 81 mg PO DAILY [facility] Stop: 11/24/20 08:59 Last Admin: 10/29/20 08:45 Dose: 81 mg Documented by: [id number] Admin: 10/28/20 08:37 Dose: 81 mg Documented by: [id number] Admin: 10/27/20 08:54 Dose: 81 mg Documented by: [id number] Admin: 10/26/20 09:20 Dose: 81 mg Documented by: [id number] Admin: 10/25/20 08:36 Dose: 81 mg Documented by: [id number] Bupropion HCl (Bupropion Sr 150 Mg Tabcr) 150 mg PO QAM [facility] Stop: 11/24/20 08:59 Last Admin: 10/29/20 08:45 Dose: 150 mg Documented by: [id number] Admin: 10/28/20 08:36 Dose: 150 mg Documented by: [id number] Admin: 10/27/20 08:53 Dose: 150 mg Documented by: [id number] Admin: 10/26/20 09:21 Dose: 150 mg Documented by: [id number] Admin: 10/25/20 08:36 Dose: 150 mg Documented by: [id number] Nystatin 30 ml/ Dexamethasone 3.75 mg/ Diphenhydramine HCl 300 mg/ Sucrose 45 ml/Microcrystalline Cellulose 45 ml/ BARCODE IDENTIFIER 1 ea 0 ml PO Q4H PRN PRN Reason: Dry mouth/tongue residue Stop: 11/27/20 14:17 Last Admin: 10/29/20 08:47 Dose: 5 ml Documented by: [id number] Admin: 10/28/20 17:06 Dose: 5 ml Documented by: [id number] Enoxaparin Sodium (Enoxaparin Inj 30 Mg/0.3 Ml Syr) 30 mg SQ QAM [facility] Stop: 11/25/20 08:59 Last Admin: 10/29/20 08:44 Dose: 30 mg Documented by: [id number] Admin: 10/28/20 08:38 Dose: 30 mg Documented by: [id number] Admin: 10/27/20 09:07 Dose: 30 mg Documented by: [id number] Admin: 10/26/20 09:34 Dose: 30 mg Documented by: [id number] Fentanyl Citrate (Fentanyl Citrate 100 Mcg/2 Ml Vial) 50 mcg IV NOW STA Stop: 10/24/20 23:10 Last Admin: 10/24/20 23:14 Dose: 50 mcg Documented by: [id number] Ferrous Sulfate (Ferrous Sulfate 325 Mg Tab) 325 mg PO DAILY [facility] Stop: 11/24/20 08:59 Last Admin: 10/29/20 08:45 Dose: 325 mg Documented by: [id number] Admin: 10/28/20 08:37 Dose: 325 mg Documented by: [id number] Admin: 10/27/20 08:54 Dose: 325 mg Documented by: [id number] Admin: 10/26/20 09:22 Dose: 325 mg Documented by: [id number] Admin: 10/25/20 08:36 Dose: 325 mg Documented by: [id number] Gabapentin (Gabapentin 400 Mg Cap) 400 mg PO TID [facility] Stop: 11/24/20 08:59 Last Admin: 10/29/20 13:45 Dose: 400 mg Documented by: [id number] Admin: 10/29/20 08:46 Dose: 400 mg Documented by: [id number] Admin: 10/28/20 20:57 Dose: 400 mg Documented by: [id number] Admin: 10/28/20 13:46 Dose: 400 mg Documented by: [id number] Admin: 10/28/20 08:37 Dose: 400 mg Documented by: [id number] Admin: 10/27/20 20:16 Dose: 400 mg Documented by: [id number] Admin: 10/27/20 15:43 Dose: 400 mg Documented by: [id number] Admin: 10/27/20 09:07 Dose: 400 mg Documented by: [id number] Admin: 10/26/20 20:34 Dose: 400 mg Documented by: [id number] Admin: 10/26/20 15:14 Dose: 400 mg Documented by: [id number] Admin: 10/26/20 09:20 Dose: 400 mg Documented by: [id number] Admin: 10/25/20 20:40 Dose: 400 mg Documented by: [id number] Admin: 10/25/20 14:23 Dose: 400 mg Documented by: [id number] Admin: 10/25/20 08:35 Dose: 400 mg Documented by: [id number] Gabapentin (Gabapentin 300 Mg Cap) 300 mg PO TID [facility] Stop: 11/24/20 08:59 Last Admin: 10/29/20 13:45 Dose: 300 mg Documented by: [id number] Admin: 10/29/20 08:45 Dose: 300 mg Documented by: [id number] Admin: 10/28/20 20:58 Dose: 300 mg Documented by: [id number] Admin: 10/28/20 13:46 Dose: 300 mg Documented by: [id number] Admin: 10/28/20 08:37 Dose: 300 mg Documented by: [id number] Admin: 10/27/20 20:15 Dose: 300 mg Documented by: [id number] Admin: 10/27/20 15:43 Dose: 300 mg Documented by: [id number] Admin: 10/27/20 08:55 Dose: 300 mg Documented by: [id number] Admin: 10/26/20 20:34 Dose: 300 mg Documented by: [id number] Admin: 10/26/20 15:14 Dose: 300 mg Documented by: [id number] Admin: 10/26/20 09:20 Dose: 300 mg Documented by: [id number] Admin: 10/25/20 20:40 Dose: 300 mg Documented by: [id number] Admin: 10/25/20 14:23 Dose: 300 mg Documented by: [id number] Admin: 10/25/20 08:36 Dose: 300 mg Documented by: [id number] Metoprolol Succinate (Metoprolol Succ 25mg Ext Rel Tab) 25 mg PO DAILY [facility] Stop: 11/24/20 08:59 Last Admin: 10/29/20 08:45 Dose: 25 mg Documented by: [id number] Admin: 10/28/20 08:35 Dose: 25 mg Documented by: [id number] Admin: 10/27/20 08:53 Dose: 25 mg Documented by: [id number] Admin: 10/26/20 09:22 Dose: 25 mg Documented by: [id number] Admin: 10/25/20 08:35 Dose: 25 mg Documented by: [id number] Morphine Sulfate (Morphine Sulfate 2 Mg/Ml Carp) Confirm Administered Dose 2 mg .ROUTE .STK-MED ONE Stop: 10/25/20 01:22 Last Admin: 10/25/20 03:59 Dose: Not Given Documented by: [id number] Morphine Sulfate (Morphine Sulfate 2 Mg/Ml Carp) 2 mg IV Q4H PRN PRN Reason: Severe Pain Stop: 11/08/20 01:58 Last Admin: 10/26/20 11:45 Dose: 2 mg Documented by: [id number] Admin: 10/26/20 05:29 Dose: 2 mg Documented by: [id number] Admin: 10/25/20 21:02 Dose: 2 mg Documented by: [id number] Admin: 10/25/20 10:15 Dose: 2 mg Documented by: [id number] Admin: 10/25/20 06:41 Dose: 2 mg Documented by: [id number] Ondansetron HCl (Ondansetron Inj 2 Mg/Ml 2 Ml Vial) 4 mg IV Q6H PRN PRN Reason: Nausea Stop: 11/24/20 01:58 Last Admin: 10/27/20 09:56 Dose: 4 mg Documented by: [id number] Pantoprazole Sodium (Pantoprazole 40 Mg Tab) 40 mg PO QAM [facility]; Protocol Stop: 11/24/20 08:59 Last Admin: 10/29/20 08:44 Dose: 40 mg Documented by: [id number] Admin: 10/28/20 08:37 Dose: 40 mg Documented by: [id number] Admin: 10/27/20 08:53 Dose: 40 mg Documented by: [id number] Admin: 10/26/20 09:21 Dose: 40 mg Documented by: [id number] Admin: 10/25/20 08:36 Dose: 40 mg Documented by: [id number] Sertraline HCl (Sertraline Hcl 50 Mg Tablet) 150 mg PO DAILY [facility] Stop: 11/24/20 08:59 Last Admin: 10/29/20 08:44 Dose: 150 mg Documented by: [id number] Admin: 10/28/20 08:36 Dose: 150 mg Documented by: [id number] Admin: 10/27/20 08:53 Dose: 150 mg Documented by: [id number] Admin: 10/26/20 09:21 Dose: 150 mg Documented by: [id number] Admin: 10/25/20 08:35 Dose: 150 mg Documented by: [id number] Simvastatin (Simvastatin 20 Mg Tab) 20 mg PO QPM [facility] Stop: 11/24/20 20:59 Last Admin: 10/28/20 20:58 Dose: 20 mg Documented by: [id number] Admin: 10/27/20 20:15 Dose: 20 mg Documented by: [id number] Admin: 10/26/20 20:33 Dose: 20 mg Documented by: [id number] Admin: 10/25/20 20:40 Dose: 20 mg Documented by: [id number] Tramadol HCl (Tramadol Hcl 50 Mg Tablet) Confirm Administered Dose 50 mg .ROUTE .STK-MED ONE Stop: 10/25/20 01:22 Last Admin: 10/25/20 01:23 Dose: 50 mg Documented by: [id number] Admin: 10/25/20 01:23 Dose: 50 mg Documented by: [id number] Tramadol HCl (Tramadol Hcl 50 Mg Tablet) 50 mg PO TID PRN PRN Reason: Moderate Pain Stop: 11/24/20 01:58 Last Admin: 10/29/20 08:46 Dose: 50 mg Documented by: [id number] Admin: 10/28/20 17:06 Dose: 50 mg Documented by: [id number] Admin: 10/28/20 08:47 Dose: 50 mg Documented by: [id number] Admin: 10/27/20 18:31 Dose: 50 mg Documented by: [id number] Admin: 10/27/20 09:56 Dose: 50 mg Documented by: [id number] Admin: 10/27/20 02:46 Dose: 50 mg Documented by: [id number] Admin: 10/25/20 09:43 Dose: 50 mg Documented by: [id number] Vitamin D (Cholecalciferol 1,000 Units 25 Mcg Tab) 5,000 units PO PM [facility] Stop: 11/24/20 20:59 Last Admin: 10/28/20 20:57 Dose: 5,000 units Documented by: [id number] Admin: 10/27/20 20:15 Dose: 5,000 units Documented by: [id number] Admin: 10/26/20 20:34 Dose: 5,000 units Documented by: [id number] Admin: 10/25/20 20:40 Dose: 5,000 units Documented by: [id number] Medical Decision Making Differential Diagnosis Differential diagnosis includes hip fracture, pelvic fracture, dislocation, contusion, anemia, electrolyte imbalance, among others. Home Medications Current Medication List: was personally reviewed by me Laboratory Data Attestation: I reviewed the patient's lab results. Result diagrams: 10/27/20 05:33 10/27/20 05:33 Lab Results 10/24/20 10/24/20 10/24/20 Range/Units 20:45 20:45 20:45 WBC 10.46 (4.8-10.8) K/uL RBC 4.19 L (4.2-5.4) M/uL Hgb 12.2 (12.0-16.0) g/dL Hct 38.3 (37-47) % MCV 91.4 (80-100) fL MCH 29.1 (25-34) pg MCHC 31.9 L (32-36) g/dL RDW Std Deviation 48.8 H (36.4-46.3) fL RDW Coeff of Martine 14.6 H (11.5-14.5) % Plt Count 279 (130-400) K/uL MPV 9.5 (7.4-10.4) fL Immature Gran % (Auto) 0.2 % Neut % (Auto) 67.4 % Lymph % (Auto) 19.4 % [place] % (Auto) 10.0 % Eos % (Auto) 2.2 % Baso % (Auto) 0.8 % Neut # (Auto) 7.05 H (1.4-6.5) K/uL Lymph # (Auto) 2.03 (1.2-3.4) K/uL [place] # (Auto) 1.05 H (0.11-0.59) K/uL Eos # (Auto) 0.23 (0-0.5) K/uL Baso # (Auto) 0.08 (0-0.2) K/uL Immature Gran # (Auto) 0.02 (0.00-0.02) K/uL PT 9.9 (9.0-12.0) Seconds INR 1.0 (0.9-1.1) APTT 34.0 H (21.0-31.0) Seconds PTT Ratio 1.3 Sodium 140 (136-145) mmol/L Potassium 4.6 (3.5-5.1) mmol/L Chloride 105 (98-107) mmol/L Carbon Dioxide 30 (21-32) mmol/L Anion Gap 4.0 (3-11) BUN 22 H (7-18) mg/dl Creatinine 1.22 H (0.6-1.2) mg/dl Est Cr Clr Drug Dosing Not Reportable Est GFR ( Amer) 46.1 ml/min Est GFR (Non-Af Amer) 39.8 ml/min BUN/Creatinine Ratio 18.1 (10-20) Glucose 109 H (70-99) mg/dl Calcium 9.5 (8.5-10.1) mg/dl Total Bilirubin 0.2 (0.2-1) mg/dl AST 20 (15-37) U/L ALT 17 (12-78) U/L Alkaline Phosphatase 111 (45-117) U/L Total Protein 7.9 (6.4-8.2) gm/dl Albumin 3.5 (3.4-5.0) gm/dl Globulin 4.4 H (2.5-4.0) gm/dl Albumin/Globulin Ratio 0.8 L (0.9-2) Urine Color Urine Appearance (Clear) Urine pH (4.5-7.5) Ur Specific [place] (1.000-1.030) Urine Protein (Negative) Urine Glucose (UA) (Negative) Urine Ketones (Negative) Urine Blood (Negative) Urine Nitrite (Negative) Urine Bilirubin (Negative) Urine Urobilinogen (Negative) Ur Leukocyte Esterase (Negative) Urine WBC (Auto) (0-5) /hpf Urine RBC (Auto) (0-4) /hpf U Hyaline Cast (Auto) (0-5) /lpf U Epithel Cells (Auto) (0-5) /lpf Urine Bacteria (Auto) (Negative) Urine Yeast COVID-19 Eval Order SARS-CoV-2 (PCR) (Negative) Blood Type Antibody Screen 10/24/20 10/24/20 10/24/20 Range/Units 21:01 22:41 22:41 WBC (4.8-10.8) K/uL RBC (4.2-5.4) M/uL Hgb (12.0-16.0) g/dL Hct (37-47) % MCV (80-100) fL MCH (25-34) pg MCHC (32-36) g/dL RDW Std Deviation (36.4-46.3) fL RDW Coeff of Martine (11.5-14.5) % Plt Count (130-400) K/uL MPV (7.4-10.4) fL Immature Gran % (Auto) % Neut % (Auto) % Lymph % (Auto) % [place] % (Auto) % Eos % (Auto) % Baso % (Auto) % Neut # (Auto) (1.4-6.5) K/uL Lymph # (Auto) (1.2-3.4) K/uL [place] # (Auto) (0.11-0.59) K/uL Eos # (Auto) (0-0.5) K/uL Baso # (Auto) (0-0.2) K/uL Immature Gran # (Auto) (0.00-0.02) K/uL PT (9.0-12.0) Seconds INR (0.9-1.1) APTT (21.0-31.0) Seconds PTT Ratio Sodium (136-145) mmol/L Potassium (3.5-5.1) mmol/L Chloride (98-107) mmol/L Carbon Dioxide (21-32) mmol/L Anion Gap (3-11) BUN (7-18) mg/dl Creatinine (0.6-1.2) mg/dl Est Cr Clr Drug Dosing Est GFR ( Amer) ml/min Est GFR (Non-Af Amer) ml/min BUN/Creatinine Ratio (10-20) Glucose (70-99) mg/dl Calcium (8.5-10.1) mg/dl Total Bilirubin (0.2-1) mg/dl AST (15-37) U/L ALT (12-78) U/L Alkaline Phosphatase (45-117) U/L Total Protein (6.4-8.2) gm/dl Albumin (3.4-5.0) gm/dl Globulin (2.5-4.0) gm/dl Albumin/Globulin Ratio (0.9-2) Urine Color Urine Appearance (Clear) Urine pH (4.5-7.5) Ur Specific [place] (1.000-1.030) Urine Protein (Negative) Urine Glucose (UA) (Negative) Urine Ketones (Negative) Urine Blood (Negative) Urine Nitrite (Negative) Urine Bilirubin (Negative) Urine Urobilinogen (Negative) Ur Leukocyte Esterase (Negative) Urine WBC (Auto) (0-5) /hpf Urine RBC (Auto) (0-4) /hpf U Hyaline Cast (Auto) (0-5) /lpf U Epithel Cells (Auto) (0-5) /lpf Urine Bacteria (Auto) (Negative) Urine Yeast COVID-19 Eval Order Covid19 at [facility] SARS-CoV-2 (PCR) NEGATIVE (Negative) Blood Type B Positive Antibody Screen NEGATIVE 10/24/20 10/25/20 10/25/20 Range/Units 23:30 05:26 05:26 WBC 6.59 (4.8-10.8) K/uL RBC 3.97 L (4.2-5.4) M/uL Hgb 11.6 L (12.0-16.0) g/dL Hct 36.1 L (37-47) % MCV 90.9 (80-100) fL MCH 29.2 (25-34) pg MCHC 32.1 (32-36) g/dL RDW Std Deviation 47.6 H (36.4-46.3) fL RDW Coeff of Martine 14.3 (11.5-14.5) % Plt Count 248 (130-400) K/uL MPV 9.5 (7.4-10.4) fL Immature Gran % (Auto) 0.2 % Neut % (Auto) 53.2 % Lymph % (Auto) 33.1 % [place] % (Auto) 11.2 % Eos % (Auto) 1.5 % Baso % (Auto) 0.8 % Neut # (Auto) 3.51 (1.4-6.5) K/uL Lymph # (Auto) 2.18 (1.2-3.4) K/uL [place] # (Auto) 0.74 H (0.11-0.59) K/uL Eos # (Auto) 0.10 (0-0.5) K/uL Baso # (Auto) 0.05 (0-0.2) K/uL Immature Gran # (Auto) 0.01 (0.00-0.02) K/uL PT (9.0-12.0) Seconds INR (0.9-1.1) APTT (21.0-31.0) Seconds PTT Ratio Sodium 138 (136-145) mmol/L Potassium 4.2 (3.5-5.1) mmol/L Chloride 104 (98-107) mmol/L Carbon Dioxide 29 (21-32) mmol/L Anion Gap 5.0 (3-11) BUN 19 H (7-18) mg/dl Creatinine 1.11 (0.6-1.2) mg/dl Est Cr Clr Drug Dosing 38.4 Est GFR ( Amer) 51.7 ml/min Est GFR (Non-Af Amer) 44.6 ml/min BUN/Creatinine Ratio 17.4 (10-20) Glucose 107 H (70-99) mg/dl Calcium 8.9 (8.5-10.1) mg/dl Total Bilirubin 0.4 (0.2-1) mg/dl AST 18 (15-37) U/L ALT 15 (12-78) U/L Alkaline Phosphatase 110 (45-117) U/L Total Protein 7.2 (6.4-8.2) gm/dl Albumin 3.2 L (3.4-5.0) gm/dl Globulin 4.0 (2.5-4.0) gm/dl Albumin/Globulin Ratio 0.8 L (0.9-2) Urine Color Yellow Urine Appearance Clear (Clear) Urine pH 5.5 (4.5-7.5) Ur Specific [place] 1.020 (1.000-1.030) Urine Protein Negative (Negative) Urine Glucose (UA) Negative (Negative) Urine Ketones Negative (Negative) Urine Blood Negative (Negative) Urine Nitrite Negative (Negative) Urine Bilirubin Negative (Negative) Urine Urobilinogen Negative (Negative) Ur Leukocyte Esterase 1+ H (Negative) Urine WBC (Auto) 1-5 (0-5) /hpf Urine RBC (Auto) 0-4 (0-4) /hpf U Hyaline Cast (Auto) 1-5 (0-5) /lpf U Epithel Cells (Auto) >30 H (0-5) /lpf Urine Bacteria (Auto) Negative (Negative) Urine Yeast Not Reportable COVID-19 Eval Order SARS-CoV-2 (PCR) (Negative) Blood Type Antibody Screen 10/26/20 10/26/20 Range/Units 08:10 08:10 WBC 7.25 (4.8-10.8) K/uL RBC 3.99 L (4.2-5.4) M/uL Hgb 11.8 L (12.0-16.0) g/dL Hct 37.4 (37-47) % MCV 93.7 (80-100) fL MCH 29.6 (25-34) pg MCHC 31.6 L (32-36) g/dL RDW Std Deviation 49.4 H (36.4-46.3) fL RDW Coeff of Martine 14.5 (11.5-14.5) % Plt Count 252 (130-400) K/uL MPV 9.4 (7.4-10.4) fL Immature Gran % (Auto) 0.1 % Neut % (Auto) 54.0 % Lymph % (Auto) 30.9 % [place] % (Auto) 11.0 % Eos % (Auto) 3.6 % Baso % (Auto) 0.4 % Neut # (Auto) 3.91 (1.4-6.5) K/uL Lymph # (Auto) 2.24 (1.2-3.4) K/uL [place] # (Auto) 0.80 H (0.11-0.59) K/uL Eos # (Auto) 0.26 (0-0.5) K/uL Baso # (Auto) 0.03 (0-0.2) K/uL Immature Gran # (Auto) 0.01 (0.00-0.02) K/uL PT (9.0-12.0) Seconds INR (0.9-1.1) APTT (21.0-31.0) Seconds PTT Ratio Sodium 139 (136-145) mmol/L Potassium 4.5 (3.5-5.1) mmol/L Chloride 105 (98-107) mmol/L Carbon Dioxide 28 (21-32) mmol/L Anion Gap 6.0 (3-11) BUN 24 H (7-18) mg/dl Creatinine 1.23 H (0.6-1.2) mg/dl Est Cr Clr Drug Dosing 34.6 Est GFR ( Amer) 45.7 ml/min Est GFR (Non-Af Amer) 39.4 ml/min BUN/Creatinine Ratio 19.3 (10-20) Glucose 97 (70-99) mg/dl Calcium 9.1 (8.5-10.1) mg/dl Total Bilirubin (0.2-1) mg/dl AST (15-37) U/L ALT (12-78) U/L Alkaline Phosphatase (45-117) U/L Total Protein (6.4-8.2) gm/dl Albumin (3.4-5.0) gm/dl Globulin (2.5-4.0) gm/dl Albumin/Globulin Ratio (0.9-2) Urine Color Urine Appearance (Clear) Urine pH (4.5-7.5) Ur Specific [place] (1.000-1.030) Urine Protein (Negative) Urine Glucose (UA) (Negative) Urine Ketones (Negative) Urine Blood (Negative) Urine Nitrite (Negative) Urine Bilirubin (Negative) Urine Urobilinogen (Negative) Ur Leukocyte Esterase (Negative) Urine WBC (Auto) (0-5) /hpf Urine RBC (Auto) (0-4) /hpf U Hyaline Cast (Auto) (0-5) /lpf U Epithel Cells (Auto) (0-5) /lpf Urine Bacteria (Auto) (Negative) Urine Yeast COVID-19 Eval Order SARS-CoV-2 (PCR) (Negative) Blood Type Antibody Screen Imaging Data Attestation: I personally reviewed and interpreted this imaging study as follows: Radiologist's Impression: Chest X-Ray 10/24/20 20:31 XR chest 1V portable CLINICAL HISTORY: fall COMPARISON STUDY: April 18, 2020 FINDINGS: No pneumothorax. No pleural effusion. Reticular opacities are again seen bilaterally, not significantly changed since prior and could represent chronic interstitial fibrotic changes. Cardiomediastinal silhouette is enlarged. Aorta is tortuous. Interval development of the focal enlargement of the right mediastinal silhouette concerning for aortic dilatation. No significant pulmonary vascular congestion.. Aorta is calcified. Osseous structures: Osteopenia. Vertebral bodies are not well seen. IMPRESSION: 1. Interval focal prominence of the right mediastinal silhouettes concerning for aortic dilatation. Further evaluation with CT angiography of the chest might be considered if clinically indicated. ACT 112: Negative or not required by law. The above report was generated using voice recognition software. It may contain grammatical, syntax or spelling errors. Electronically signed by: Laure Love DO 10/24/2020 9:14 PM Femur X-Ray 10/24/20 20:31 XR femur LT 2V routine CLINICAL HISTORY: left hip pain, fall COMPARISON: November 24, 2018 DISCUSSION: Orthopedic hardware within left femur. Acute slightly displaced fracture of the left pubic and possible of the left ischial bone. Vascular calcifications are seen. IMPRESSION: As above. ACT 112: Negative or not required by law. The above report was generated using voice recognition software. It may contain grammatical, syntax or spelling errors. Electronically signed by: Laure Love DO 10/24/2020 9:08 PM Pelvis X-Ray 10/24/20 20:31 XR pelvis 1-2V routine CLINICAL HISTORY: left hip pain, fall COMPARISON: November 24, 2018 DISCUSSION: Previously seen comminuted fracture of the left intratrochanteric region is again seen with interval placement of medullary riaz and fixating screw. Interval development of slightly displaced fracture of the left pubic and left ischial bones. Stable position of prosthetic hip joint and orthopedic hardware within lower lumbar spine Heavy vascular calcifications are again seen. Diffuse soft tissue edema is demonstrated. IMPRESSION: Interval development of slightly displaced fracture of the left pubic bone and left ischial bone. Atherosclerosis. The rest of findings as above. ACT 112: Negative or not required by law. The above report was generated using voice recognition software. It may contain grammatical, syntax or spelling errors. Electronically signed by: Laure Love DO 10/24/2020 9:06 PM MDM Narrative Continuous machine cleaner: Order was placed for continuous machine cleaner. Patient was placed on the machine cleaner. Patient was noted to be in a normal sinus rhythm at an initial rate of 60 bpm. The patient is an 89-year-old female who presents for evaluation of a fall. Patient is complaining of left pelvic/hip pain. X-rays showed a pelvic fracture. Patient was given Fentanyl for pain. She will likely require a stay at a rehab facility. The [facility] Hospitalist group was consulted and agreed to evaluate the patient for further care. Impression & Plan Closed pelvic fracture, Fall Discharge Plan Visit Data Chief Complaint: Fall Stated Complaint: Fall ED Provider: Lance Herrera ED Midlevel Provider: Sima Cai Discharge Problem: Closed pelvic fracture, Fall Patient Disposition: Admitted As Inpatient Discharge Instructions Interventions: ED Discharge Assessment Last Done: 10/25/20 01:48 Discharge Problem: Closed pelvic fracture Qualifiers: Encounter type: initial encounter Pelvic bone location: unspecified part of pelvis Fracture alignment: nondisplaced Qualified Code(s): S32.9XXA - Fracture of unspecified parts of lumbosacral spine and pelvis, initial encounter for closed fracture Fall Qualifiers: Encounter type: initial encounter Qualified Code(s): W19.XXXA - Unspecified fall, initial encounter
[2020-10-24 21:01] LABS: Basophils # (auto) 0.08 K/uL (0-0.2); Basophils % (auto) 0.8 %; Eosinophils # (auto) 0.23 K/uL (0-0.5); Eosinophils % (auto) 2.2 %; Hematocrit (blood only) 38.3 % (37-47); Hemoglobin 12.2 g/dL (12.0-16.0); Immature Granulocytes # (auto) 0.02 K/uL (0.00-0.02); Immature Granulocytes % (auto) 0.2 %; Lymphocytes # (auto) 2.03 K/uL (1.2-3.4); Lymphocytes % (auto) 19.4 %; Mean Corpuscular Hemoglobin 29.1 pg (25-34); Mean Corpuscular Hgb Conc 31.9 g/dL (32-36); Mean Corpuscular Volume 91.4 fL (80-100); Mean Platelet Volume 9.5 fL (7.4-10.4); Monocytes # (auto) 1.05 K/uL (0.11-0.59); Neutrophils # (auto) 7.05 K/uL (1.4-6.5); Neutrophils % (auto) 67.4 %; Platelet Count 279 K/uL (130-400); RDW Coefficient of Variation 14.6 % (11.5-14.5); RDW Standard Deviation 48.8 fL (36.4-46.3); Red Blood Count 4.19 M/uL (4.2-5.4); White Blood Count 10.46 K/uL (4.8-10.8)
--- NOTE | 2020-10-24 21:08 | XRay Report ---
XR pelvis 1-2V routine CLINICAL HISTORY: left hip pain, fall COMPARISON: November 24, 2018 DISCUSSION: Previously seen comminuted fracture of the left intratrochanteric region is again seen with interval placement of medullary riaz and fixating screw. Interval development of slightly displaced fracture of the left pubic and left ischial bones. Stable position of prosthetic hip joint and orthopedic hardware within lower lumbar spine Heavy vascular calcifications are again seen. Diffuse soft tissue edema is demonstrated. IMPRESSION: Interval development of slightly displaced fracture of the left pubic bone and left ischial bone. Atherosclerosis. The rest of findings as above. ACT 112: Negative or not required by law. The above report was generated using voice recognition software. It may contain grammatical, syntax o r spelling errors. Electronically signed by: Laure Love DO 10/24/2020 9:06 PM
--- NOTE | 2020-10-24 21:09 | XRay Report ---
XR femur LT 2V routine CLINICAL HISTORY: left hip pain, fall COMPARISON: November 24, 2018 DISCUSSION: Orthopedic hardware within left femur. Acute slightly displaced fracture of the left pubic and possible of the left ischial bone. Vascular calcifications are seen. IMPRESSION: As above. ACT 112: Negative or not required by law. The above report was generated using voice recognition software. It may contain grammatical, syntax o r spelling errors. Electronically signed by: Laure Love DO 10/24/2020 9:08 PM
--- NOTE | 2020-10-24 21:15 | XRay Report ---
XR chest 1V portable CLINICAL HISTORY: fall COMPARISON STUDY: April 18, 2020 FINDINGS: No pneumothorax. No pleural effusion. Reticular opacities are again seen bilaterally, not significantly changed since prior and could repre sent chronic interstitial fibrotic changes. Cardiomediastinal silhouette is enlarged. Aorta is tortuous. Interval development of the focal enlarg ement of the right mediastinal silhouette concerning for aortic dilatation. No significant pulmonary vascular congestion.. Aorta is calcified. Osseous structures: Osteopenia. Vertebral bodies are not well seen. IMPRESSION: 1. Interval focal prominence of the right mediastinal silhouettes concerning for aortic dilatation. Further evaluation with CT angiography of the chest might be considered if clinically indicated. ACT 112: Negative or not required by law. The above report was generated using voice recognition software. It may contain grammatical, syntax o r spelling errors. Electronically signed by: Laure Love DO 10/24/2020 9:14 PM
[2020-10-24 21:17] LABS: Partial Thromboplastin Ratio 1.3; Prothrombin Time 9.9 Seconds (9.0-12.0)
[2020-10-24 21:20] LABS: Albumin Level 3.5 gm/dl (3.4-5.0); Aspartate Aminotransferase 20 U/L (15-37); BUN Creatinine Ratio 18.1 (10-20); Blood Urea Nitrogen 22 mg/dl (7-18); Calcium 9.5 mg/dl (8.5-10.1); Carbon Dioxide 30 mmol/L (21-32); Chloride 105 mmol/L (98-107); Est GFR (African American) 46.1 ml/min; Est GFR (Non-African American) 39.8 ml/min; Glucose 109 mg/dl (70-99); Potassium 4.6 mmol/L (3.5-5.1); Sodium 140 mmol/L (136-145)
[2020-10-24 21:23] LABS: Alanine Aminotransferase 17 U/L (12-78); Albumin Globulin Ratio 0.8 (0.9-2); Alkaline Phosphatase 111 U/L (45-117); Bilirubin,Total 0.2 mg/dl (0.2-1); Globulin 4.4 gm/dl (2.5-4.0); Total Protein 7.9 gm/dl (6.4-8.2)
--- NOTE | 2020-10-24 22:57 | History & Physical Report ---
Date of Service October 24, 2020 History of Present Illness Primary Care Provider: Demetris Garcia MD Allergies Allergy/AdvReac Type Severity Reaction Status Date / Time cephalexin [From Keflex] Allergy Unknown Unknown Verified 10/24/20 21:14 Cephalosporins Allergy Unknown HIVES/RASH Verified 10/24/20 21:14 celecoxib AdvReac Unknown upset Verified 10/24/20 21:14 stomach venlafaxine AdvReac Unknown GI UPSET Verified 10/24/20 21:14 Home Medications Medication Instructions Recorded Confirmed Type cholecalciferol (vitamin D3) 125 5,000 unit PO PM cap 07/18/18 10/24/20 History mcg (5,000 unit) capsule (Dialyvite Vitamin D) calcium 2 tab PO DAILY tab 09/07/18 10/24/20 History [id number]-[id number]-boron 250 mg-40 mg-125 unit tablet (Citracal-D3 Plus Magnesium) acetaminophen 325 mg tablet (Mapap 650 mg PO Q4H PRN #30 tab 11/30/18 10/24/20 Rx (acetaminophen)) albuterol sulfate 90 mcg/actuation 2 puff INHALATION Q6 PRN 03/19/20 10/24/20 History aerosol inhaler aspirin 81 mg tablet,delayed 81 mg PO DAILY tab 04/03/20 10/24/20 History release (Ecotrin Low Strength) mupirocin 2 % topical ointment 1 applic TOPICAL BID #22 g 04/03/20 10/24/20 Rx metoprolol succinate 25 mg 25 mg PO DAILY #90 tab 04/08/20 10/24/20 Rx tablet,extended release 24 hr gabapentin 400 mg capsule 400 mg PO TID #90 cap 04/15/20 10/24/20 Rx simvastatin 20 mg tablet (Zocor) 20 mg PO QPM #90 tab 04/22/20 10/24/20 Rx bupropion HCl 150 mg tablet,12 hr 150 mg PO QAM #90 ea 06/23/20 10/24/20 Rx sustained-release (Wellbutrin SR) ferrous sulfate 325 mg (65 mg 325 mg PO DAILY 08/20/20 10/24/20 History iron) tablet gabapentin 300 mg capsule 300 mg PO TID #270 cap 10/02/20 10/24/20 Rx sertraline 100 mg tablet (Zoloft) 150 mg PO DAILY #135 tab 10/02/20 10/24/20 Rx tramadol 50 mg tablet 50 mg PO TID PRN #90 tab 10/16/20 10/24/20 Rx omeprazole 20 mg capsule,delayed 20 mg PO QAM 10/24/20 10/24/20 History release Past Med/Surg History Medical History Abnormal CT scan, lumbar spine Aneurysm of infrarenal abdominal aorta Chronic constipation Chronic obstructive pulmonary disease Chronic osteoarthritis Chronic pain syndrome Chronic right hip pain Collagenous colitis Decreased hearing Esophageal reflux Internal carotid artery stenosis Macular degeneration Solitary thyroid nodule Thrombosis of left external carotid artery Vitamin D deficiency Surgical History H/O hysterectomy with oophorectomy H/O ligation of vein with stripping History of bladder surgery bladder tuck History of bunionectomy of both great toes History of cataract surgery bilateral History of hip replacement, total History of intravascular stent placement Dr. Alas History of lumbar fusion History of total right hip arthroplasty Hx of appendectomy Hx of colonoscopy Family History Mother Acute myocardial infarction Myocardial infarction Father Stroke syndrome Hypertension Brother Lung cancer Acute myocardial infarction Sister Carcinoma of pancreas Pancreatic cancer Aunt Breast cancer Denies family history of Ovarian cancer Prostate cancer Colorectal cancer Social History Smoking Status: Former smoker Second Hand Exposure: No; Hx Alcohol Use: No Hx Substance Use: No Preferred Language: Arabic Communication Ability: Effective Visual Impairment: Limited Hearing Ability: Use of Hearing Aid Binding Printer Required: No Beliefs That Will Affect Care: None marital status: / Current Living Situation: Alone current occupational status: retired How many Children do You have: 8 Feels Safe at Home: Yes Childhood Exposure to Second-Hand Smoke: Yes caffeine: Yes Dental Care, Regularly: No Physical Activity Frequency: Does not Exercise Seatbelt Use: always Sunscreen Use: No Assistive Devices: Glasses, Oxygen - Continuous and Walker Results & Data Results & Data ([facility]) Vital Signs (Past 12 Hours) Vital Signs Temp Pulse Pulse Resp BP BP Pulse Ox 10/24/20 22:44 62 20 176/77 H 94 10/24/20 20:45 66 67 20 160/78 H 98 10/24/20 20:23 36.6 C 69 18 169/84 H 95
[2020-10-24] MEDS ORDERED: fentaNYL citrate 100 MCG/2 ML VIAL IV STA (23:09)
[2020-10-24 23:55] LABS: Appearance Urine Clear (Clear); Bacteria Urine Automated Negative (Negative); Bilirubin Urine Negative (Negative); Blood Urine Negative (Negative); Color Urine Yellow; Epithelial Cell Urine Auto >30 /lpf (0-5); Glucose Urine UA Negative (Negative); Ketones Urine Negative (Negative); Leukocyte Esterase Urine 1+ (Negative); Nitrite Urine Negative (Negative); Protein Urine Negative (Negative); Urobilinogen Urine Negative (Negative); pH Urine 5.5 (4.5-7.5)
[2020-10-25 00:50] LABS: RBC Urine Automated 0-4 /hpf (0-4)
[2020-10-25] MEDS ORDERED: MoRPHine SULFATE 2 MG/ML CARP ONE (01:21)
[2020-10-25] MEDS: traMADol HCL 50 MG TABLET ONE (01:23)
[2020-10-25] MEDS ORDERED: ONDANSETRON INJ 2 MG/ML 2 ML VIAL IV PRN (01:59)
--- NOTE | 2020-10-25 02:19 | History & Physical Report ---
Date of Service October 25, 2020 The patient was seen and examined on 10/24/20 Assessment & Plan (1) Status post fall: Plan: Status post mechanical fall- Imaging without signs of fracture or displacement of left total hip arthroplasty Consult PT/OT Patient would likely benefit from inpatient rehab Acetaminophen 650 mg p.o. every 6 hours as needed mild pain or fever Tramadol 50 mg p.o. 3 times daily as needed moderate pain Morphine sulfate 2 mg IV every 4 hours as needed severe pain (2) Debilitated patient: Plan: General debilitation- Contributing factor is chronic pain syndrome and generalized osteoarthritis PT/OT as above (3) Esophageal reflux: Plan: Continue omeprazole/pantoprazole (4) Chronic obstructive pulmonary disease: Plan: Hold albuterol HFA. If needed, duonebs every 2 hours as needed (5) HTN (hypertension): Plan: Continue aspirin, and metoprolol succinate (6) Hyperlipidemia: Plan: Continue simvastatin (7) Depression: Plan: Continue sertraline Admission and Anticipated Discharge Date Admission Date: October 24, 2020 History of Present Illness Chief Complaint: The patient presents to the emergency department for evaluation of left hip pain after a fall after losing her balance walking around with her walker. Primary Care Provider: Demetris Garcia MD The patient is an 89-year-old female with a past medical history doing pneumonia due to COVID-19 virus, left femur intertrochanteric fracture, vitamin D def iciency, solitary thyroid nodule, internal carotid artery stenosis, GERD, collagenous colitis, chronic pain syndrome, COPD, AAA infrarenal, hypertension, hyperlipidemia and depression. Patient presents with symptoms as noted above. She denies any associated lightheadedness or dizziness, and denies any head trauma. She does have a history of left hip fracture repaired by Dr. Figueroa. Allergies Allergy/AdvReac Type Severity Reaction Status Date / Time cephalexin [From Keflex] Allergy Unknown Unknown Verified 10/24/20 21:14 Cephalosporins Allergy Unknown HIVES/RASH Verified 10/24/20 21:14 celecoxib AdvReac Unknown upset Verified 10/24/20 21:14 stomach venlafaxine AdvReac Unknown GI UPSET Verified 10/24/20 21:14 Home Medications Medication Instructions Recorded Confirmed Type cholecalciferol (vitamin D3) 125 5,000 unit PO PM cap 07/18/18 10/24/20 History mcg (5,000 unit) capsule (Dialyvite Vitamin D) calcium 2 tab PO DAILY tab 09/07/18 10/24/20 History [id number]-Oo-boron 250 mg-40 mg-125 unit tablet (Citracal-D3 Plus Magnesium) acetaminophen 325 mg tablet (Mapap 650 mg PO Q4H PRN #30 tab 11/30/18 10/24/20 Rx (acetaminophen)) albuterol sulfate 90 mcg/actuation 2 puff INHALATION Q6 PRN 03/19/20 10/24/20 History aerosol inhaler aspirin 81 mg tablet,delayed 81 mg PO DAILY tab 04/03/20 10/24/20 History release (Ecotrin Low Strength) mupirocin 2 % topical ointment 1 applic TOPICAL BID #22 g 04/03/20 10/24/20 Rx metoprolol succinate 25 mg 25 mg PO DAILY #90 tab 04/08/20 10/24/20 Rx tablet,extended release 24 hr gabapentin 400 mg capsule 400 mg PO TID #90 cap 04/15/20 10/24/20 Rx simvastatin 20 mg tablet (Zocor) 20 mg PO QPM #90 tab 04/22/20 10/24/20 Rx bupropion HCl 150 mg tablet,12 hr 150 mg PO QAM #90 ea 06/23/20 10/24/20 Rx sustained-release (Wellbutrin SR) ferrous sulfate 325 mg (65 mg 325 mg PO DAILY 08/20/20 10/24/20 History iron) tablet gabapentin 300 mg capsule 300 mg PO TID #270 cap 10/02/20 10/24/20 Rx sertraline 100 mg tablet (Zoloft) 150 mg PO DAILY #135 tab 10/02/20 10/24/20 Rx tramadol 50 mg tablet 50 mg PO TID PRN #90 tab 10/16/20 10/24/20 Rx omeprazole 20 mg capsule,delayed 20 mg PO QAM 10/24/20 10/24/20 History release Past Med/Surg History Medical History (Updated 10/25/20 @ 02:29 by Orestes Colon MD) Abnormal CT scan, lumbar spine Aneurysm of infrarenal abdominal aorta Chronic constipation Chronic obstructive pulmonary disease Chronic osteoarthritis Chronic pain syndrome Chronic right hip pain Collagenous colitis Decreased hearing Esophageal reflux Internal carotid artery stenosis Macular degeneration Solitary thyroid nodule Thrombosis of left external carotid artery Vitamin D deficiency Surgical History H/O hysterectomy with oophorectomy H/O ligation of vein with stripping History of bladder surgery bladder tuck History of bunionectomy of both great toes History of cataract surgery bilateral History of hip replacement, total History of intravascular stent placement Dr. Alas History of lumbar fusion History of total right hip arthroplasty Hx of appendectomy Hx of colonoscopy Family History Mother Acute myocardial infarction Myocardial infarction Father Stroke syndrome Hypertension Brother Lung cancer Acute myocardial infarction Sister Carcinoma of pancreas Pancreatic cancer Aunt Breast cancer Denies family history of Ovarian cancer Prostate cancer Colorectal cancer Social History Smoking Status: Former smoker Smoking End Date: 2013; Second Hand Exposure: No; Hx Alcohol Use: No Hx Substance Use: No Preferred Language: Polish Communication Ability: Effective Visual Impairment: Limited Hearing Ability: Use of Hearing Aid Quarter Doper Required: No Beliefs That Will Affect Care: None marital status: / Current Living Situation: Alone current occupational status: retired How many Children do You have: 8 Feels Safe at Home: Yes Safety Concerns: Feels Safe At This Time Childhood Exposure to Second-Hand Smoke: Yes caffeine: Yes Dental Care, Regularly: No Physical Activity Frequency: Does not Exercise Seatbelt Use: always Sunscreen Use: No Assistive Devices: Glasses, Hearing Aid - Bilateral, Oxygen - at Night and Walker Review of Systems Review of Systems: The patient denies chest pain, palpitations, shortness of breath, dyspnea on exertion, cough, lower extremity swelling, sore throat, fevers, chills, sweats, nausea, vomiting, diarrhea , constipation, abdominal pain, pelvic pain, blood in urine or stool, dysuria, urinary frequency or urgency, lightheadedness, dizziness, headache, loss of consciousness, rash, abnormal bruising or bleeding, focal weakness, numbness or tingling in arms or legs, or night sweats. The review of systems is otherwise negative other than for that already noted above, and at least 10 systems have been reviewed. Physical Exam Physical Exam: The patient is awake, alert and oriented 3, well developed and well nourished, normocephalic and atraumatic, lying in bed and in no acute distress. HEENT--PERRL, EOMI, mucous membranes and oropharynx dry. Neck--supple. No JVD. No bruits. Thyroid normal, trachea midline, no adenopathy. Heart--normal S1 and S2. No murmurs, rubs or gallops. Lungs--clear bilaterally, no respiratory distress, no accessory muscle use. Abdomen--normal bowel sounds and soft. Nontender. Nondistended Extremities--no cyanosis or clubbing. No edema. Dermatologic--skin is mildly dry Neurologic--cranial nerves II through XII grossly intact. Rheumatologic--normal range of motion. Psychiatric--normal affect. Results & Data Results & Data ([facility]) Vital Signs (Past 12 Hours) Vital Signs Temp Pulse Pulse Resp BP BP Pulse Ox 10/25/20 01:42 97.9 F 70 20 191/83 H 92 10/25/20 01:00 62 20 181/78 H 94 10/25/20 00:30 61 16 178/80 H 93 10/25/20 00:00 59 L 18 180/73 H 94 10/24/20 23:31 69 19 157/81 H 94 10/24/20 23:00 61 22 191/88 H 94 10/24/20 22:44 62 20 176/77 H 94 10/24/20 22:30 62 19 176/77 H 94 10/24/20 22:00 60 18 177/78 H 93 10/24/20 21:30 60 19 169/75 H 93 10/24/20 21:00 62 20 137/82 94 10/24/20 20:45 66 67 20 160/78 H 98 10/24/20 20:30 65 15 160/78 H 94 10/24/20 20:23 97.9 F 69 18 169/84 H 95 Laboratory Results Laboratory Results WBC 10.46 K/uL (4.8-10.8) 10/24/20 20:45 RBC 4.19 M/uL (4.2-5.4) L 10/24/20 20:45 Hgb 12.2 g/dL (12.0-16.0) 10/24/20 20:45 Hct 38.3 % (37-47) 10/24/20 20:45 MCV 91.4 fL (80-100) 10/24/20 20:45 MCH 29.1 pg (25-34) 10/24/20 20:45 MCHC 31.9 g/dL (32-36) L 10/24/20 20:45 RDW Std Deviation 48.8 fL (36.4-46.3) H 10/24/20 20:45 RDW Coeff of Martine 14.6 % (11.5-14.5) H 10/24/20 20:45 Plt Count 279 K/uL (130-400) 10/24/20 20:45 MPV 9.5 fL (7.4-10.4) 10/24/20 20:45 Immature Gran % (Auto) 0.2 % 10/24/20 20:45 Neut % (Auto) 67.4 % 10/24/20 20:45 Lymph % (Auto) 19.4 % 10/24/20 20:45 [place] % (Auto) 10.0 % 10/24/20 20:45 Eos % (Auto) 2.2 % 10/24/20 20:45 Baso % (Auto) 0.8 % 10/24/20 20:45 Neut # (Auto) 7.05 K/uL (1.4-6.5) H 10/24/20 20:45 Lymph # (Auto) 2.03 K/uL (1.2-3.4) 10/24/20 20:45 [place] # (Auto) 1.05 K/uL (0.11-0.59) H 10/24/20 20:45 Eos # (Auto) 0.23 K/uL (0-0.5) 10/24/20 20:45 Baso # (Auto) 0.08 K/uL (0-0.2) 10/24/20 20:45 Immature Gran # (Auto) 0.02 K/uL (0.00-0.02) 10/24/20 20:45 PT 9.9 Seconds (9.0-12.0) 10/24/20 20:45 INR 1.0 (0.9-1.1) 10/24/20 20:45 APTT 34.0 Seconds (21.0-31.0) H 10/24/20 20:45 PTT Ratio 1.3 10/24/20 20:45 Sodium 140 mmol/L (136-145) 10/24/20 20:45 Potassium 4.6 mmol/L (3.5-5.1) 10/24/20 20:45 Chloride 105 mmol/L (98-107) 10/24/20 20:45 Carbon Dioxide 30 mmol/L (21-32) 10/24/20 20:45 Anion Gap 4.0 (3-11) 10/24/20 20:45 BUN 22 mg/dl (7-18) H 10/24/20 20:45 Creatinine 1.22 mg/dl (0.6-1.2) H 10/24/20 20:45 Est Cr Clr Drug Dosing Not Reportable 10/24/20 20:45 Est GFR ( Amer) 46.1 ml/min 10/24/20 20:45 Est GFR (Non-Af Amer) 39.8 ml/min 10/24/20 20:45 BUN/Creatinine Ratio 18.1 (10-20) 10/24/20 20:45 Glucose 109 mg/dl (70-99) H 10/24/20 20:45 Calcium 9.5 mg/dl (8.5-10.1) 10/24/20 20:45 Total Bilirubin 0.2 mg/dl (0.2-1) 10/24/20 20:45 AST 20 U/L (15-37) 10/24/20 20:45 ALT 17 U/L (12-78) 10/24/20 20:45 Alkaline Phosphatase 111 U/L (45-117) 10/24/20 20:45 Total Protein 7.9 gm/dl (6.4-8.2) 10/24/20 20:45 Albumin 3.5 gm/dl (3.4-5.0) 10/24/20 20:45 Globulin 4.4 gm/dl (2.5-4.0) H 10/24/20 20:45 Albumin/Globulin Ratio 0.8 (0.9-2) L 10/24/20 20:45 Urine Color Yellow 10/24/20 23:30 Urine Appearance Clear (Clear) 10/24/20 23:30 Urine pH 5.5 (4.5-7.5) 10/24/20 23:30 Ur Specific [place] 1.020 (1.000-1.030) 10/24/20 23:30 Urine Protein Negative (Negative) 10/24/20 23:30 Urine Glucose (UA) Negative (Negative) 10/24/20 23:30 Urine Ketones Negative (Negative) 10/24/20 23:30 Urine Blood Negative (Negative) 10/24/20 23:30 Urine Nitrite Negative (Negative) 10/24/20 23:30 Urine Bilirubin Negative (Negative) 10/24/20 23:30 Urine Urobilinogen Negative (Negative) 10/24/20 23:30 Ur Leukocyte Esterase 1+ (Negative) H 10/24/20 23:30 Urine WBC (Auto) 1-5 /hpf (0-5) 10/24/20 23:30 Urine RBC (Auto) 0-4 /hpf (0-4) 10/24/20 23:30 U Hyaline Cast (Auto) 1-5 /lpf (0-5) 10/24/20 23:30 U Epithel Cells (Auto) >30 /lpf (0-5) H 10/24/20 23:30 Urine Bacteria (Auto) Negative (Negative) 10/24/20 23:30 Urine Yeast Not Reportable 10/24/20 23:30 COVID-19 Eval Order Covid19 at [facility] 10/24/20 22:41 SARS-CoV-2 (PCR) NEGATIVE (Negative) 10/24/20 22:41 Blood Type B Positive 10/24/20 21:01 Antibody Screen NEGATIVE 10/24/20 21:01 Impressions Chest X-Ray 10/24/20 20:31 XR chest 1V portable CLINICAL HISTORY: fall COMPARISON STUDY: April 18, 2020 FINDINGS: No pneumothorax. No pleural effusion. Reticular opacities are again seen bilaterally, not significantly changed since prior and could represent chronic interstitial fibrotic changes. Cardiomediastinal silhouette is enlarged. Aorta is tortuous. Interval development of the focal enlargement of the right mediastinal silhouette concerning for aortic dilatation. No significant pulmonary vascular congestion.. Aorta is calcified. Osseous structures: Osteopenia. Vertebral bodies are not well seen. IMPRESSION: 1. Interval focal prominence of the right mediastinal silhouettes concerning for aortic dilatation. Further evaluation with CT angiography of the chest might be considered if clinically indicated. ACT 112: Negative or not required by law. The above report was generated using voice recognition software. It may contain grammatical, syntax or spelling errors. Electronically signed by: Laure Love DO 10/24/2020 9:14 PM Femur X-Ray 10/24/20 20:31 XR femur LT 2V routine CLINICAL HISTORY: left hip pain, fall COMPARISON: November 24, 2018 DISCUSSION: Orthopedic hardware within left femur. Acute slightly displaced fracture of the left pubic and possible of the left ischial bone. Vascular calcifications are seen. IMPRESSION: As above. ACT 112: Negative or not required by law. The above report was generated using voice recognition software. It may contain grammatical, syntax or spelling errors. Electronically signed by: Laure Love DO 10/24/2020 9:08 PM Pelvis X-Ray 10/24/20 20:31 XR pelvis 1-2V routine CLINICAL HISTORY: left hip pain, fall COMPARISON: November 24, 2018 DISCUSSION: Previously seen comminuted fracture of the left intratrochanteric region is again seen with interval placement of medullary riaz and fixating screw. Interval development of slightly displaced fracture of the left pubic and left ischial bones. Stable position of prosthetic hip joint and orthopedic hardware within lower lumbar spine Heavy vascular calcifications are again seen. Diffuse soft tissue edema is demonstrated. IMPRESSION: Interval development of slightly displaced fracture of the left pubic bone and left ischial bone. Atherosclerosis. The rest of findings as above. ACT 112: Negative or not required by law. The above report was generated using voice recognition software. It may contain grammatical, syntax or spelling errors. Electronically signed by: Laure Love DO 10/24/2020 9:06 PM Code Status & VTE Plan Code Status Full code PG Care Time/CCT Total # of Minutes Spent Total Time Spent with Patient: Total time spent is greater than 50% in coordination of care (as documented) at patient's floor/unit and/or counseling patient: Coding Level of Care Code INT OBSERVATION CARE 70M LVL 3 Diagnoses Debilitated patient R53.81 Status post fall Z91.81 Esophageal reflux K21.9 Chronic obstructive pulmonary disease J44.9 HTN (hypertension) I10 Hypertension type: essential hypertension Hyperlipidemia E78.5 Depression F32.9 (1) HTN (hypertension) Hypertension type: essential hypertension Qualified Code(s): I10 - Essential (primary) hypertension
--- NOTE | 2020-10-25 02:33 | Billing Data ---
Date of Service October 25, 2020 Coding Level of Care Code INT OBSERVATION CARE 70M LVL 3
[2020-10-25] MEDS: ACETAMINOPHEN 325 MG TAB PO PRN (04:41)
[2020-10-25 05:59] LABS: Basophils # (auto) 0.05 K/uL (0-0.2); Basophils % (auto) 0.8 %; Eosinophils % (auto) 1.5 %; Hematocrit (blood only) 36.1 % (37-47); Hemoglobin 11.6 g/dL (12.0-16.0); Immature Granulocytes # (auto) 0.01 K/uL (0.00-0.02); Immature Granulocytes % (auto) 0.2 %; Lymphocytes # (auto) 2.18 K/uL (1.2-3.4); Lymphocytes % (auto) 33.1 %; Mean Corpuscular Hemoglobin 29.2 pg (25-34); Mean Corpuscular Hgb Conc 32.1 g/dL (32-36); Mean Corpuscular Volume 90.9 fL (80-100); Mean Platelet Volume 9.5 fL (7.4-10.4); Monocytes # (auto) 0.74 K/uL (0.11-0.59); Monocytes % (auto) 11.2 %; Neutrophils # (auto) 3.51 K/uL (1.4-6.5); Neutrophils % (auto) 53.2 %; Platelet Count 248 K/uL (130-400); RDW Coefficient of Variation 14.3 % (11.5-14.5); RDW Standard Deviation 47.6 fL (36.4-46.3); Red Blood Count 3.97 M/uL (4.2-5.4); White Blood Count 6.59 K/uL (4.8-10.8)
[2020-10-25 06:26] LABS: Albumin Level 3.2 gm/dl (3.4-5.0); BUN Creatinine Ratio 17.4 (10-20); Calcium 8.9 mg/dl (8.5-10.1); Creatinine Clr Calc Pharmacy 38.4 ml/min; Est GFR (African American) 51.7 ml/min; Est GFR (Non-African American) 44.6 ml/min; Potassium 4.2 mmol/L (3.5-5.1)
[2020-10-25 06:28] LABS: Albumin Globulin Ratio 0.8 (0.9-2); Bilirubin,Total 0.4 mg/dl (0.2-1); Total Protein 7.2 gm/dl (6.4-8.2)
[2020-10-25] MEDS: MoRPHine SULFATE 2 MG/ML CARP IV PRN ×3 (06:41→21:02)
[2020-10-25] MEDS: GABAPENTIN 400 MG CAP PO SCH ×3 (08:35→20:40)
[2020-10-25] MEDS: SERTRALINE HCL 50 MG TABLET PO SCH (08:35)
[2020-10-25] MEDS: METOPROLOL SUCC 25MG EXT REL TAB PO SCH (08:35)
[2020-10-25] MEDS: FERROUS SULFATE 325 MG TAB PO SCH (08:36)
[2020-10-25] MEDS: buPROPion SR 150 MG TABCR PO SCH (08:36)
[2020-10-25] MEDS: PANTOprazole 40 MG TAB PO SCH (08:36)
[2020-10-25] MEDS: ASPIRIN 81 MG ECTAB PO SCH (08:36)
[2020-10-25] MEDS: GABAPENTIN 300 MG CAP PO SCH ×3 (08:36→20:40)
[2020-10-25] MEDS: traMADol HCL 50 MG TABLET PO PRN (09:43)
--- NOTE | 2020-10-25 18:02 | Communication Note ---
Date of Service: October 25, 2020 Dr Murry and myself assumed patient's care from an early a.m. admit. Patient sleeping comfortably when I saw her, Dr. Murry saw as well at a separate time. No distress. Breathing unlabored. No focal neuro deficits. Fall, weakness, pelvic fracturepain control, weightbearing as tolerated, PT/OT eval and treat, work on rehab placement. Outpatient bone health work-up. DVT prophylaxis with Lovenox
[2020-10-25] MEDS: CHOLECALCIFEROL 1,000 UNITS 25 MCG TAB PO SCH (20:40)
[2020-10-25] MEDS: SIMVASTATIN 20 MG TAB PO SCH (20:40)
[2020-10-26] MEDS: MoRPHine SULFATE 2 MG/ML CARP IV PRN ×2 (05:29→11:45)
[2020-10-26 08:41] LABS: Basophils # (auto) 0.03 K/uL (0-0.2); Basophils % (auto) 0.4 %; Eosinophils # (auto) 0.26 K/uL (0-0.5); Eosinophils % (auto) 3.6 %; Hematocrit (blood only) 37.4 % (37-47); Hemoglobin 11.8 g/dL (12.0-16.0); Immature Granulocytes # (auto) 0.01 K/uL (0.00-0.02); Immature Granulocytes % (auto) 0.1 %; Lymphocytes # (auto) 2.24 K/uL (1.2-3.4); Lymphocytes % (auto) 30.9 %; Mean Corpuscular Hemoglobin 29.6 pg (25-34); Mean Corpuscular Hgb Conc 31.6 g/dL (32-36); Mean Corpuscular Volume 93.7 fL (80-100); Mean Platelet Volume 9.4 fL (7.4-10.4); Neutrophils # (auto) 3.91 K/uL (1.4-6.5); Platelet Count 252 K/uL (130-400); RDW Coefficient of Variation 14.5 % (11.5-14.5); RDW Standard Deviation 49.4 fL (36.4-46.3); Red Blood Count 3.99 M/uL (4.2-5.4); White Blood Count 7.25 K/uL (4.8-10.8)
[2020-10-26 09:01] LABS: BUN Creatinine Ratio 19.3 (10-20); Calcium 9.1 mg/dl (8.5-10.1); Creatinine Clr Calc Pharmacy 34.6 ml/min; Est GFR (African American) 45.7 ml/min; Est GFR (Non-African American) 39.4 ml/min; Potassium 4.5 mmol/L (3.5-5.1)
[2020-10-26] MEDS: GABAPENTIN 400 MG CAP PO SCH ×3 (09:20→20:34)
[2020-10-26] MEDS: GABAPENTIN 300 MG CAP PO SCH ×3 (09:20→20:34)
[2020-10-26] MEDS: ASPIRIN 81 MG ECTAB PO SCH (09:20)
[2020-10-26] MEDS: buPROPion SR 150 MG TABCR PO SCH (09:21)
[2020-10-26] MEDS: PANTOprazole 40 MG TAB PO SCH (09:21)
[2020-10-26] MEDS: SERTRALINE HCL 50 MG TABLET PO SCH (09:21)
[2020-10-26] MEDS: FERROUS SULFATE 325 MG TAB PO SCH (09:22)
[2020-10-26] MEDS: METOPROLOL SUCC 25MG EXT REL TAB PO SCH (09:22)
[2020-10-26] MEDS: ENOXAPARIN INJ 30 MG/0.3 ML SYR SQ SCH (09:34)
--- NOTE | 2020-10-26 09:44 | Hospitalist Progress Note ---
Date of Service October 26, 2020 Assessment & Plan (1) Closed pelvic fracture: Plan: Elena West is an 89-year-old female with PMHx that includes pneumonia due to COVID-19 virus, COPD (no inhalers, uses 2L NC QHS), h/o left femur intertrochanteric fracture, vitamin D deficiency, solitary thyroid nodule and chronic pain syndrome, who was admitted to [facility] on 10/25 for closed left pelvic fracture after mechanical fall. No plans for surgical intervention. Closed left pelvic fracture Status post mechanical fall. Confirmed via XR. Ortho consulted without plans for surgical intervention. - PT/OT recommend SNF on discharge - continue PT/OT while here - PRN pain regimen is controlling pain well: Tylenol/Tramadol/Morphine - continue DVT ppx with Lovenox; can transition to Aspirin 81mg PO daily on discharge (would recommend total of 6 weeks) - continue home Calcium/Vitamin D - recommend outpatient DXA per PCP COPD Patient was a smoker and quit <10 years ago. No home inhalers but does use 2L NC supplemental oxygen at night. - O2 via NC to maintain SpO2 88-92% - DuoNebs PRN - recommend further evaluation per PCP and consideration of anti-cholinergic inhaler HTN - Continue home metoprolol succinate - Consider discontinuation of Aspirin, will defer this decision to PCP HLD - Continue simvastatin GERD - Protonix per hospital formulary Depression - Continue sertraline Chronic Pain - Continue home Gabapentin FEN/GI: Heart-healthy diet DVT Prophylaxis: Lovenox Code Status: FULL CODE Disposition: Med/surg, pending placement to SNF (likely not until at least 10/27) (2) Status post fall: (3) Debilitated patient: (4) Esophageal reflux: (5) Chronic obstructive pulmonary disease: (6) HTN (hypertension): (7) Hyperlipidemia: (8) Depression: Admission and Anticipated Discharge Date Admission Date: October 24, 2020 Supervising Physician Co-Signing Physician Notes I personally examined the patient and verified all zurita points of history and exam, discussed case, and agree with decision making with Dr Esqueda Feeling okay. Worried about pain with movement. Vitals noted, in general she is awake and alert pleasant no distress. HEENT normocephalic atraumatic mucous membranes moist. Breathing unlabored no accessory muscle use good effort. Skin with no rashes no pallor or icterus. No focal neuro deficits. Fall, pelvic fracturestable fracture, no surgical repair needed. Weightbearing as tolerated. PT/OT eval and treat, pain control. Stable for SNF/rehab once possible. Outpatient bone health evaluation and management. Subjective No acute events overnight. Hip pain well-controlled with Morphine 2mg IV x2 overnight. Patient is eating/sleeping well and does not have any complaints this morning. Review of Systems Review of Systems: Denies fever/chills, chest pain, palpitations, SOB, cough, N/V, diarrhea, rash. Physical Exam Physical Exam: General: A&Ox3. NAD. Cooperative. HEENT: Atraumatic, normocephalic. Pulm: CTAB A&P. -wheezes, -rales, -rhonchi. Symmetrical chest rise. No increase work of breathing. No respiratory distress. Cardiac: RRR, -mrg. Radial pulses intact and symmetrical. Abdominal: soft, non-tender, non-distended, BS x 4 Left hip: pain with soft palpation of anterior hip. Skin: soft, dry, no rash Results & Data Results & Data ([facility]) Vital Signs (Past 12 Hours) Vital Signs Temp Pulse Resp BP Pulse Ox 10/26/20 07:38 36.5 C 71 16 149/76 H 94 10/25/20 22:16 36.7 C 74 15 124/74 91 Resident Activity Tracking Resident Involvement: Resident Care Provided Care Provided: Adult Hospital Medicine (1) Closed pelvic fracture Encounter type: initial encounter Fracture alignment: nondisplaced Pelvic bone location: unspecified part of pelvis Qualified Code(s): S32.9XXA - Fracture of unspecified parts of lumbosacral spine and pelvis, initial encounter for closed fracture (2) HTN (hypertension) Hypertension type: essential hypertension Qualified Code(s): I10 - Essential (primary) hypertension
--- NOTE | 2020-10-26 17:38 | Billing Data ---
Date of Service October 26, 2020 Coding Level of Care Code 52111 Subseq Hosp Care Lvl 2
--- NOTE | 2020-10-26 19:54 | Electrocardiogram Report ---
Test Reason : Blood Pressure : / mmHG Vent. Rate : 067 BPM Atrial Rate : 067 BPM P-R Int : 142 ms QRS Dur : 140 ms QT Int : 474 ms P-R-T Axes : 037 -26 094 degrees QTc Int : 500 ms Normal sinus rhythm Left bundle branch block Abnormal ECG When compared with ECG of 24-NOV-2018 12:47, Premature atrial complexes are no longer Present Left bundle branch block is now Present Confirmed by Dakota Francis ([id number]) on 10/26/2020 7:53:44 PM Referred By: REFERRED SELF Confirmed By:Dakota Francis
[2020-10-26] MEDS: SIMVASTATIN 20 MG TAB PO SCH (20:33)
[2020-10-26] MEDS: CHOLECALCIFEROL 1,000 UNITS 25 MCG TAB PO SCH (20:34)
[2020-10-27] MEDS: traMADol HCL 50 MG TABLET PO PRN ×3 (02:46→18:31)
[2020-10-27 05:56] LABS: Basophils # (auto) 0.04 K/uL (0-0.2); Basophils % (auto) 0.5 %; Eosinophils # (auto) 0.29 K/uL (0-0.5); Eosinophils % (auto) 3.8 %; Hematocrit (blood only) 37.3 % (37-47); Hemoglobin 11.8 g/dL (12.0-16.0); Immature Granulocytes # (auto) 0.01 K/uL (0.00-0.02); Immature Granulocytes % (auto) 0.1 %; Lymphocytes # (auto) 2.06 K/uL (1.2-3.4); Lymphocytes % (auto) 26.6 %; Mean Corpuscular Hemoglobin 29.1 pg (25-34); Mean Corpuscular Hgb Conc 31.6 g/dL (32-36); Mean Corpuscular Volume 91.9 fL (80-100); Mean Platelet Volume 9.2 fL (7.4-10.4); Monocytes # (auto) 0.85 K/uL (0.11-0.59); Neutrophils # (auto) 4.48 K/uL (1.4-6.5); Platelet Count 256 K/uL (130-400); RDW Coefficient of Variation 14.3 % (11.5-14.5); RDW Standard Deviation 48.2 fL (36.4-46.3); Red Blood Count 4.06 M/uL (4.2-5.4); White Blood Count 7.73 K/uL (4.8-10.8)
[2020-10-27 06:21] LABS: BUN Creatinine Ratio 23.2 (10-20); Calcium 8.9 mg/dl (8.5-10.1); Creatinine Clr Calc Pharmacy 33.3 ml/min; Est GFR (African American) 43.5 ml/min; Est GFR (Non-African American) 37.6 ml/min; Magnesium 2.3 mg/dl (1.8-2.4); Potassium 4.7 mmol/L (3.5-5.1)
--- NOTE | 2020-10-27 07:19 | Hospitalist Progress Note ---
Date of Service October 27, 2020 Assessment & Plan (1) Closed pelvic fracture: Plan: Elena West is an 89-year-old female with PMHx that includes pneumonia due to COVID-19 virus, COPD (no inhalers, uses 2L NC QHS), h/o left femur intertrochanteric fracture, vitamin D deficiency, solitary thyroid nodule and chronic pain syndrome, who was admitted to [facility] on 10/25 for closed left pelvic fracture after mechanical fall. No plans for surgical intervention. 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 Confirmed via XR. Ortho consulted without plans for surgical intervention. - PT/OT recommend SNF on discharge--per case management patient will need a 3 night stay to qualify for SNF. Patient will need 3 nights on 10/29. -Referral out to [facility] - continue PT/OT while here - PRN pain regimen is controlling pain well: Tylenol/Tramadol/Morphine - continue DVT ppx with Lovenox; can transition to Aspirin 81mg PO daily on discharge (would recommend total of 6 weeks) - continue home Calcium/Vitamin D - recommend outpatient DXA per PCP COPD Patient was a smoker and quit <10 years ago. No home inhalers but does use 2L NC supplemental oxygen at night. - O2 via NC to maintain SpO2 88-92% - DuoNebs PRN - recommend further evaluation per PCP and consideration of anti-cholinergic inhaler HTN - Continue home metoprolol succinate - Consider discontinuation of Aspirin, will defer this decision to PCP HLD - Continue simvastatin GERD - Protonix per hospital formulary Depression - Continue sertraline Chronic Pain - Continue home Gabapentin FEN/GI: Heart-healthy diet DVT Prophylaxis: Lovenox Code Status: FULL CODE Disposition: Med/surg, pending placement to SNF (2) Status post fall: (3) Debilitated patient: (4) Esophageal reflux: (5) Chronic obstructive pulmonary disease: (6) HTN (hypertension): (7) Hyperlipidemia: (8) Depression: Admission and Anticipated Discharge Date Admission Date: October 26, 2020 Supervising Physician Co-Signing Physician Notes Resident Physician Supervision Note: I independently interviewed and examined the patient and verified the zurita history and physical, reviewed labs and image studies and agree with resident Dr. Kohli findings and care plan. Subjective Patient seen at bedside this morning. Pain well controlled with tramadol 50 mg x 2 overnight. Eating well, no nausea no vomiting. No other complaints or concerns from patient today. Review of Systems Review of Systems: Denies CP, palp, SOB, n/v, abd pain, diarrhea. Physical Exam Physical Exam: General: A&Ox3. NAD. Cooperative. HEENT: Atraumatic, normocephalic. Pulm: CTAB A&P. -wheezes, -rales, -rhonchi. Symmetrical chest rise. No increase work of breathing. No respiratory distress. Cardiac: RRR, -mrg. Radial pulses intact and symmetrical. Left hip: pain with soft palpation of anterior hip. Skin: soft, dry, no rash Results & Data Results & Data ([facility]) Vital Signs (Past 12 Hours) Vital Signs Temp Pulse Resp BP Pulse Ox 10/26/20 22:42 36.6 C 80 16 133/76 91 Resident Activity Tracking Resident Involvement: Resident Care Provided Care Provided: Adult Hospital Medicine (1) Closed pelvic fracture Encounter type: initial encounter Fracture alignment: nondisplaced Pelvic bone location: unspecified part of pelvis Qualified Code(s): S32.9XXA - Fracture of unspecified parts of lumbosacral spine and pelvis, initial encounter for closed fracture (2) HTN (hypertension) Hypertension type: essential hypertension Qualified Code(s): I10 - Essential (primary) hypertension
[2020-10-27] MEDS: PANTOprazole 40 MG TAB PO SCH (08:53)
[2020-10-27] MEDS: SERTRALINE HCL 50 MG TABLET PO SCH (08:53)
[2020-10-27] MEDS: buPROPion SR 150 MG TABCR PO SCH (08:53)
[2020-10-27] MEDS: METOPROLOL SUCC 25MG EXT REL TAB PO SCH (08:53)
[2020-10-27] MEDS: FERROUS SULFATE 325 MG TAB PO SCH (08:54)
[2020-10-27] MEDS: ASPIRIN 81 MG ECTAB PO SCH (08:54)
[2020-10-27] MEDS: GABAPENTIN 300 MG CAP PO SCH ×3 (08:55→20:15)
[2020-10-27] MEDS: GABAPENTIN 400 MG CAP PO SCH ×3 (09:07→20:16)
[2020-10-27] MEDS: ENOXAPARIN INJ 30 MG/0.3 ML SYR SQ SCH (09:07)
[2020-10-27] MEDS: SIMVASTATIN 20 MG TAB PO SCH (20:15)
[2020-10-27] MEDS: CHOLECALCIFEROL 1,000 UNITS 25 MCG TAB PO SCH (20:15)
--- NOTE | 2020-10-28 07:58 | Hospitalist Progress Note ---
Date of Service October 28, 2020 Assessment & Plan (1) Closed pelvic fracture: Plan: Elena West is an 89-year-old female with PMHx that includes pneumonia due to COVID-19 virus, COPD (no inhalers, uses 2L NC QHS), h/o left femur intertrochanteric fracture, vitamin D deficiency, solitary thyroid nodule and chronic pain syndrome, who was admitted to [facility] on 10/25 for closed left pelvic fracture after mechanical fall. No plans for surgical intervention. 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 Confirmed via XR. Ortho consulted without plans for surgical intervention. - PT/OT recommend SNF on discharge--per case management patient will need a 3 night stay to qualify for SNF. Patient will meet 3 night requirement on 10/29. -[facility] to accept patient tomorrow - continue PT/OT while here - PRN pain regimen is controlling pain well: Tylenol/Tramadol/Morphine - continue DVT ppx with Lovenox; can transition to Aspirin 81mg PO daily on discharge (would recommend total of 6 weeks) - continue home Calcium/Vitamin D - recommend outpatient DXA per PCP COPD Patient was a smoker and quit <10 years ago. No home inhalers but does use 2L NC supplemental oxygen at night. - O2 via NC to maintain SpO2 88-92% - DuoNebs PRN - recommend further evaluation per PCP and consideration of anti-cholinergic inhaler HTN - Continue home metoprolol succinate - Consider discontinuation of Aspirin, will defer this decision to PCP HLD - Continue simvastatin GERD - Protonix per hospital formulary Depression - Continue sertraline Chronic Pain - Continue home Gabapentin FEN/GI: Heart-healthy diet DVT Prophylaxis: Lovenox Code Status: FULL CODE Disposition: Med/surg, pending placement to SNF (2) Status post fall: (3) Debilitated patient: (4) Esophageal reflux: (5) Chronic obstructive pulmonary disease: (6) HTN (hypertension): (7) Hyperlipidemia: (8) Depression: Admission and Anticipated Discharge Date Admission Date: October 26, 2020 Supervising Physician Co-Signing Physician Notes Resident Physician Supervision Note: I independently interviewed and examined the patient and verified the zurita history and physical, reviewed labs and image studies and agree with resident Dr. Kohli findings and care plan. Subjective Patient seen at bedside this AM. Pain well controlled with Tramadol x2. Has not needed morphine since 10/26. Tolerating PO well. No complaints/concerns. Review of Systems Review of Systems: Denies fever, chills, BALLARD, CP, palp, SOB, n/v, abd pain, diarrhea. Physical Exam Physical Exam: General: A&Ox3. NAD. Cooperative. HEENT: Atraumatic, normocephalic. Pulm: CTAB A&P. -wheezes, -rales, -rhonchi. Symmetrical chest rise. No increase work of breathing. No respiratory distress. Cardiac: RRR, -mrg. Radial pulses intact and symmetrical. Left hip: pain with soft palpation of anterior hip. Skin: soft, dry, no rash Results & Data Results & Data ([facility]) Vital Signs (Past 12 Hours) Vital Signs Temp Pulse Resp BP Pulse Ox 10/28/20 06:59 36.6 C 77 18 134/71 91 10/27/20 22:39 36.6 C 72 14 127/72 93 Resident Activity Tracking Resident Involvement: Resident Care Provided Care Provided: Adult Hospital Medicine (1) Closed pelvic fracture Encounter type: initial encounter Fracture alignment: nondisplaced Pelvic bone location: unspecified part of pelvis Qualified Code(s): S32.9XXA - Fracture of unspecified parts of lumbosacral spine and pelvis, initial encounter for closed fracture (2) HTN (hypertension) Hypertension type: essential hypertension Qualified Code(s): I10 - Essential (primary) hypertension
[2020-10-28] MEDS: METOPROLOL SUCC 25MG EXT REL TAB PO SCH (08:35)
[2020-10-28] MEDS: SERTRALINE HCL 50 MG TABLET PO SCH (08:36)
[2020-10-28] MEDS: buPROPion SR 150 MG TABCR PO SCH (08:36)
[2020-10-28] MEDS: PANTOprazole 40 MG TAB PO SCH (08:37)
[2020-10-28] MEDS: GABAPENTIN 400 MG CAP PO SCH ×3 (08:37→20:57)
[2020-10-28] MEDS: FERROUS SULFATE 325 MG TAB PO SCH (08:37)
[2020-10-28] MEDS: ASPIRIN 81 MG ECTAB PO SCH (08:37)
[2020-10-28] MEDS: GABAPENTIN 300 MG CAP PO SCH ×3 (08:37→20:58)
[2020-10-28] MEDS: ENOXAPARIN INJ 30 MG/0.3 ML SYR SQ SCH (08:38)
[2020-10-28] MEDS: traMADol HCL 50 MG TABLET PO PRN ×3 (08:42→17:06)
[2020-10-28] MEDS: CHOLECALCIFEROL 1,000 UNITS 25 MCG TAB PO SCH (20:57)
[2020-10-28] MEDS: SIMVASTATIN 20 MG TAB PO SCH (20:58)
[2020-10-29] MEDS: SERTRALINE HCL 50 MG TABLET PO SCH (08:44)
[2020-10-29] MEDS: ENOXAPARIN INJ 30 MG/0.3 ML SYR SQ SCH (08:44)
[2020-10-29] MEDS: PANTOprazole 40 MG TAB PO SCH (08:44)
[2020-10-29] MEDS: buPROPion SR 150 MG TABCR PO SCH (08:45)
[2020-10-29] MEDS: FERROUS SULFATE 325 MG TAB PO SCH (08:45)
[2020-10-29] MEDS: GABAPENTIN 300 MG CAP PO SCH ×2 (08:45→13:45)
[2020-10-29] MEDS: ASPIRIN 81 MG ECTAB PO SCH (08:45)
[2020-10-29] MEDS: METOPROLOL SUCC 25MG EXT REL TAB PO SCH (08:45)
[2020-10-29] MEDS: GABAPENTIN 400 MG CAP PO SCH ×2 (08:46→13:45)
[2020-10-29] MEDS: traMADol HCL 50 MG TABLET PO PRN (08:46)
--- NOTE | 2020-10-29 10:14 | Discharge Summary ---
Date of Service October 29, 2020 Admission HPI Per Admitting Provider The patient is an 89-year-old female with a past medical history doing pneumonia due to COVID-19 virus, left femur intertrochanteric fracture, vitamin D deficiency, solitary thyroid nodule, internal carotid artery stenosis, GERD, collagenous colitis, chronic pain syndrome, COPD, AAA infrarenal, hypertension, hyperlipidemia and depression. Patient presents with symptoms as noted above. She denies any associated lightheadedness or dizziness, and denies any head trauma. She does have a history of left hip fracture repaired by Dr. Figueroa. Principal Diagnosis Pelvic fracture Discharge Exam General: A&Ox3. NAD. Cooperative. HEENT: Atraumatic, normocephalic. Pulm: CTAB A&P. -wheezes, -rales, -rhonchi. Symmetrical chest rise. No increase work of breathing. No respiratory distress. Cardiac: RRR, -mrg. Radial pulses intact and symmetrical. Left hip: pain with soft palpation of anterior hip. Skin: soft, dry, no rash Discharge Data Allergies Allergy/AdvReac Type Severity Reaction Status Date / Time cephalexin [From Keflex] Allergy Intermediate Unknown Verified 10/25/20 18:11 Cephalosporins Allergy Intermediate HIVES/RASH Verified 10/25/20 18:11 celecoxib AdvReac Mild upset Verified 10/25/20 18:11 stomach venlafaxine AdvReac Mild GI UPSET Verified 10/25/20 18:11 Consultations 10/24/20 22:42 ED Decision to Admit Stat Hospital Course (1) Closed pelvic fracture: Elena West is an 89-year-old female with PMHx that includes pneumonia due to COVID-19 virus, COPD (no inhalers, uses 2L NC QHS), h/o left femur intertrochanteric fracture, vitamin D deficiency, solitary thyroid nodule and chronic pain syndrome, who was admitted to [facility] on 10/25 for closed left pelvic fracture after mechanical fall. No plans for surgical intervention. 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 Confirmed via XR. Ortho consulted without plans for surgical intervention. - PT/OT recommend SNF on discharge -Patient to be transferred to [facility] today at [place] - Given DVT ppx with Lovenox while in hospital; transition to Aspirin 81mg PO daily on discharge (would recommend total of 6 weeks) - continue home Calcium/Vitamin D - recommend outpatient DXA per PCP COPD Patient was a smoker and quit <10 years ago. No home inhalers but does use 2L NC supplemental oxygen at night. - intermittently received O2 via NC to maintain SpO2 88-92% - recommend further evaluation per PCP and consideration of anti-cholinergic inhaler HTN - Continued home metoprolol succinate - Consider discontinuation of Aspirin, will defer this decision to PCP HLD - Continued simvastatin GERD - Received Protonix per hospital formulary - Continue home Omeprazole at DC Depression - Continued home sertraline Chronic Pain - Continued home Gabapentin FEN/GI: Heart-healthy diet Code Status: FULL CODE Disposition: DC to [facility] (2) Status post fall: (3) Debilitated patient: (4) Esophageal reflux: (5) Chronic obstructive pulmonary disease: (6) HTN (hypertension): (7) Hyperlipidemia: (8) Depression: Total Time Total Time Spent Total Time Spent (In Minutes): see attending attestation Discharge Plan Discharge Items Patient Disposition: Transfer Custodial Fac Reason For Visit: PELVIC FRACTURE Discharge Diagnosis: Pelvic fracture Activity: Per Instructions section Non-emergency contact: Primary Care Provider Call non-emergency contact if: you have any medication questions, your symptoms worsen and your pain is not controlled Follow-up/Referrals: Demetris Garcia MD [Primary Care Provider] - Diet: Regular Diet Texture: Dental soft (bite-sized) Addtl Attending Provider Instructions: Elena West is an 89-year-old female with PMHx that includes pneumonia due to COVID-19 virus, COPD (no inhalers, uses 2L NC qHS), h/o left femur intertrochanteric fracture, vitamin D deficiency, solitary thyroid nodule and chronic pain syndrome, who was admitted to [facility] on 10/25 for closed left pelvic fracture after mechanical fall. No plans for surgical intervention. 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 Confirmed via XR. Ortho consulted without plans for surgical intervention. - PT/OT recommend SNF on discharge - continue PT/OT at SNF - DVT ppx with Lovenox in hospital; transitioned to Aspirin 81mg PO daily on discharge (would recommend total of 6 weeks) - continue home Calcium/Vitamin D - recommend outpatient DXA per PCP COPD Patient was a smoker and quit <10 years ago. No home inhalers but does use 2L NC supplemental oxygen at night. - O2 via NC prn to maintain SpO2 88-92% - Maintaining sats in low-90s on room air at time of DC - recommend further evaluation per PCP and consideration of anti-cholinergic inhaler HTN - Continue home metoprolol succinate - Consider discontinuation of Aspirin after 6 total weeks of DVT ppx, will defer this decision to PCP HLD - Continue simvastatin GERD - Continue home omeprazole Depression - Continue home sertraline Chronic Pain - Continue home Gabapentin FEN/GI: Heart-healthy diet Code Status: FULL CODE Disposition: Discharge to SNF Pending Studies at Discharge: No Stand-Alone Forms: [facility] Skilled Items Patient informed of condition?: Yes DNR: No Discharge Level of Care: Skilled Communicable Disease: No Discharge Prognosis: Stable Lines: None Urinary Catheter: No Medications and DC Order Prescriptions: Continued metoprolol succinate 25 mg tablet extended release 24 hr 25 mg PO DAILY Qty: 90 RF: 3 gabapentin 400 mg capsule 400 mg PO TID Qty: 90 RF: 5 Hold Instructions: decreasing simvastatin [Zocor] 20 mg tablet 20 mg PO QPM Qty: 90 RF: 3 bupropion HCl [Wellbutrin SR] 150 mg tablet sustained-release 12 hr 150 mg PO QAM Qty: 90 RF: 3 gabapentin 300 mg capsule 300 mg PO TID Qty: 270 RF: 3 sertraline [Zoloft] 100 mg tablet 150 mg PO DAILY Qty: 135 RF: 3 tramadol 50 mg tablet 50 mg PO TID PRN (Reason: pain) Qty: 90 RF: 0 ferrous sulfate 325 mg (65 mg iron) tablet 325 mg PO DAILY RF: 0 aspirin [Ecotrin Low Strength] 81 mg tablet,delayed release (DR/EC) 81 mg PO DAILY RF: 0 mupirocin 2 % ointment 1 applic topical BID Qty: 22 RF: 0 cholecalciferol (vitamin D3) [Dialyvite Vitamin D] 5,000 unit capsule 5,000 unit PO PM RF: 0 Citracal-D3 Plus Magnesium 250-40-125 mg-mg-unit tablet 2 tab PO DAILY RF: 0 acetaminophen [Mapap (acetaminophen)] 325 mg Tablet 650 mg PO Q4H PRN (Reason: pain) Qty: 30 RF: 0 albuterol sulfate 90 mcg/actuation HFA aerosol inhaler 2 puff INHALATION Q6 PRN (Reason: Shortness Of Breath Or Wheezing) RF: 0 omeprazole 20 mg capsule,delayed release(DR/EC) 20 mg PO QAM RF: 0 Discharge Orders: Discharge Order (Routine); Ordered 10/29/20 Ordered By: Jhon Hill Admission Data Admit Date/Time: 10/26/20 09:10 Attending Provider: Emma [facility] Admit Provider: Tatiana Sandhu Primary Care Provider: Demetris Garcia Other Providers: Orestes Colon ; [facility] Other Interventions: Discharge Summary Assessment (RN) Last Done: 10/29/20 13:12 Supervising Physician Co-Signing Physician Notes Resident Physician Supervision Note: I independently interviewed and examined the patient and verified the zurita history and physical, reviewed labs and image studies and agree with resident Dr. Kohli findings and care plan. Resident Activity Tracking Resident Involvement: Resident Care Provided Care Provided: Adult Hospital Medicine
[2020-10-29] MEDS: ACETAMINOPHEN 325 MG TAB PO PRN (14:35)
--- NOTE | 2020-10-29 15:12 | Emergency Department Note ---
ED Visit Note I have personally evaluated this patient examined her and reviewed the pertinent labs and data. I have discussed the case with Sima Cai, the physician assistant track and field coach and agree with the plan. Please refer to the PA note. This patient suffered a mechanical fall and subsequent pelvic fracture. On my exam she is resting comfortably and is very pleasant. Her abdomen is benign. She will be admitted for pain management and further treatment and evaluation . : Closed pelvic fracture Qualifiers: Encounter type: initial encounter Pelvic bone location: unspecified part of pelvis Fracture alignment: nondisplaced Qualified Code(s): S32.9XXA - Fracture of unspecified parts of lumbosacral spine and pelvis, initial encounter for closed fracture Fall Qualifiers: Encounter type: initial encounter Qualified Code(s): W19.XXXA - Unspecified fall, initial encounter
== END 2020-10-29 15:08 | DRG 544 ==
LOC: ED 20:10 → 3E 20:10 → SUATTDRO 22:56 → 3E 10-25 01:48 → SUATTDRO 10-26 09:10
DX: Z79.82 Long term (current) use of aspirin; M80.052A Age-related osteoporosis with current pathological fracture, left femur, initial encounter for fracture; I10 Essential (primary) hypertension; E78.5 Hyperlipidemia, unspecified; Z86.16 Personal history of COVID-19; J44.9 Chronic obstructive pulmonary disease, unspecified; Z87.891 Personal history of nicotine dependence; F32.9 Major depressive disorder, single episode, unspecified; Z99.81 Dependence on supplemental oxygen; W19.XXXA Unspecified fall, initial encounter; G89.4 Chronic pain syndrome; K21.9 Gastro-esophageal reflux disease without esophagitis